=== PATIENT | male | born 1965 | race African-American/Black ===

== ENCOUNTER 2020-09-19 07:22 | Emergency (ER) | payer MEDICAID, OTHER ==
[~2020-09-19] VITALS: Ht 177.8 cm; Wt 90.8 kg
[~2020-09-19 07:22] MED LIST: ALBU8.5H8 IH; NO HOME MEDS
[2020-09-19 07:32] VITALS: BP 127/74
== END 2020-09-19 08:52 | disposition home or self-care (01) ==
LOC: ER 07:23
DX: K40.90 Unilateral inguinal hernia, without obstruction or gangrene, not specified as recurrent (principal); Z87.891 Personal history of nicotine dependence; Z79.899 Other long term (current) drug therapy; Z72.89 Other problems related to lifestyle; Z87.01 Personal history of pneumonia (recurrent)
CPT/HCPCS: 99281

== ENCOUNTER 2021-03-08 18:18 | Emergency (ER) | payer MEDICAID ==
[~2021-03-08] VITALS: Ht 177.8 cm; Wt 85.0 kg
[~2021-03-08 18:18] MED LIST changes: +ALBU8.5H17 IH; -ALBU8.5H8 IH
[2021-03-08] MEDS ORDERED: CASIRIVIMAB/IMDEVIMAB inject. 10 ML in normal saline 100ml IV soln 100 ML IV ONE (20:15)
[2021-03-08] MEDS ORDERED: BAMLANIVIMAB 700MG, ETESEVIMAB 1,400MG in NS 100mL (Total vol 160ml) IV ONE (20:20)
[2021-03-08 22:28] VITALS: BP 124/87
== END 2021-03-08 22:30 | disposition home or self-care (01) ==
LOC: ER 18:19
DX: U07.1 COVID-19 (principal); R07.81 Pleurodynia; R06.02 Shortness of breath; R05.9 Cough, unspecified; F15.90 Other stimulant use, unspecified, uncomplicated; Z87.01 Personal history of pneumonia (recurrent); Z72.89 Other problems related to lifestyle; Z79.899 Other long term (current) drug therapy
CPT/HCPCS: 71045; 87635; 99284; C9803; M0245; Q0245; Q0239

== ENCOUNTER 2021-06-07 07:27 | Day surgery (SDC) | payer MEDICAID ==
[2021-06-02 13:55] LABS: BASOPHILS # (AUTO) 0.1 X10'3 (0-0.2); BASOPHILS % (AUTO) 1.3 % (0-1); EOSINOPHILS # (AUTO) 0.2 X10'3 (0-0.9); EOSINOPHILS % (AUTO) 3.2 % (0-6); LYMPHOCYTES # (AUTO) 2.3 X10'3 (1.1-4.8); LYMPHOCYTES % (AUTO) 39.3 % (21-51); MEAN CORPUSCULAR HGB CONC 33.8 g/dL (33.0-36.5); MEAN CORPUSCULAR VOLUME 88.8 FL (78-98); MEAN PLATELET VOLUME 7.8 FL (7.4-10.4); MONOCYTES # (AUTO) 0.7 X10'3 (0-0.9); MONOCYTES % (AUTO) 12.4 % (2-12); NEUTROPHILS # (AUTO) 2.5 X10'3 (1.8-7.7); NEUTROPHILS % (AUTO) 43.8 % (42-75); PRE OP HEMATOCRIT 40.8 % (42.0-52.0); PRE OP HEMOGLOBIN 13.8 g/dL (14.0-17.9); PRE OP PLATELET COUNT 213 X10'3 (140-440); RED BLOOD COUNT 4.59 X10'6 (4.70-6.10); RED CELL DISTRIBUTION WIDTH 14.3 % (11.5-14.5)
[2021-06-02 14:26] LABS: ALBUMIN 3.9 G/DL (3.4-5.0); ALBUMIN/GLOBULIN RATIO 1.3 (1.1-1.5); ALKALINE PHOSPHATASE 76 IU/L (46-116); BLOOD UREA NITROGEN 17 MG/DL (7-18); BUN/CREATININE RATIO 13.5 (5.4-32.0); CALCIUM 9.4 MG/DL (8.5-10.1); CHLORIDE 104 MMOL/L (99-107); CREATININE 1.26 MG/DL (0.60-1.10); PRE OP ALT 32 U/L (30-65); PRE OP ANION GAP 8 (8-16); PRE OP AST 43 U/L (10-37); PRE OP BILIRUB, TOTAL 0.3 MG/DL (0.0-1.0); PRE OP GLUCOSE 98 MG/DL (70-104); PRE OP POTASSIUM 3.9 MMOL/L (3.4-5.1); PRE OP SODIUM 141 MMOL/L (135-145); TOTAL CARBON DIOXIDE 29.4 MMOL/L (24-32); eGFR 72 ML/MIN
[~2021-06-07] VITALS: Ht 177.8 cm; Wt 90.9 kg
[2021-06-07] VITALS (19 sets, daily range): BP systolic 122–146; BP diastolic 71–105
[~2021-06-07 07:27] MED LIST changes: -ALBU8.5H17 IH; +BUPIVAcaine/PF 2.5mg/ml (0.25%) 10ml vial ONE; +cefazolin/dext.iso 2gm/50ml IV ONE; +famotidine 20mg tablet PO ONE; +ringers solution, lacted 1,000 ML IV SCH
[2021-06-07] MEDS ORDERED: ringers solution, lacted 1,000 ML IV SCH (07:45)
[2021-06-07] MEDS ORDERED: morphine 2 MG/ML inj. syringe IV PRN (07:45)
[2021-06-07] MEDS ORDERED: labetalol 20mg/4ml (5mg/ml) syringe IV PRN (07:45)
[2021-06-07] MEDS ORDERED: morphine 4 MG/ML inj SYRINge IV PRN (07:45)
[2021-06-07] MEDS ORDERED: hydrALAZINE 20mg/ml inj. IV PRN (07:45)
[2021-06-07] MEDS ORDERED: ondansetron/PF 4mg/2ml inj IV PRN (07:45)
[2021-06-07] MEDS ORDERED: fentaNYL/PF 50MCG/1 ML 2ML syringe IV PRN ×2 (07:45)
[2021-06-07] MEDS ORDERED: sevoflurane 250ml liquid IH ONE (08:09)
[2021-06-07] MEDS ORDERED: fentaNYL/PF 50MCG/1 ML 2ML syringe ONE (08:16)
[2021-06-07] MEDS ORDERED: midazolam 1 mg/ML 2ml injection ONE (08:16)
[2021-06-07] MEDS ORDERED: LIDOcaine 2% (20mg/ml) 5ml vial ONE (08:26)
[2021-06-07] MEDS ORDERED: propofol inj 20 ML IV ONE (08:26)
[2021-06-07] MEDS ORDERED: glycopyrrolate 0.2mg/ml inj ONE (08:27)
[2021-06-07] MEDS ORDERED: dexamethasone sod phosphate 4mg/ml inj. ONE (08:27)
[2021-06-07] MEDS ORDERED: neostigmine methylsulfate 1 MG/ML 10ml vial ONE (08:27)
[2021-06-07] MEDS ORDERED: rocuronium 10mg/ml inj IV ONE ×2 (08:27→09:43)
[2021-06-07] MEDS ORDERED: ondansetron/PF 4mg/2ml inj ONE (08:27)
--- NOTE | 2021-06-07 10:04 | NUR ---
Received from OR via KHOA MCKINNEY RUNNING TO LEFT 20G AC. ISLAND DRESSNG TO LAP SITES X3 CDI. PT WITH OPA IN AND MASK ON. , accompanied by Anesthesiologist NATALIE and report given by STOCKKEEPER AND Anesthesiolgist. Addendum: 06/07/21 at 1023 by Belkis Borges RN Amended: Links added.
[2021-06-07] MEDS ORDERED: LIDOcaine 2% 10ml TOPICAL JELLY (Urojet) MM ONE (13:25)
--- NOTE | 2021-06-07 14:04 | NUR ---
TOLENTINO CATHETER PLACED IN PATIENT 2' INABILITY TO VOID. VSS DENIES PAIN. DRESSING AND TAKEN OUT BY FRIEND AND TAKEN HOME. ALL QUESTIONS ANSWERED AND CRITERIA MET FOR DC. IV OUT WITHOUT COMPLICATIONS. Addendum: 06/07/21 at 1424 by Steven Estrada RN, RN Amended: Links added.
== END 2021-06-07 14:04 | disposition home or self-care (01) ==
LOC: PAS 07:27
PROVIDERS: ATTEND Surgery
DX: K40.30 Unilateral inguinal hernia, with obstruction, without gangrene, not specified as recurrent (principal); Z79.899 Other long term (current) drug therapy; Z98.890 Other specified postprocedural states; Z87.01 Personal history of pneumonia (recurrent); Z87.891 Personal history of nicotine dependence; Z72.89 Other problems related to lifestyle; Z20.822 Contact with and (suspected) exposure to COVID-19; Z80.8 Family history of malignant neoplasm of other organs or systems
CPT/HCPCS: 36415; 49650; 80053; 82948; 85025; 93005; C1758; C1781; J0690; J1100; J2250; J2405; J2704; J2710; J3010; J3490; J7030; J7120; S2900; U0003; U0005; Z7506; Z7508; Z7512; A4215; A4618

== ENCOUNTER 2021-06-10 16:43 | Emergency (ER) | payer MEDICAID ==
[~2021-06-10] VITALS: Ht 177.8 cm; Wt 86.0 kg
[~2021-06-10 16:43] MED LIST changes: -BUPIVAcaine/PF 2.5mg/ml (0.25%) 10ml vial ONE; -cefazolin/dext.iso 2gm/50ml IV ONE; -famotidine 20mg tablet PO ONE; -ringers solution, lacted 1,000 ML IV SCH
[2021-06-10 17:36] LABS: BASOPHILS % (AUTO) 0.5 % (0-1); EOSINOPHILS # (AUTO) 0.1 X10'3 (0-0.9); EOSINOPHILS % (AUTO) 1.5 % (0-6); HEMATOCRIT 46.6 % (42.0-52.0); HEMOGLOBIN 15.8 g/dl (14.0-17.9); LYMPHOCYTES % (AUTO) 13.1 % (21-51); MEAN CORPUSCULAR HEMOGLOBIN 29.9 PG (27.0-31.0); MEAN CORPUSCULAR HGB CONC 33.9 g/dL (33.0-36.5); MEAN CORPUSCULAR VOLUME 88.3 FL (78-98); MEAN PLATELET VOLUME 7.7 FL (7.4-10.4); MONOCYTES # (AUTO) 0.8 X10'3 (0-0.9); MONOCYTES % (AUTO) 10.2 % (2-12); NEUTROPHILS # (AUTO) 5.9 X10'3 (1.8-7.7); NEUTROPHILS % (AUTO) 74.7 % (42-75); PLATELET COUNT 256 X10'3 (140-440); RED BLOOD COUNT 5.28 X10'6 (4.70-6.10); RED CELL DISTRIBUTION WIDTH 14.4 % (11.5-14.5); WHITE BLOOD COUNT 7.9 X10'3 (4.5-11.0)
[2021-06-10 18:00] LABS: ALANINE AMINOTRANSFERASE 32 U/L (12-78); ALBUMIN 4.1 G/DL (3.4-5.0); ALBUMIN/GLOBULIN RATIO 1.1 (1.1-1.5); ALKALINE PHOSPHATASE 93 IU/L (46-116); ANION GAP 6 (8-16); ASPARTATE AMINO TRANSFERASE 24 U/L (10-37); BILIRUBIN,TOTAL 0.8 MG/DL (0.1-1.0); BLOOD UREA NITROGEN 18 MG/DL (7-18); BUN/CREATININE RATIO 16.1 (5.4-32.0); CALCIUM 9.3 MG/DL (8.5-10.1); CHLORIDE 102 MMOL/L (99-107); CREATININE 1.12 MG/DL (0.60-1.10); GLUCOSE 89 MG/DL (70-104); MAGNESIUM 2.2 MG/DL (1.5-2.4); POTASSIUM 4.4 MMOL/L (3.5-5.1); SODIUM 139 MMOL/L (135-145); TOTAL CARBON DIOXIDE 30.9 MMOL/L (24-32); eGFR 82 ML/MIN
--- NOTE | 2021-06-10 18:02 | NUR ---
patient's spouse took her back to his car.
[2021-06-10 23:08] VITALS: BP 145/101
[2021-06-10] MEDS ORDERED: proCHLORperazine 10 MG/2 ml inj IV ONE (23:35)
[2021-06-10] MEDS ORDERED: normal saline 1000ML IV soln IVB ONE (23:35)
[2021-06-10] MEDS ORDERED: pantoprazole 40MG/D5 100ML BAG 100 ML IV ONE (23:35)
[2021-06-10] MEDS ORDERED: pantoprazole 40MG/NS 100ML BAG 100 ML IV ONE (23:50)
[2021-06-11] MEDS ORDERED: ONDA8TAB13 PO ×2 (01:48)
[2021-06-11] MEDS ORDERED: PANT-47 PO ×2 (01:48)
[2021-06-11 02:38] LABS: CLARITY,URINE SLIGHTLY CLOUDY (Clear); GLUCOSE, URINE NEGATIVE (Neg); KETONES,URINE TRACE mg/dl (Neg); LEUKOCYTE ESTERASE ,URINE NEGATIVE (Neg); NITRITES, URINE NEGATIVE (Neg); OCCULT BLOOD,URINE SMALL (Neg); PROTEIN,URINE TRACE mg/dl (Neg); UROBILINOGEN,URINE 0.2 E.U/dL (0.2-1.0)
[2021-06-11 02:41] LABS: COLOR,URINE AMBER (Yellow); UA COLLECTION TYPE CLN CATCH MIDSTREAM
[2021-06-11 03:22] LABS: BACTERIA,URINE 2+ /HPF (Neg); WBC,URINE 20-30 /HPF (0-4)
[2021-06-11 03:23] LABS: MUCUS STRANDS FEW /LPF (Neg); SPERM MANY /HPF (NEGATIVE); SQUAMOUS EPITHELIAL CELL,UR FEW /LPF (FEW)
[2021-06-12] MEDS ORDERED: NAPR220T67 PO (15:04)
== END 2021-06-11 02:34 | disposition home or self-care (01) ==
LOC: ER 16:44
DX: R10.13 Epigastric pain (principal); K40.90 Unilateral inguinal hernia, without obstruction or gangrene, not specified as recurrent; R11.0 Nausea; R19.7 Diarrhea, unspecified; F17.200 Nicotine dependence, unspecified, uncomplicated; Z87.01 Personal history of pneumonia (recurrent); Z79.899 Other long term (current) drug therapy
CPT/HCPCS: 36415; 80053; 81001; 83735; 85025; 87077; 87088; 87186; 96361; 96374; 96375; 99284; C9113; J0780; J7030

== ENCOUNTER 2021-06-12 12:06 | Inpatient (IN) | payer MEDICAID ==
[~2021-06-12] VITALS: Ht 177.8 cm; Wt 99.5 kg
[~2021-06-12 12:06] MED LIST changes: +ONDA8TAB13 PO; +PANT-47 PO
--- NOTE | 2021-06-12 12:53 | NUR ---
ATTEMPT EKG, PT CURRENTLY VOMITING AND ROLLING IN BED. WILL ATTEMPT AGAIN AT LATER TIME AFTER MEDS.
[2021-06-12 12:56] LABS: BASOPHILS % (AUTO) 0.2 % (0-1); EOSINOPHILS % (AUTO) 0.5 % (0-6); HEMATOCRIT 54.5 % (42.0-52.0); LYMPHOCYTES # (AUTO) 0.6 X10'3 (1.1-4.8); LYMPHOCYTES % (AUTO) 11.9 % (21-51); MEAN CORPUSCULAR VOLUME 88.4 FL (78-98); MEAN PLATELET VOLUME 8.6 FL (7.4-10.4); MONOCYTES % (AUTO) 18.4 % (2-12); NEUTROPHILS # (AUTO) 3.7 X10'3 (1.8-7.7); PLATELET COUNT 321 X10'3 (140-440); RED BLOOD COUNT 6.16 X10'6 (4.70-6.10); RED CELL DISTRIBUTION WIDTH 14.4 % (11.5-14.5); WHITE BLOOD COUNT 5.3 X10'3 (4.5-11.0)
[2021-06-12 13:03] LABS: HEMOGLOBIN 18.5 g/dl (14.0-17.9)
--- NOTE | 2021-06-12 13:04 | NUR ---
HGB 18.[address] LYNNE
[2021-06-12 13:05] LABS: ALANINE AMINOTRANSFERASE 65 U/L (12-78); ALBUMIN 4.6 G/DL (3.4-5.0); ALBUMIN/GLOBULIN RATIO 0.8 (1.1-1.5); ALKALINE PHOSPHATASE 114 IU/L (46-116); ANION GAP 15 (8-16); ASPARTATE AMINO TRANSFERASE 51 U/L (10-37); BILIRUBIN,TOTAL 1.3 MG/DL (0.1-1.0); BLOOD UREA NITROGEN 54 MG/DL (7-18); BUN/CREATININE RATIO 21.8 (5.4-32.0); CALCIUM 9.5 MG/DL (8.5-10.1); CHLORIDE 94 MMOL/L (99-107); CREATININE 2.48 MG/DL (0.60-1.10); GLUCOSE 161 MG/DL (70-104); POTASSIUM 4.8 MMOL/L (3.5-5.1); SODIUM 134 MMOL/L (135-145); TOTAL CARBON DIOXIDE 25.2 MMOL/L (24-32); TOTAL PROTEIN 10.1 G/DL (6.4-8.2); eGFR 33 ML/MIN
[2021-06-12] MEDS ORDERED: normal saline 1000ML IV soln IVB ONE ×2 (13:10→15:10)
[2021-06-12] MEDS ORDERED: ondansetron/PF 4mg/2ml inj IV ONE ×2 (13:10→20:50)
[2021-06-12] MEDS: morphine 4 MG/ML inj SYRINge IV PRN ×2 (13:22→17:14)
[2021-06-12 13:32] LABS: PLATELET ESTIMATE NORMAL; TOTAL CELLS COUNTED 100
[2021-06-12] MEDS ORDERED: NAPR220T67 PO (15:04)
[2021-06-12] MEDS ORDERED: magnesium Cl slow-release 64mg tablet PO PRN (16:15)
[2021-06-12] MEDS ORDERED: potassium Cl 20 mEq SR tablet PO PRN ×2 (16:15)
[2021-06-12] MEDS ORDERED: magnesium 4gm in 100ml NS 100 ML IV PRN (16:15)
[2021-06-12] MEDS ORDERED: magnesium 2GM in 50ml NS 50 ML IV PRN (16:15)
[2021-06-12] MEDS ORDERED: potassium CL 10mEq/100ml bag 100 ML IV PRN (16:15)
[2021-06-12] MEDS: normal saline 1000ml 1,000 ML IV SCH ×2 (16:15→22:00)
--- NOTE | 2021-06-12 16:55 | NUR ---
ATTEMPT NG TUBE X 6 TIMES 16 14 12 FR ALL USED SECOND NURSE ALLY ATTEMPTED X 2
[2021-06-12 17:16] LABS: MAGNESIUM 2.2 MG/DL (1.5-2.4); POTASSIUM 4.1 MMOL/L (3.5-5.1)
[2021-06-12] MEDS ORDERED: LIDOcaine Viscous 15ml cup MM PRN ×2 (19:25→19:30)
[2021-06-12] MEDS: K and/or MAG REPLACEMENT MC SCH (20:00)
[2021-06-12] MEDS: morphine 2 MG/ML inj. syringe IV PRN (21:03)
--- NOTE | 2021-06-12 21:20 | NUR ---
Received report from Brooklyn OLIVAS Rn. Patient to follow shortly.
--- NOTE | 2021-06-12 21:30 | NUR ---
Patient arrived to floor via gurney from the ER. Patient transferred himself into bed and was immediately placed back on low cont suction. Brown drainage noted to YUMI luna. Pt. denied being in a lot of pain at this time as Er had given him pain medication prior to transfer up here. Addendum: 06/13/21 at 0129 by Aimee Lopez RN Placed on low intermittent suction NOT continuous.
[2021-06-12 21:40] VITALS: BP 151/70
[2021-06-13] VITALS (28 sets, daily range): BP systolic 74–168; BP diastolic 41–88
[2021-06-13] MEDS: morphine 2 MG/ML inj. syringe IV PRN ×3 (00:40→06:49)
[2021-06-13] MEDS ORDERED: morphine 2 MG/ML inj. syringe IV PRN ×2 (01:00→03:50)
[2021-06-13] MEDS: ondansetron/PF 4mg/2ml inj IV PRN ×3 (01:53→15:58)
--- NOTE | 2021-06-13 01:57 | NUR ---
Patient has not voided since being transferred to this floor.Bladder scan revealed >500cc in bladder. New order for F/C for retention and UA.
[2021-06-13] MEDS ORDERED: LIDOcaine 2% 10ml TOPICAL JELLY (Urojet) TP ONE (02:00)
[2021-06-13 02:42] LABS: CLARITY,URINE CLOUDY (Clear); COLOR,URINE YELLOW (Yellow); GLUCOSE, URINE NEGATIVE (Neg); KETONES,URINE NEGATIVE (Neg); LEUKOCYTE ESTERASE ,URINE TRACE (Neg); NITRITES, URINE NEGATIVE (Neg); OCCULT BLOOD,URINE TRACE-INTACT (Neg); PH,URINE 5.5 (4.8-8.0); PROTEIN,URINE TRACE mg/dl (Neg); UROBILINOGEN,URINE 0.2 E.U/dL (0.2-1.0)
[2021-06-13 02:45] LABS: UA COLLECTION TYPE FOLEY CATH
[2021-06-13 02:50] LABS: HYALINE CASTS >30 /LPF (NEGATIVE); MUCUS STRANDS MANY /LPF (Neg); SQUAMOUS EPITHELIAL CELL,UR FEW /LPF (FEW)
[2021-06-13 02:51] LABS: BACTERIA,URINE 3+ /HPF (Neg); RBC,URINE 0-2 /HPF (0-2)
[2021-06-13 02:52] LABS: TRANSITIONAL EPI CELLS,URINE FEW /HPF
[2021-06-13 06:00] LABS: BASOPHILS % (AUTO) 0.1 % (0-1); EOSINOPHILS % (AUTO) 0.1 % (0-6); HEMATOCRIT 47.7 % (42.0-52.0); HEMOGLOBIN 15.9 g/dl (14.0-17.9); LYMPHOCYTES # (AUTO) 0.3 X10'3 (1.1-4.8); LYMPHOCYTES % (AUTO) 8.6 % (21-51); MEAN CORPUSCULAR HEMOGLOBIN 29.9 PG (27.0-31.0); MEAN CORPUSCULAR HGB CONC 33.4 g/dL (33.0-36.5); MEAN CORPUSCULAR VOLUME 89.6 FL (78-98); MEAN PLATELET VOLUME 8.4 FL (7.4-10.4); MONOCYTES # (AUTO) 0.8 X10'3 (0-0.9); MONOCYTES % (AUTO) 19.2 % (2-12); NEUTROPHILS # (AUTO) 2.9 X10'3 (1.8-7.7); PLATELET COUNT 254 X10'3 (140-440); RED BLOOD COUNT 5.32 X10'6 (4.70-6.10); RED CELL DISTRIBUTION WIDTH 14.1 % (11.5-14.5); WHITE BLOOD COUNT 4.1 X10'3 (4.5-11.0)
[2021-06-13 06:41] LABS: ALBUMIN 3.4 G/DL (3.4-5.0); ANION GAP 25 (8-16); BLOOD UREA NITROGEN 79 MG/DL (7-18); BUN/CREATININE RATIO 16.4 (5.4-32.0); CALCIUM 7.6 MG/DL (8.5-10.1); CHLORIDE 101 MMOL/L (99-107); CREATININE 4.82 MG/DL (0.60-1.10); GLUCOSE 138 MG/DL (70-104); POTASSIUM 4.2 MMOL/L (3.5-5.1); SODIUM 141 MMOL/L (135-145); TOTAL CARBON DIOXIDE 15.5 MMOL/L (24-32); eGFR 15 ML/MIN
--- NOTE | 2021-06-13 06:45 | NUR ---
Problems reprioritized. Patient report given, questions answered & plan of care reviewed with Paola HARLEY.
--- NOTE | 2021-06-13 07:28 | NUR ---
PAGER ID: [phone] MESSAGE: Paola Surg [phone] Re: Zachary [id number] patient very painful please call
[2021-06-13 07:29] LABS: NUCLEATED RED BLOOD CELLS 1 /100WBC (0-0); PLATELET ESTIMATE NORMAL; TOTAL CELLS COUNTED 100
[2021-06-13 07:34] LABS: GIANT PLATELET FEW
[2021-06-13] MEDS: K and/or MAG REPLACEMENT MC SCH ×2 (08:00→20:00)
[2021-06-13] MEDS: HYDROmorphone 1 mg/ml syringe IV PRN ×6 (09:00→14:48)
[2021-06-13] MEDS: metoclopramide 5 mg/ml inj IV SCH ×2 (13:33→21:10)
--- NOTE | 2021-06-13 15:54 | NUR ---
PAGER ID: [phone] MESSAGE: Shabnam-Surg [phone] Re: Zachary 348A please call concerned about patient and how much coming out of NG tube Received call back from Dr Gardner aware of patients output of NG of 3000ml's - Received orders for 1200ml NS bolus to run over 1 hour Keep IV fluids running NS @ 100 Labs Mg Phos, BMP, PBNP Dr Gardner is aware we are trying to get a hold of Dr Bland re: output and patient not looking very well.
--- NOTE | 2021-06-13 16:00 | NUR ---
was able to contact Dr Bland received orders for 500 ml's of 5% albumin
--- NOTE | 2021-06-13 16:01 | NUR ---
Called Dr Bland office unable to leave message due to voicemail full, will continue to try.
[2021-06-13] MEDS: normal saline 1000ml 1,000 ML IVB SCH ×2 (16:09→17:08)
[2021-06-13] MEDS ORDERED: albumin (Human) 5% 250ml 250 ML IV ONE ×3 (16:30→20:40)
--- NOTE | 2021-06-13 16:32 | NUR ---
PAGER ID: [phone] MESSAGE: Shabnam Surg [phone] Re: Zachary GilletteA Called Rapid patients BP 68/48 HR 116 hand to cold to get sats low urine output
[2021-06-13] MEDS ORDERED: dextrose 50%-water 50ml dispensing syringe IV ONE ×4 (16:35→20:55)
--- NOTE | 2021-06-13 16:35 | NUR ---
Rapid response called on patient due to low urine output. Patients NG tube 3000ml's+ of gandhi colored drainage. Patients current blood pressure is 68/48 HR 118 RR 24 Temp 98.0Ax and unable to get O2 sats due to patient is very cold. Patients blood glucose was 34. Patient was given 1 amp dextrose, currently has a NS bolus of 1200ml's running, Urine output appears to only been 70ml's today. Patients family at bedside and requested they step out into the ma so we can better treat patient. Cassie ICU charge showed up to the floor along with Respiratory.
[2021-06-13 16:54] LABS: ABG HCO3 7.2 mmol/L (22.0-26.0); ABG OXYGEN SATURATION 97.2 % (94-97); ABG PO2 (T) 117.3 mmHg (75.0-100.0); ALLEN'S TEST POSITIVE; FCOHb 0.4 % (0.0-3.9); FLOW 15 L/min; FMetHb 0.3 % (0.0-1.5); FO2Hb 96.5 % (94-97); TOTAL HEMOGLOBIN 15.3 G/dl (14.0-18.0)
--- NOTE | 2021-06-13 17:15 | NUR ---
Patients daughter and other visitor were waiting in the waiting area on surgical. I went over and spoke to both of them and advised what was going on at this time and that patient was being transported to ICU, I stated patient might end up being intubated and possibly going to surgery tonight but she would be able to get a better report once patient is stabilized in the ICU. Daughter would like to have her sister notified her name is Susie Sharma i will put the phone number in the SBAR.
[2021-06-13 17:30] LABS: ALBUMIN 3.1 G/DL (3.4-5.0); ANION GAP 29 (8-16); BLOOD UREA NITROGEN 96 MG/DL (7-18); BUN/CREATININE RATIO 14.2 (5.4-32.0); CALCIUM 7.2 MG/DL (8.5-10.1); CHLORIDE 101 MMOL/L (99-107); CREATININE 6.74 MG/DL (0.60-1.10); GLUCOSE 79 MG/DL (70-104); MAGNESIUM 2.5 MG/DL (1.5-2.4); POTASSIUM 5.8 MMOL/L (3.5-5.1); SODIUM 140 MMOL/L (135-145); eGFR 10 ML/MIN
--- NOTE | 2021-06-13 17:30 | NUR ---
Patient transported to ICU via hospital bed with MELTER HELPER Cassie, Primary RN Paola and Resource RN Sg with respiratory with them. Patients critical values came in at 1730 CO@ 10.1 and Phos 12.9. Called results to ICU Ursula. I also called Dr Gardner and Dr Bland and they are both aware of the criticals. I also informed both Md's of the results of K+ 5.8 [address] 2[address] Bland stated that he will be taking the patient to surgery.
[2021-06-13 17:32] LABS: TOTAL CARBON DIOXIDE 10.1 MMOL/L (24-32)
[2021-06-13 17:33] LABS: PHOSPHORUS 12.9 MG/DL (2.3-4.5)
[2021-06-13] MEDS ORDERED: fentaNYL/PF 50MCG/1 ML 2ML syringe ONE (17:35)
[2021-06-13] MEDS ORDERED: NORepinephrine 8mg/ 250ml NS 250 ML IV ONE (17:36)
[2021-06-13] MEDS ORDERED: midazolam 1 mg/ML 2ml injection IV ONE (17:55)
--- NOTE | 2021-06-13 18:30 | NUR ---
Patient arrived to ICU via the Rapid response team (ICU supercharge repair supervisor and RT). Med/Surg nurse also accompanied the patient to ICU. Patient arrived via bed and was alert and oriented x3 in seemingly extreme distress and pain. Dr. Cross met us bedside. Patient slid over to ICU bed and connected to ICU monitors. Patient blood pressure was 74/42, at time of arrival. Levophed was started. Shortly after receiving patient Dr. Cross decided to intubate the patient. Patient was given a total of 100 mcg of Fent, 6 mg of Versed, 2 amps of Bicarb, 20 of Etomidate and 20 of Rocuronium. Patient was intubated and then Dr. Cross moved to insert a central line and arterial line in the right groin. After line placement was successful patient was then started on Fentanyl and Versed per MD order and titrated per protocol. Chest xray confirmed placement of ETT. Per Med/surg nurse, "patient is here for SBO and recently had a hernia repair". Patient has critical LA of [address] Cross aware. Patient's Levophed was titrated per protocol to maintain a MAP of 60.
[2021-06-13] MEDS ORDERED: NORepinephrine inj. 8 MG in dextrose 5%-water 242 ML IV SCH (18:40)
--- NOTE | 2021-06-13 18:40 | NUR ---
Patient in room ICU 2044. I have received report from Lorri HARLEY and had the opportunity to ask questions and assume patient care.
[2021-06-13] MEDS: normal saline 1000ml 1,000 ML IV SCH (19:21)
[2021-06-13 19:22] LABS: ABG BASE EXCESS -17.3 mmol/L (-2.0-2.0); ABG HCO3 12.1 mmol/L (22.0-26.0); ABG OXYGEN SATURATION 99.2 % (94-97); ABG PCO2 (T) 39.8 mmHg (35.0-48.0); ABG PO2 (T) 243.4 mmHg (75.0-100.0); FCOHb 0.3 % (0.0-3.9); FMetHb 0.1 % (0.0-1.5); FO2Hb 98.8 % (94-97); PATIENT TEMPERATURE 36.2; PEEP 5 cm H2O; RESPIRATORY RATE 26 b/min; TIDAL VOLUME 450 mL; TOTAL HEMOGLOBIN 14.3 G/dl (14.0-18.0)
[2021-06-13] MEDS ORDERED: rocuronium 10mg/ml inj IV ONE (19:35)
[2021-06-13] MEDS ORDERED: NORepinephrine 8 MG in NS 250 ML BAG (32 mcg/ml) IV ONE (19:35)
[2021-06-13] MEDS ORDERED: sevoflurane 250ml liquid IH ONE (19:35)
--- NOTE | 2021-06-13 19:45 | NUR ---
Pt off the floor to the OR.
--- NOTE | 2021-06-13 20:35 | NUR ---
Pt returned from OR. Placed back on our monitor and vent. All vaso active meds infusing through the central line. CVP and Art line transduced, zeroed, and have good waveform. Dr. Turner at bedside requesting a bicarb push and bicarb drip started along with 250ml albumin and increasing maintenance fluids increased to 250ml/hr. Orders placed, waiting on bicarb drip from pharmacy.
[2021-06-13] MEDS ORDERED: sodium bicarbonate (8.4%) 1 mEq/ml syringe IV ONE ×2 (20:40→20:55)
[2021-06-13 20:48] LABS: ABG BASE EXCESS -12.7 mmol/L (-2.0-2.0); ABG OXYGEN SATURATION 99.4 % (94-97); ABG PCO2 (T) 33.7 mmHg (35.0-48.0); ABG PO2 (T) 320.9 mmHg (75.0-100.0); FCOHb 0.2 % (0.0-3.9); FMetHb 0.3 % (0.0-1.5); FO2Hb 98.9 % (94-97); PATIENT TEMPERATURE 36.3; PEEP 5 cm H2O; RESPIRATORY RATE 28 b/min; TIDAL VOLUME 450 mL; TOTAL HEMOGLOBIN 12.7 G/dl (14.0-18.0)
[2021-06-13] MEDS ORDERED: sodium bicarbonate (8.4%) inj. 150 MEQ in dextrose 5%-water 1,000 ML IV SCH (20:50)
[2021-06-13] MEDS ORDERED: VANCOMYCIN 1GM/200ML IVPB 200 ML IV ONE (20:50)
[2021-06-13] MEDS: piperacillin/tazo 3.375gm/50ml 50 ML IV SCH (21:59)
[2021-06-13 23:51] LABS: BASOPHILS % (AUTO) 0.2 % (0-1); EOSINOPHILS % (AUTO) 0.3 % (0-6); HEMATOCRIT 38.7 % (42.0-52.0); HEMOGLOBIN 12.6 g/dl (14.0-17.9); LYMPHOCYTES # (AUTO) 0.3 X10'3 (1.1-4.8); LYMPHOCYTES % (AUTO) 18.2 % (21-51); MEAN CORPUSCULAR HEMOGLOBIN 29.1 PG (27.0-31.0); MEAN CORPUSCULAR HGB CONC 32.6 g/dL (33.0-36.5); MEAN CORPUSCULAR VOLUME 89.3 FL (78-98); MEAN PLATELET VOLUME 8.7 FL (7.4-10.4); MONOCYTES # (AUTO) 0.1 X10'3 (0-0.9); MONOCYTES % (AUTO) 6.8 % (2-12); NEUTROPHILS # (AUTO) 1.3 X10'3 (1.8-7.7); NEUTROPHILS % (AUTO) 74.5 % (42-75); PLATELET COUNT 151 X10'3 (140-440); RED BLOOD COUNT 4.33 X10'6 (4.70-6.10); RED CELL DISTRIBUTION WIDTH 14.7 % (11.5-14.5); WHITE BLOOD COUNT 1.8 X10'3 (4.5-11.0)
[2021-06-13 23:59] LABS: APTT 41 SECONDS (22-32)
[2021-06-14] VITALS (33 sets, daily range): BP systolic 81–126; BP diastolic 43–69
[2021-06-14 00:19] LABS: ALBUMIN 3.1 G/DL (3.4-5.0); ALBUMIN/GLOBULIN RATIO 1.4 (1.1-1.5); ALKALINE PHOSPHATASE 86 IU/L (46-116); ANION GAP 20 (8-16); BILIRUBIN,TOTAL 1.8 MG/DL (0.1-1.0); BLOOD UREA NITROGEN 102 MG/DL (7-18); BUN/CREATININE RATIO 15.8 (5.4-32.0); CHLORIDE 105 MMOL/L (99-107); CREATININE 6.47 MG/DL (0.60-1.10); GLUCOSE 136 MG/DL (70-104); MAGNESIUM 1.9 MG/DL (1.5-2.4); PHOSPHORUS 8.2 MG/DL (2.3-4.5); POTASSIUM 4.5 MMOL/L (3.5-5.1); SODIUM 144 MMOL/L (135-145); TOTAL CARBON DIOXIDE 18.8 MMOL/L (24-32); TOTAL PROTEIN 5.3 G/DL (6.4-8.2); eGFR 11 ML/MIN
[2021-06-14 00:58] LABS: ASPARTATE AMINO TRANSFERASE 6325 U/L (10-37)
[2021-06-14 00:59] LABS: ALANINE AMINOTRANSFERASE 3220 U/L (12-78)
[2021-06-14 01:02] LABS: CALCIUM 5.3 MG/DL (8.5-10.1)
--- NOTE | 2021-06-14 01:12 | NUR ---
Received critical calcium lab 5.3 from lab at 0100, spoke with Dr Corona Gar at 0112 and informed him about the patients condition and the critical lab result. The Doctor ordered Calcium Gluconate 3 gm IV one time dose. Will continue to monitor the patient.
[2021-06-14 01:58] LABS: GIANT PLATELET FEW; LARGE PLATELETS FEW; PLATELET ESTIMATE NORMAL; SMUDGE CELLS 1+; TOTAL CELLS COUNTED 100; TOXIC GRANULATION 2+; TOXIC VACUOLATION 2+
[2021-06-14] MEDS: CALCIUM GLUC 1gm/50ml NACL,iso 50 ML IV SCH ×5 (02:24→23:12)
--- NOTE | 2021-06-14 02:40 | NUR ---
Continuing to titrate up the levophed to maintain a MAP greater than 60mmHg. Pt still afebrile, tolerating vent well.
[2021-06-14] MEDS: NORepinephrine 8mg/ 250ml NS 250 ML IV PRN ×3 (02:53→08:17)
[2021-06-14] MEDS: sodium bicarbonate (8.4%) inj. 150 MEQ in dextrose 5%-water 1,000 ML IV SCH ×3 (02:53→19:49)
[2021-06-14] MEDS: normal saline 1000ml 1,000 ML IV SCH ×7 (02:53→22:08)
[2021-06-14] MEDS: metoclopramide 5 mg/ml inj IV SCH ×4 (02:55→20:57)
[2021-06-14 03:06] LABS: ABG BASE EXCESS -10.6 mmol/L (-2.0-2.0); ABG HCO3 15.2 mmol/L (22.0-26.0); ABG OXYGEN SATURATION 89.1 % (94-97); ABG PCO2 (T) 33.5 mmHg (35.0-48.0); ABG PO2 (T) 59.7 mmHg (75.0-100.0); FCOHb 0.8 % (0.0-3.9); FMetHb 0.3 % (0.0-1.5); FO2Hb 88.1 % (94-97); PATIENT TEMPERATURE 36.7; PEEP 5 cm H2O; RESPIRATORY RATE 28 b/min; TIDAL VOLUME 450 mL; TOTAL HEMOGLOBIN 13.8 G/dl (14.0-18.0)
[2021-06-14] MEDS ORDERED: vasopressin inj. 40 UNIT in dextrose 5%-water 50ml 38 ML IV SCH (05:10)
[2021-06-14] MEDS ORDERED: ringers solution, lacted 1,000 ML IV SCH (05:10)
[2021-06-14 05:34] LABS: BASOPHILS % (AUTO) 0.1 % (0-1); EOSINOPHILS # (AUTO) 0.1 X10'3 (0-0.9); EOSINOPHILS % (AUTO) 2.6 % (0-6); HEMATOCRIT 37.6 % (42.0-52.0); HEMOGLOBIN 12.6 g/dl (14.0-17.9); LYMPHOCYTES # (AUTO) 0.3 X10'3 (1.1-4.8); MEAN CORPUSCULAR HEMOGLOBIN 29.5 PG (27.0-31.0); MEAN CORPUSCULAR HGB CONC 33.5 g/dL (33.0-36.5); MEAN CORPUSCULAR VOLUME 87.9 FL (78-98); MEAN PLATELET VOLUME 8.9 FL (7.4-10.4); MONOCYTES # (AUTO) 0.2 X10'3 (0-0.9); NEUTROPHILS # (AUTO) 2.7 X10'3 (1.8-7.7); NEUTROPHILS % (AUTO) 81.3 % (42-75); PLATELET COUNT 155 X10'3 (140-440); RED BLOOD COUNT 4.28 X10'6 (4.70-6.10); RED CELL DISTRIBUTION WIDTH 14.4 % (11.5-14.5); WHITE BLOOD COUNT 3.3 X10'3 (4.5-11.0)
--- NOTE | 2021-06-14 05:40 | NUR ---
Rounded on pt with Dr. Quinn, received orders to start vasopressin and give a 1L LR bolus due to high levels of levo required.
[2021-06-14 05:59] LABS: ALBUMIN 2.7 G/DL (3.4-5.0); ANION GAP 22 (8-16); BLOOD UREA NITROGEN 107 MG/DL (7-18); BUN/CREATININE RATIO 16.3 (5.4-32.0); CHLORIDE 108 MMOL/L (99-107); CREATININE 6.56 MG/DL (0.60-1.10); GLUCOSE 104 MG/DL (70-104); MAGNESIUM 1.9 MG/DL (1.5-2.4); POTASSIUM 4.6 MMOL/L (3.5-5.1); SODIUM 146 MMOL/L (135-145); TOTAL CARBON DIOXIDE 16.3 MMOL/L (24-32); eGFR 11 ML/MIN
[2021-06-14 06:04] LABS: CALCIUM 5.2 MG/DL (8.5-10.1)
--- NOTE | 2021-06-14 06:30 | NUR ---
Patient in room ICU 2044. I have received report from Anabel HARLEY and had the opportunity to ask questions and assume patient care.
[2021-06-14] MEDS ORDERED: glucagon, human recombinant 1mg kit SUBCUT PRN (07:10)
[2021-06-14] MEDS ORDERED: dextrose 50%-water 50ml dispensing syringe IV PRN (07:10)
[2021-06-14] MEDS: dextrose 50%-water 50ml dispensing syringe IV PRN ×2 (07:19→19:27)
[2021-06-14 07:39] LABS: ALBUMIN/GLOBULIN RATIO 1.3 (1.1-1.5); ALKALINE PHOSPHATASE 86 IU/L (46-116); BILIRUBIN,TOTAL 1.9 MG/DL (0.1-1.0); TOTAL PROTEIN 4.8 G/DL (6.4-8.2)
--- NOTE | 2021-06-14 07:39 | NUR ---
Problems reprioritized. Patient report given, questions answered & plan of care reviewed with Alexi HARLEY and Sandra HARLEY.
[2021-06-14] MEDS: piperacillin/tazo 3.375gm/50ml 50 ML IV SCH ×2 (07:50→20:57)
[2021-06-14] MEDS: K and/or MAG REPLACEMENT MC SCH ×2 (07:53→20:00)
[2021-06-14 07:59] LABS: ALANINE AMINOTRANSFERASE 3351 U/L (12-78)
[2021-06-14 08:10] LABS: ASPARTATE AMINO TRANSFERASE 6761 U/L (10-37)
[2021-06-14] MEDS: FENTANYL-0.9 % NACL/PF 100 ML IV PRN ×2 (08:27→19:53)
[2021-06-14] MEDS ORDERED: sodium chloride 0.45% 1,000 ML in sodium chloride 0.45% 1,000 ML IV ONE (09:00)
[2021-06-14] MEDS ORDERED: sodium chloride 0.45% 1,000 ML IV ONE (09:18)
[2021-06-14] MEDS ORDERED: NORepinephrine 8mg/ 250ml NS 250 ML IV PRN (09:22)
[2021-06-14] MEDS: dextrose 5%-1/2 normal saline 1,000 ML IV SCH (09:37)
--- NOTE | 2021-06-14 09:46 | NUR ---
Family Son & daughter to see pt. Condition and plan explained. Daughter is in nursing school and one is in MA training. Questions answered.
[2021-06-14 10:35] LABS: ALBUMIN 2.2 G/DL (3.4-5.0); ANION GAP 19 (8-16); BLOOD UREA NITROGEN 100 MG/DL (7-18); BUN/CREATININE RATIO 16.1 (5.4-32.0); CHLORIDE 110 MMOL/L (99-107); CREATININE 6.21 MG/DL (0.60-1.10); GLUCOSE 86 MG/DL (70-104); PHOSPHORUS 6.3 MG/DL (2.3-4.5); POTASSIUM 4.4 MMOL/L (3.5-5.1); SODIUM 147 MMOL/L (135-145); TOTAL CARBON DIOXIDE 17.7 MMOL/L (24-32); eGFR 11 ML/MIN
[2021-06-14] MEDS ORDERED: ringers solution, lacted 1,000 ML IV ONE ×2 (10:45→16:25)
[2021-06-14 10:56] LABS: CALCIUM < 5.0 MG/DL (8.5-10.1)
[2021-06-14 11:30] LABS: ABG BASE EXCESS -12.1 mmol/L (-2.0-2.0); ABG PCO2 (T) 47.4 mmHg (35.0-48.0); ABG PO2 (T) 84.8 mmHg (75.0-100.0); FCOHb 0.3 % (0.0-3.9); FO2Hb 92.7 % (94-97); PATIENT TEMPERATURE 38.1; PEEP 5 cm H2O; TOTAL HEMOGLOBIN 11.7 G/dl (14.0-18.0)
--- NOTE | 2021-06-14 11:30 | NUR ---
Abd Pressure Intra-abdominal pressure measures at 11/12 mmHg. CN aware. aware also. Bladder scan revealed 206 mls.
--- NOTE | 2021-06-14 12:18 | NUR ---
Initial: Pt intubated s/p open laparotomy and lysis of adhesions for concern of SBO DX acute respiratory failure, EMERSON, lactic acidosis, hyperkalemia, and septic shock per EMR. Peristalsis present following lysis of adhesions though may require return to OR per MD note. MAP 63-71 this AM during rounds w/ NG in place to suction -3600ml output yesterday receiving multiple IV fluids for aggressive hydration per MD. Pt currently receiving Na-bicarb/D5W at 100ml/hr providing 408kcals/day and D5/NS at 50ml/hr providing 204 kcals/day. LBM 2/7 diarrhea LINE RUNNER per EMR. IF pt to have prolonged NPO on vent post-op may benefit from PN vs trickle EN pending GI function status. Will continue to monitor for nutrition intervention needs on vent. Rec: 1. IF prolonged NPO without GI function return; consider PN to meet nutrition needs post-op. IF TPN; consider 2:1 Clinimix non-E 09/17 at 115ml/hr w/ separate 250ml 20% intralipids to run 12HR/day /Sat at 20.83ml/hr. Would provide 2760ml volume/day, 138g AA, 414g DEX(3.19mg/kg/min), and 2103 avg kcals/day. 2. IF GI function returns; consider EN to meet nutrition needs while on vent. IF TF Vital AF at 90ml/hr goal 3. bowel care per MD post-op 4. weekly wts 5. upon extubation; advance diet as medically indicated to low-residue Addendum: 06/14/21 at [address] Amended: Links added.
[2021-06-14] MEDS ORDERED: VANCOMYCIN 1GM/200ML IVPB 200 ML IV PRN (12:20)
--- NOTE | 2021-06-14 14:06 | NUR ---
OR OR team transported pt on monitor to OR.
[2021-06-14] MEDS ORDERED: albumin (human) 25% 100ml IV 100 ML IV ONE (14:25)
[2021-06-14] MEDS ORDERED: albumin (Human) 5% 250ml 250 ML IV ONE (14:31)
--- NOTE | 2021-06-14 15:13 | NUR ---
Return from OR Pt returned from OR with OR team. Report received from El HARLEY. Dr Shultz reported approximately 1 L fluid from abdominal cavity as well as 1 L from NG. Island dressing with small amt of bleeding shadow noted and outlined. Levo increased to meet MAP goal of 65.
[2021-06-14 15:58] LABS: ABG BASE EXCESS -8.5 mmol/L (-2.0-2.0); ABG HCO3 16.4 mmol/L (22.0-26.0); ABG OXYGEN SATURATION 96.9 % (94-97); ABG PCO2 (T) 31.8 mmHg (35.0-48.0); ABG PO2 (T) 96.6 mmHg (75.0-100.0); FCOHb 0.4 % (0.0-3.9); FMetHb 0.3 % (0.0-1.5); FO2Hb 96.2 % (94-97); PATIENT TEMPERATURE 37.1; PEEP 5 cm H2O; RESPIRATORY RATE 26 b/min; TIDAL VOLUME 550 mL; TOTAL HEMOGLOBIN 11.2 G/dl (14.0-18.0)
[2021-06-14] MEDS: pantoprazole 40MG/NS 100ML BAG 100 ML IV SCH (16:13)
[2021-06-14] MEDS: midazolam 100mg in NS 100ml 100 ML IV PRN (16:15)
[2021-06-14] MEDS ORDERED: VANCOMYCIN 1GM/200ML IVPB 200 ML IV ONE (17:00)
[2021-06-14] MEDS ORDERED: CALCIUM GLUC 1gm/50ml NACL,iso 50 ML IV SCH (17:25)
[2021-06-14] MEDS ORDERED: NORepinephrine 8mg/ 250ml NS 250 ML IV ONE (18:19)
--- NOTE | 2021-06-14 18:20 | NUR ---
Problems reprioritized. Patient report given, questions answered & plan of care reviewed with Olga HARLEY.
[2021-06-14] MEDS: vasopressin inj. 40 UNIT in normal saline 50ml IV soln 38 ML IV SCH ×2 (18:21→19:32)
--- NOTE | 2021-06-14 18:21 | NUR ---
Patient in room ICU 2044. I have received report from Alexi HARLEY and had the opportunity to ask questions and assume patient care.
--- NOTE | 2021-06-14 18:22 | NUR ---
Quad strength Levophed not at bedside, standard strength Levophed overridden and hung until quad strength available.
--- NOTE | 2021-06-14 19:10 | NUR ---
patient temp 38.8, blankets removed and ice packs placed.
--- NOTE | 2021-06-14 19:30 | NUR ---
D50 given per protocol for blood sugar of 59. blood sugar rechecked after 15 minutes and was 91
[2021-06-14] MEDS: NORepinephrine inj. 32 MG in normal saline 250ml IV soln 218 ML IV PRN (19:51)
[2021-06-14 20:41] LABS: ALBUMIN 2.6 G/DL (3.4-5.0); ANION GAP 22 (8-16); BLOOD UREA NITROGEN 110 MG/DL (7-18); CHLORIDE 104 MMOL/L (99-107); CREATININE 7.34 MG/DL (0.60-1.10); GLUCOSE 62 MG/DL (70-104); PHOSPHORUS 5.9 MG/DL (2.3-4.5); POTASSIUM 5.4 MMOL/L (3.5-5.1); SODIUM 142 MMOL/L (135-145); TOTAL CARBON DIOXIDE 15.9 MMOL/L (24-32); eGFR 9 ML/MIN
[2021-06-14 20:59] LABS: CALCIUM < 5.0 MG/DL (8.5-10.1)
--- NOTE | 2021-06-14 21:47 | NUR ---
Calcium replacement running. Dr. Gar notified of patient's current critical values and continued hypoglycemia. Orders received. Will continue to monitor closely.
[2021-06-14] MEDS: sodium chloride inj. 154 MEQ in Dextrose 10%-water IV solution 961.5 ML IV SCH (22:26)
[2021-06-15] VITALS (33 sets, daily range): BP systolic 89–136; BP diastolic 52–73
[2021-06-15] MEDS: CALCIUM GLUC 1gm/50ml NACL,iso 50 ML IV SCH ×3 (00:26→03:22)
[2021-06-15] MEDS: normal saline 1000ml 1,000 ML IV SCH ×2 (01:18→04:55)
[2021-06-15 01:48] LABS: BASOPHILS % (AUTO) 0.2 % (0-1); EOSINOPHILS # (AUTO) 0.1 X10'3 (0-0.9); LYMPHOCYTES # (AUTO) 0.6 X10'3 (1.1-4.8); MEAN CORPUSCULAR VOLUME 87.2 FL (78-98); MONOCYTES # (AUTO) 0.1 X10'3 (0-0.9); NEUTROPHILS # (AUTO) 4.8 X10'3 (1.8-7.7); NEUTROPHILS % (AUTO) 85.6 % (42-75); WHITE BLOOD COUNT 5.6 X10'3 (4.5-11.0)
[2021-06-15 01:50] LABS: EOSINOPHILS % (AUTO) 2.5 % (0-6); HEMATOCRIT 31.3 % (42.0-52.0); HEMOGLOBIN 10.5 g/dl (14.0-17.9); LYMPHOCYTES % (AUTO) 10.5 % (21-51); MEAN CORPUSCULAR HEMOGLOBIN 29.2 PG (27.0-31.0); MEAN CORPUSCULAR HGB CONC 33.5 g/dL (33.0-36.5); MEAN PLATELET VOLUME 9.5 FL (7.4-10.4); MONOCYTES % (AUTO) 1.2 % (2-12); PLATELET COUNT 72 X10'3 (140-440); RED BLOOD COUNT 3.58 X10'6 (4.70-6.10); RED CELL DISTRIBUTION WIDTH 14.7 % (11.5-14.5)
[2021-06-15] MEDS: metoclopramide 5 mg/ml inj IV SCH ×2 (02:00→07:28)
[2021-06-15 02:08] LABS: ALBUMIN 2.3 G/DL (3.4-5.0); ANION GAP 23 (8-16); BLOOD UREA NITROGEN 112 MG/DL (7-18); BUN/CREATININE RATIO 14.7 (5.4-32.0); CHLORIDE 102 MMOL/L (99-107); CREATININE 7.64 MG/DL (0.60-1.10); GLUCOSE 103 MG/DL (70-104); MAGNESIUM 1.6 MG/DL (1.5-2.4); PHOSPHORUS 6.5 MG/DL (2.3-4.5); POTASSIUM 5.1 MMOL/L (3.5-5.1); SODIUM 141 MMOL/L (135-145); TOTAL CARBON DIOXIDE 16.4 MMOL/L (24-32); VANCOMYCIN,RANDOM 22.3 UG/ML; eGFR 9 ML/MIN
[2021-06-15 02:40] LABS: CALCIUM < 5.0 MG/DL (8.5-10.1)
--- NOTE | 2021-06-15 02:49 | NUR ---
Dr. Gar updated on current labs including critical values. Orders received.
[2021-06-15] MEDS ORDERED: ringers solution, lacted 1,000 ML IV ONE (02:50)
[2021-06-15 03:08] LABS: ABG BASE EXCESS -8.4 mmol/L (-2.0-2.0); ABG HCO3 15.6 mmol/L (22.0-26.0); ABG OXYGEN SATURATION 96.3 % (94-97); ABG PCO2 (T) 27.8 mmHg (35.0-48.0); ABG PO2 (T) 92.2 mmHg (75.0-100.0); FCOHb 0.4 % (0.0-3.9); FMetHb 0.3 % (0.0-1.5); FO2Hb 95.6 % (94-97); PATIENT TEMPERATURE 37.2; PEEP 5 cm H2O; RESPIRATORY RATE 26 b/min; TIDAL VOLUME 550 mL; TOTAL HEMOGLOBIN 10.8 G/dl (14.0-18.0)
[2021-06-15] MEDS ORDERED: CALCIUM GLUC 1gm/50ml NACL,iso 50 ML IV SCH (03:20)
--- NOTE | 2021-06-15 04:24 | NUR ---
Dr. Ellington updated on patient's condition including latest lab values during AM rounds. Orders per MD. Per MD: decrease sedation as tolerated, wean Vasopressin as tolerated.
[2021-06-15 04:30] LABS: TOTAL CELLS COUNTED 100
[2021-06-15 04:32] LABS: BURR CELLS 2+; PLATELET ESTIMATE DECREASED
[2021-06-15 04:33] LABS: TEAR DROP CELLS FEW; TOXIC GRANULATION 1+
[2021-06-15 04:34] LABS: LARGE PLATELETS FEW; TOXIC VACUOLATION FEW
[2021-06-15] MEDS: dextrose 5%-1/2 normal saline 1,000 ML IV SCH (04:55)
[2021-06-15] MEDS ORDERED: calcium chloride inj. 1,000 MG in normal saline 100ml IV soln 100 ML IV ONE (05:05)
[2021-06-15] MEDS ORDERED: calcium chloride 100 MG/1 ML inj IV ONE ×2 (05:10→07:30)
--- NOTE | 2021-06-15 06:12 | NUR ---
Problems reprioritized. Patient report given, questions answered & plan of care reviewed with Vanessa HARLEY.
[2021-06-15] MEDS: NORepinephrine inj. 32 MG in normal saline 250ml IV soln 218 ML IV PRN ×2 (06:59→16:39)
[2021-06-15] MEDS: vasopressin inj. 40 UNIT in normal saline 50ml IV soln 38 ML IV SCH (07:11)
[2021-06-15] MEDS: pantoprazole 40MG/NS 100ML BAG 100 ML IV SCH (07:28)
[2021-06-15] MEDS: piperacillin/tazo 3.375gm/50ml 50 ML IV SCH ×2 (07:28→20:05)
[2021-06-15] MEDS ORDERED: calcium chloride inj. 1,000 MG in NS 100ml IV soln (110ml) IV ONE (07:45)
[2021-06-15] MEDS: K and/or MAG REPLACEMENT MC SCH ×2 (08:00→20:00)
[2021-06-15] MEDS: FENTANYL-0.9 % NACL/PF 100 ML IV PRN ×2 (08:03→20:04)
[2021-06-15] MEDS: sodium bicarbonate (8.4%) inj. 150 MEQ in dextrose 5%-water 1,000 ML IV SCH ×2 (08:39→20:04)
[2021-06-15] MEDS: fluconazole-Diflucan 200mg/NS 100 ML IV SCH (08:57)
[2021-06-15 09:47] LABS: ALBUMIN 2.1 G/DL (3.4-5.0); ALBUMIN/GLOBULIN RATIO 1.3 (1.1-1.5); ALKALINE PHOSPHATASE 101 IU/L (46-116); ANION GAP 24 (8-16); BLOOD UREA NITROGEN 111 MG/DL (7-18); BUN/CREATININE RATIO 14.4 (5.4-32.0); CHLORIDE 103 MMOL/L (99-107); CREATININE 7.71 MG/DL (0.60-1.10); GLUCOSE 103 MG/DL (70-104); POTASSIUM 4.4 MMOL/L (3.5-5.1); SODIUM 143 MMOL/L (135-145); TOTAL CARBON DIOXIDE 16.3 MMOL/L (24-32); TOTAL PROTEIN 3.7 G/DL (6.4-8.2); eGFR 9 ML/MIN
[2021-06-15 09:48] LABS: ALANINE AMINOTRANSFERASE 1965 U/L (12-78)
[2021-06-15] MEDS ORDERED: magnesium 4gm in 100ml NS 100 ML IV PRN (09:50)
[2021-06-15] MEDS ORDERED: sodium phosphate inj. 30 MMOL in normal saline 250ml IV soln 250 ML IV PRN (09:50)
[2021-06-15] MEDS ORDERED: potassium Cl 40MEQ/250ML bag 270 ML IV PRN (09:50)
[2021-06-15] MEDS ORDERED: Duosol 4K/3 Ca (w/calcium) 5,000 ML HE SCH (09:50)
[2021-06-15 10:07] LABS: ASPARTATE AMINO TRANSFERASE 2412 U/L (10-37)
--- NOTE | 2021-06-15 11:38 | NUR ---
Dr. Cross at bedside to place abbie after he received consent from the daughter.
[2021-06-15] MEDS: Duosol 4K/3 Ca (w/calcium) 5,000 ML HE SCH ×6 (12:15→23:05)
[2021-06-15 12:25] LABS: PREALBUMIN 9.1 MG/DL (19-36); TRIGLYCERIDES 236 MG/DL (20-135)
[2021-06-15] MEDS: sodium chloride inj. 154 MEQ in Dextrose 10%-water IV solution 961.5 ML IV SCH (12:31)
[2021-06-15 12:33] LABS: BASOPHILS % (AUTO) 0.2 % (0-1); EOSINOPHILS # (AUTO) 0.2 X10'3 (0-0.9); EOSINOPHILS % (AUTO) 3.9 % (0-6); LYMPHOCYTES # (AUTO) 0.5 X10'3 (1.1-4.8); MONOCYTES # (AUTO) 0.1 X10'3 (0-0.9); NEUTROPHILS # (AUTO) 5.6 X10'3 (1.8-7.7); WHITE BLOOD COUNT 6.4 X10'3 (4.5-11.0)
[2021-06-15 12:34] LABS: HEMATOCRIT 28.5 % (42.0-52.0); HEMOGLOBIN 9.6 g/dl (14.0-17.9); LYMPHOCYTES % (AUTO) 7.4 % (21-51); MEAN CORPUSCULAR HEMOGLOBIN 29.5 PG (27.0-31.0); MEAN CORPUSCULAR HGB CONC 33.5 g/dL (33.0-36.5); MEAN PLATELET VOLUME 8.7 FL (7.4-10.4); MONOCYTES % (AUTO) 1.4 % (2-12); NEUTROPHILS % (AUTO) 87.1 % (42-75); PLATELET COUNT 52 X10'3 (140-440); RED BLOOD COUNT 3.24 X10'6 (4.70-6.10)
--- NOTE | 2021-06-15 12:41 | NUR ---
TPN Consult: Pt s/p OR for repeat laparotomy w/ resection of 20in of jejunum r/t ischemia per EMR. Pt to remain NPO w/ L NG in place to suction and MAP 78 this AM during rounds. Pt to start CVVH for EMERSON as well as TPN for nutrition per descriptive catalog librarian at rounds. Updated PN recs below using initial wt as pt +4.2kg w/ +9.2L fluid balance past 24 hours per EMR. Only able to meet 70% of minimum estimated protein needs without excessive fluids on CVVH given current formulary; shortage on custom PN materials per clinical pharmacist. Will monitor for PN tolerance and further adjustment needs. Rec: 1. Continuous TPN per descriptive catalog librarian via central access using 2:1 Clinimix non-E 09/22 at 105ml/hr w/ separate 250ml 20% intralipids to run 12HR/day /Sat at 20.83ml/hr. Would provide 2520ml volume/day, 126g AA, 504g DEX(3.71mg/kg/min), and 2361 avg kcals/day. 2. TG/PALB Q /; daily wts 3. monitor for PN tolerance and adjustment needs 4. bowel regimen per surgeon post-op 5. IF GI function returns consider trickle EN as medically indicated while on vent Addendum: 06/15/21 at [address] *CORRECTION* TPN Consult: Pt s/p OR for repeat laparotomy w/ resection of 20in of jejunum r/t ischemia per EMR. Pt to remain NPO w/ L NG in place to suction and MAP 78 this AM during rounds. Pt to start CVVH for EMERSON as well as TPN for nutrition per descriptive catalog librarian at rounds. Previous fluids to stop w/ PN initiation per descriptive catalog librarian. Updated PN recs below using initial wt as pt +4.2kg w/ +9.2L fluid balance past 24 hours per EMR. Only able to meet 70% of minimum estimated protein needs without excessive fluids on CVVH given current formulary; shortage on custom PN materials per clinical pharmacist. Will monitor for PN tolerance and further adjustment needs. Rec: 1. Continuous TPN per descriptive catalog librarian via central access using 2:1 Clinimix non-E 09/22 at 105ml/hr w/ separate 250ml 20% intralipids to run 12HR/day /Sat at 20.83ml/hr. Would provide 2520ml volume/day, 126g AA, 504g DEX(3.71mg/kg/min), and 2361 avg kcals/day. 2. TG/PALB Q /; daily wts 3. monitor for PN tolerance and adjustment needs 4. bowel regimen per surgeon post-op 5. IF GI function returns consider trickle EN as medically indicated while on vent Addendum: 06/15/21 at [address] Amended: Links added.
[2021-06-15 13:13] LABS: ALBUMIN 1.8 G/DL (3.4-5.0); ANION GAP 20 (8-16); BLOOD UREA NITROGEN 101 MG/DL (7-18); BUN/CREATININE RATIO 14.1 (5.4-32.0); CHLORIDE 107 MMOL/L (99-107); CREATININE 7.17 MG/DL (0.60-1.10); GLUCOSE 96 MG/DL (70-104); MAGNESIUM 1.4 MG/DL (1.5-2.4); PHOSPHORUS 4.8 MG/DL (2.3-4.5); POTASSIUM 3.8 MMOL/L (3.5-5.1); SODIUM 145 MMOL/L (135-145); TOTAL CARBON DIOXIDE 17.8 MMOL/L (24-32); eGFR 10 ML/MIN
[2021-06-15 13:18] LABS: CALCIUM 5.7 MG/DL (8.5-10.1)
[2021-06-15 13:46] LABS: ANION GAP 20 (8-16); BLOOD UREA NITROGEN 109 MG/DL (7-18); BUN/CREATININE RATIO 14.5 (5.4-32.0); CALCIUM 6.4 MG/DL (8.5-10.1); CHLORIDE 103 MMOL/L (99-107); CREATININE 7.54 MG/DL (0.60-1.10); GLUCOSE 118 MG/DL (70-104); MAGNESIUM 1.6 MG/DL (1.5-2.4); PHOSPHORUS 4.8 MG/DL (2.3-4.5); POTASSIUM 4.1 MMOL/L (3.5-5.1); SODIUM 143 MMOL/L (135-145); TOTAL CARBON DIOXIDE 19.6 MMOL/L (24-32); eGFR 9 ML/MIN
[2021-06-15 14:25] LABS: HEMOGLOBIN 11.3 g/dl (14.0-17.9); MEAN CORPUSCULAR VOLUME 86.6 FL (78-98); WHITE BLOOD COUNT 6.3 X10'3 (4.5-11.0)
[2021-06-15 14:27] LABS: HEMATOCRIT 33.6 % (42.0-52.0); MEAN CORPUSCULAR HEMOGLOBIN 29.1 PG (27.0-31.0); MEAN CORPUSCULAR HGB CONC 33.6 g/dL (33.0-36.5); MEAN PLATELET VOLUME 9.2 FL (7.4-10.4); PLATELET COUNT 59 X10'3 (140-440); RED BLOOD COUNT 3.88 X10'6 (4.70-6.10); RED CELL DISTRIBUTION WIDTH 14.8 % (11.5-14.5)
[2021-06-15] MEDS: calcium chloride inj. 1,000 MG in normal saline 100ml IV soln 100 ML IV PRN (14:31)
[2021-06-15 14:49] LABS: ANION GAP 18 (8-16); BLOOD UREA NITROGEN 104 MG/DL (7-18); BUN/CREATININE RATIO 14.3 (5.4-32.0); CALCIUM 6.3 MG/DL (8.5-10.1); CHLORIDE 105 MMOL/L (99-107); CREATININE 7.29 MG/DL (0.60-1.10); GLUCOSE 109 MG/DL (70-104); MAGNESIUM 1.6 MG/DL (1.5-2.4); PHOSPHORUS 4.6 MG/DL (2.3-4.5); SODIUM 143 MMOL/L (135-145); TOTAL CARBON DIOXIDE 19.9 MMOL/L (24-32); eGFR 9 ML/MIN
[2021-06-15 15:12] LABS: TOTAL CELLS COUNTED 100
[2021-06-15 15:13] LABS: NUCLEATED RED BLOOD CELLS 0 /100WBC (0-0); PLATELET ESTIMATE DECREASED
[2021-06-15 15:14] LABS: BURR CELLS 1+; TOXIC GRANULATION 2+; TOXIC VACUOLATION 1+
[2021-06-15 15:32] LABS: HIV ANTIBODY 1&2 RAPID NON-REACTIVE (Neg)
[2021-06-15 15:47] LABS: MEAN CORPUSCULAR HGB CONC 33.7 g/dL (33.0-36.5)
[2021-06-15 15:49] LABS: HEMATOCRIT 33.6 % (42.0-52.0); HEMOGLOBIN 11.3 g/dl (14.0-17.9); MEAN CORPUSCULAR HEMOGLOBIN 29.1 PG (27.0-31.0); MEAN CORPUSCULAR VOLUME 86.4 FL (78-98); PLATELET COUNT 60 X10'3 (140-440); RED BLOOD COUNT 3.89 X10'6 (4.70-6.10); RED CELL DISTRIBUTION WIDTH 14.7 % (11.5-14.5); WHITE BLOOD COUNT 6.8 X10'3 (4.5-11.0)
[2021-06-15 16:03] LABS: ALBUMIN 1.9 G/DL (3.4-5.0); ANION GAP 15 (8-16); BLOOD UREA NITROGEN 97 MG/DL (7-18); BUN/CREATININE RATIO 13.8 (5.4-32.0); CALCIUM 6.7 MG/DL (8.5-10.1); CHLORIDE 105 MMOL/L (99-107); CREATININE 7.02 MG/DL (0.60-1.10); GLUCOSE 108 MG/DL (70-104); MAGNESIUM 1.7 MG/DL (1.5-2.4); PHOSPHORUS 4.4 MG/DL (2.3-4.5); SODIUM 141 MMOL/L (135-145); TOTAL CARBON DIOXIDE 21.3 MMOL/L (24-32); eGFR 10 ML/MIN
[2021-06-15] MEDS: ZINC/COPPER/MANGANESE/SELENIUM 0.5 ML, chromic chloride inj. 5 MCG in AMINO ACIDS 5 %/D... IV SCH (16:21)
[2021-06-15] MEDS ORDERED: Dextrose 10%-water IV solution 1,000 ML IV PRN (17:00)
[2021-06-15] MEDS ORDERED: midazolam 1 mg/ML 2ml injection IV ONE (18:00)
[2021-06-15 18:55] LABS: BURR CELLS 1+; NUCLEATED RED BLOOD CELLS 2 /100WBC (0-0); PLATELET ESTIMATE DECREASED; TOTAL CELLS COUNTED 100
[2021-06-15 19:04] LABS: TOXIC GRANULATION 2+; TOXIC VACUOLATION 1+
[2021-06-15] MEDS: midazolam 100mg in NS 100ml 100 ML IV PRN (20:03)
[2021-06-15 21:35] LABS: MEAN CORPUSCULAR VOLUME 86.7 FL (78-98)
[2021-06-15 21:37] LABS: HEMATOCRIT 34.1 % (42.0-52.0); HEMOGLOBIN 11.5 g/dl (14.0-17.9); MEAN CORPUSCULAR HEMOGLOBIN 29.2 PG (27.0-31.0); MEAN CORPUSCULAR HGB CONC 33.7 g/dL (33.0-36.5); MEAN PLATELET VOLUME 8.8 FL (7.4-10.4); RED BLOOD COUNT 3.93 X10'6 (4.70-6.10); WHITE BLOOD COUNT 8.1 X10'3 (4.5-11.0)
[2021-06-15 21:56] LABS: ALBUMIN 1.8 G/DL (3.4-5.0); ANION GAP 16 (8-16); BLOOD UREA NITROGEN 78 MG/DL (7-18); BUN/CREATININE RATIO 12.5 (5.4-32.0); CHLORIDE 105 MMOL/L (99-107); CREATININE 6.23 MG/DL (0.60-1.10); GLUCOSE 108 MG/DL (70-104); PHOSPHORUS 3.6 MG/DL (2.3-4.5); POTASSIUM 4.1 MMOL/L (3.5-5.1); SODIUM 142 MMOL/L (135-145); TOTAL CARBON DIOXIDE 21.3 MMOL/L (24-32); eGFR 11 ML/MIN
[2021-06-15 21:57] LABS: PLATELET COUNT 45 X10'3 (140-440)
[2021-06-15 22:12] LABS: NUCLEATED RED BLOOD CELLS 1 /100WBC (0-0); TOTAL CELLS COUNTED 100
[2021-06-15 22:13] LABS: PLATELET ESTIMATE DECREASED
[2021-06-15 22:14] LABS: IONIZED CALCIUM SERUM 1.01 MMOL/L (1.03-1.32)
[2021-06-15 22:15] LABS: BURR CELLS 1+
[2021-06-15 22:17] LABS: TOXIC GRANULATION 1+; TOXIC VACUOLATION 1+
[2021-06-16] VITALS (40 sets, daily range): BP systolic 91–165; BP diastolic 55–82
[2021-06-16] MEDS: sodium chloride inj. 154 MEQ in Dextrose 10%-water IV solution 961.5 ML IV SCH (00:25)
[2021-06-16] MEDS: Duosol 4K/3 Ca (w/calcium) 5,000 ML HE SCH ×8 (00:35→23:32)
[2021-06-16] MEDS: dextrose 5%-1/2 normal saline 1,000 ML IV SCH (01:15)
[2021-06-16] MEDS: NORepinephrine inj. 32 MG in normal saline 250ml IV soln 218 ML IV PRN ×2 (02:29→14:26)
[2021-06-16] MEDS ORDERED: VANCOMYCIN LEVEL IV SCH (03:00)
[2021-06-16 03:34] LABS: EOSINOPHILS # (AUTO) 0.2 X10'3 (0-0.9); HEMOGLOBIN 10.9 g/dl (14.0-17.9); NEUTROPHILS # (AUTO) 6.9 X10'3 (1.8-7.7); WHITE BLOOD COUNT 7.7 X10'3 (4.5-11.0)
[2021-06-16 03:35] LABS: BASOPHILS % (AUTO) 0.1 % (0-1); EOSINOPHILS % (AUTO) 2.6 % (0-6); HEMATOCRIT 31.8 % (42.0-52.0); LYMPHOCYTES # (AUTO) 0.3 X10'3 (1.1-4.8); LYMPHOCYTES % (AUTO) 3.3 % (21-51); MEAN CORPUSCULAR HEMOGLOBIN 29.5 PG (27.0-31.0); MEAN CORPUSCULAR HGB CONC 34.1 g/dL (33.0-36.5); MEAN CORPUSCULAR VOLUME 86.4 FL (78-98); MEAN PLATELET VOLUME 10.2 FL (7.4-10.4); MONOCYTES # (AUTO) 0.3 X10'3 (0-0.9); MONOCYTES % (AUTO) 3.9 % (2-12); NEUTROPHILS % (AUTO) 90.1 % (42-75); RED BLOOD COUNT 3.68 X10'6 (4.70-6.10); RED CELL DISTRIBUTION WIDTH 14.5 % (11.5-14.5)
[2021-06-16 03:42] LABS: PLATELET COUNT 37 X10'3 (140-440)
--- NOTE | 2021-06-16 03:50 | NUR ---
CVVH stopped at 0020, unable to return blood. Restarted at 0300. Access pressure low, line needed to be flushed several times.
[2021-06-16 03:56] LABS: ALBUMIN 1.7 G/DL (3.4-5.0); ALBUMIN/GLOBULIN RATIO 0.9 (1.1-1.5); ALKALINE PHOSPHATASE 129 IU/L (46-116); ANION GAP 16 (8-16); BILIRUBIN,TOTAL 3.7 MG/DL (0.1-1.0); BLOOD UREA NITROGEN 85 MG/DL (7-18); BUN/CREATININE RATIO 13.3 (5.4-32.0); CALCIUM 6.7 MG/DL (8.5-10.1); CHLORIDE 102 MMOL/L (99-107); CREATININE 6.39 MG/DL (0.60-1.10); GLUCOSE 131 MG/DL (70-104); MAGNESIUM 1.6 MG/DL (1.5-2.4); PHOSPHORUS 3.4 MG/DL (2.3-4.5); SODIUM 140 MMOL/L (135-145); TOTAL PROTEIN 3.6 G/DL (6.4-8.2); VANCOMYCIN,RANDOM 14.2 UG/ML; eGFR 11 ML/MIN
[2021-06-16 04:01] LABS: IONIZED CALCIUM SERUM 0.98 MMOL/L (1.03-1.32)
[2021-06-16 04:02] LABS: ALANINE AMINOTRANSFERASE 1381 U/L (12-78); ASPARTATE AMINO TRANSFERASE 1354 U/L (10-37)
[2021-06-16] MEDS: calcium chloride inj. 1,000 MG in normal saline 100ml IV soln 100 ML IV PRN (04:35)
--- NOTE | 2021-06-16 07:25 | NUR ---
intraabdominal pressure 25
[2021-06-16] MEDS: sodium bicarbonate (8.4%) inj. 150 MEQ in dextrose 5%-water 1,000 ML IV SCH ×2 (07:28→18:56)
[2021-06-16] MEDS: pantoprazole 40MG/NS 100ML BAG 100 ML IV SCH (07:37)
[2021-06-16] MEDS: MVI, adult No.4 with vit. K 10 ML in dextrose 5% water 500ml 500 ML IV SCH ×2 (07:37)
[2021-06-16] MEDS: fluconazole-Diflucan 200mg/NS 100 ML IV SCH (07:37)
[2021-06-16] MEDS: piperacillin/tazo 3.375gm/50ml 50 ML IV SCH ×2 (07:37→19:15)
[2021-06-16] MEDS: K and/or MAG REPLACEMENT MC SCH ×2 (08:00→20:00)
[2021-06-16] MEDS: FENTANYL-0.9 % NACL/PF 100 ML IV PRN (08:45)
[2021-06-16 09:10] LABS: HEMOGLOBIN 10.8 g/dl (14.0-17.9)
[2021-06-16 09:12] LABS: HEMATOCRIT 32.2 % (42.0-52.0); MEAN CORPUSCULAR HGB CONC 33.6 g/dL (33.0-36.5); MEAN CORPUSCULAR VOLUME 86.3 FL (78-98); RED BLOOD COUNT 3.73 X10'6 (4.70-6.10); RED CELL DISTRIBUTION WIDTH 14.7 % (11.5-14.5); WHITE BLOOD COUNT 7.6 X10'3 (4.5-11.0)
--- NOTE | 2021-06-16 09:37 | NUR ---
first pack of platelets infusing
[2021-06-16 09:39] LABS: PLATELET COUNT 26 X10'3 (140-440)
[2021-06-16 09:53] LABS: ALBUMIN 1.7 G/DL (3.4-5.0); ANION GAP 12 (8-16); BLOOD UREA NITROGEN 71 MG/DL (7-18); BUN/CREATININE RATIO 13.2 (5.4-32.0); CHLORIDE 103 MMOL/L (99-107); CREATININE 5.37 MG/DL (0.60-1.10); GLUCOSE 218 MG/DL (70-104); MAGNESIUM 1.7 MG/DL (1.5-2.4); POTASSIUM 3.9 MMOL/L (3.5-5.1); SODIUM 139 MMOL/L (135-145); TOTAL CARBON DIOXIDE 24.1 MMOL/L (24-32); eGFR 13 ML/MIN
[2021-06-16 10:03] LABS: PLATELET ESTIMATE DECREASED; TOTAL CELLS COUNTED 100
[2021-06-16 10:04] LABS: POLYCHROMASIA FEW
[2021-06-16 10:06] LABS: BURR CELLS 1+
[2021-06-16 10:07] LABS: SCHISTOCYTES FEW
[2021-06-16] MEDS ORDERED: MESSAGE TO PHARMACY PO ONE (11:00)
[2021-06-16] MEDS: hydrocortisone sod succ/PF 100mg/2ml inj. IV SCH ×2 (11:28→19:15)
[2021-06-16] MEDS: ZINC/COPPER/MANGANESE/SELENIUM 0.5 ML, chromic chloride inj. 5 MCG in AMINO ACIDS 5 %/D... IV SCH ×2 (12:06→21:16)
--- NOTE | 2021-06-16 13:54 | NUR ---
bis applied to pt. level is 84
[2021-06-16 14:57] LABS: BASOPHILS % (AUTO) 0.2 % (0-1); EOSINOPHILS # (AUTO) 0.1 X10'3 (0-0.9); EOSINOPHILS % (AUTO) 1.6 % (0-6); HEMATOCRIT 32.3 % (42.0-52.0); HEMOGLOBIN 10.9 g/dl (14.0-17.9); LYMPHOCYTES # (AUTO) 0.2 X10'3 (1.1-4.8); LYMPHOCYTES % (AUTO) 1.8 % (21-51); MEAN CORPUSCULAR HEMOGLOBIN 29.3 PG (27.0-31.0); MEAN CORPUSCULAR HGB CONC 33.8 g/dL (33.0-36.5); MEAN CORPUSCULAR VOLUME 86.6 FL (78-98); MEAN PLATELET VOLUME 8.2 FL (7.4-10.4); MONOCYTES # (AUTO) 0.4 X10'3 (0-0.9); MONOCYTES % (AUTO) 4.2 % (2-12); NEUTROPHILS # (AUTO) 8.4 X10'3 (1.8-7.7); NEUTROPHILS % (AUTO) 92.2 % (42-75); PLATELET COUNT 68 X10'3 (140-440); RED BLOOD COUNT 3.73 X10'6 (4.70-6.10); RED CELL DISTRIBUTION WIDTH 15.1 % (11.5-14.5); WHITE BLOOD COUNT 9.1 X10'3 (4.5-11.0)
[2021-06-16 15:25] LABS: ALBUMIN 1.9 G/DL (3.4-5.0); ANION GAP 11 (8-16); BLOOD UREA NITROGEN 65 MG/DL (7-18); BUN/CREATININE RATIO 13.3 (5.4-32.0); CHLORIDE 101 MMOL/L (99-107); CREATININE 4.87 MG/DL (0.60-1.10); GLUCOSE 228 MG/DL (70-104); MAGNESIUM 1.8 MG/DL (1.5-2.4); PHOSPHORUS 2.8 MG/DL (2.3-4.5); SODIUM 137 MMOL/L (135-145); TOTAL CARBON DIOXIDE 25.4 MMOL/L (24-32); eGFR 15 ML/MIN
--- NOTE | 2021-06-16 18:15 | NUR ---
Patient in room ICU 2044. I have received report from Vanessa Fonseca RN and had the opportunity to ask questions and assume patient care.
--- NOTE | 2021-06-16 18:30 | NUR ---
Patient in room ICU 2044. I have received report and assuming care from mariely Mendez with abhi Isidro RN and had the opportunity to ask questions and assume patient care.
[2021-06-16] MEDS: insulin regular, human U-100 3ml vial - multi-dose SQ SCH (21:12)
[2021-06-16] MEDS: insulin glargine (Lantus) pen - multi-dose SQ SCH (21:15)
[2021-06-16 21:36] LABS: ALBUMIN 1.7 G/DL (3.4-5.0); ANION GAP 9 (8-16); BLOOD UREA NITROGEN 60 MG/DL (7-18); BUN/CREATININE RATIO 13.2 (5.4-32.0); CHLORIDE 102 MMOL/L (99-107); CREATININE 4.53 MG/DL (0.60-1.10); GLUCOSE 288 MG/DL (70-104); MAGNESIUM 1.7 MG/DL (1.5-2.4); PHOSPHORUS 2.4 MG/DL (2.3-4.5); POTASSIUM 4.3 MMOL/L (3.5-5.1); SODIUM 137 MMOL/L (135-145); eGFR 16 ML/MIN
[2021-06-17] VITALS (34 sets, daily range): BP systolic 88–149; BP diastolic 57–89
[2021-06-17] MEDS: piperacillin/tazo 3.375gm/50ml 50 ML IV SCH ×4 (01:16→23:53)
[2021-06-17] MEDS: FENTANYL-0.9 % NACL/PF 100 ML IV PRN ×2 (01:17→16:19)
--- NOTE | 2021-06-17 01:26 | NUR ---
Patient tolerating CVVH. Weaning Levophed as tolerated. Will continue to monitor.
[2021-06-17] MEDS: Duosol 4K/3 Ca (w/calcium) 5,000 ML HE SCH ×9 (01:35→18:15)
[2021-06-17 02:54] LABS: ABG BASE EXCESS 5.5 mmol/L (-2.0-2.0); ABG HCO3 28.5 mmol/L (22.0-26.0); ABG OXYGEN SATURATION 97.1 % (94-97); ABG PCO2 (T) 35.1 mmHg (35.0-48.0); ABG PO2 (T) 87.8 mmHg (75.0-100.0); FCOHb 0.7 % (0.0-3.9); FMetHb 0.3 % (0.0-1.5); FO2Hb 96.1 % (94-97); PATIENT TEMPERATURE 36.7; PEEP 5 cm H2O; RESPIRATORY RATE 26 b/min; TIDAL VOLUME 550 mL
[2021-06-17 03:05] LABS: BASOPHILS % (AUTO) 0.1 % (0-1); EOSINOPHILS % (AUTO) 0.1 % (0-6); LYMPHOCYTES # (AUTO) 0.1 X10'3 (1.1-4.8); LYMPHOCYTES % (AUTO) 1.1 % (21-51); MEAN CORPUSCULAR HGB CONC 33.6 g/dL (33.0-36.5)
[2021-06-17] MEDS: hydrocortisone sod succ/PF 100mg/2ml inj. IV SCH ×3 (03:05→19:24)
[2021-06-17 03:06] LABS: HEMATOCRIT 31.6 % (42.0-52.0); HEMOGLOBIN 10.6 g/dl (14.0-17.9); MEAN CORPUSCULAR HEMOGLOBIN 29.1 PG (27.0-31.0); MEAN CORPUSCULAR VOLUME 86.6 FL (78-98); MEAN PLATELET VOLUME 8.9 FL (7.4-10.4); MONOCYTES # (AUTO) 0.5 X10'3 (0-0.9); NEUTROPHILS # (AUTO) 10.8 X10'3 (1.8-7.7); NEUTROPHILS % (AUTO) 94.7 % (42-75); RED BLOOD COUNT 3.65 X10'6 (4.70-6.10); WHITE BLOOD COUNT 11.4 X10'3 (4.5-11.0)
[2021-06-17] MEDS: insulin regular, human U-100 3ml vial - multi-dose SQ SCH ×4 (03:13→20:33)
[2021-06-17 03:15] LABS: PLATELET COUNT 40 X10'3 (140-440)
--- NOTE | 2021-06-17 03:19 | NUR ---
Critical platelet count of [address] Gar. No new orders at this time. shells inspector at bedside restarting CVVH.
[2021-06-17 03:38] LABS: ALBUMIN 1.7 G/DL (3.4-5.0); ANION GAP 9 (8-16); ANISOCYTOSIS 1+; BLOOD UREA NITROGEN 55 MG/DL (7-18); BUN/CREATININE RATIO 13.1 (5.4-32.0); CHLORIDE 101 MMOL/L (99-107); CREATININE 4.21 MG/DL (0.60-1.10); GLUCOSE 249 MG/DL (70-104); MAGNESIUM 1.6 MG/DL (1.5-2.4); NUCLEATED RED BLOOD CELLS 2 /100WBC (0-0); PHOSPHORUS 2.6 MG/DL (2.3-4.5); PLATELET ESTIMATE DECREASED; POTASSIUM 4.3 MMOL/L (3.5-5.1); SODIUM 136 MMOL/L (135-145); TOTAL CARBON DIOXIDE 26.2 MMOL/L (24-32); TOTAL CELLS COUNTED 100; eGFR 18 ML/MIN
[2021-06-17 03:39] LABS: BURR CELLS FEW; POLYCHROMASIA FEW; TEAR DROP CELLS FEW
--- NOTE | 2021-06-17 03:50 | NUR ---
CVVH restarted. Titrating Levophed down as tolerated.
--- NOTE | 2021-06-17 04:43 | NUR ---
Dr. Medina updated on patient's status and current labs including ABG. Bicarb already stopped. Orders received. Patient furrows brow, chews on ETT tube, not following commands. Versed stopped per MD. CVVH running without issue at this time.
[2021-06-17] MEDS: dexmedetomidine/D5W 100mL 100 ML IV SCH ×3 (05:50→22:38)
--- NOTE | 2021-06-17 06:12 | NUR ---
Problems reprioritized. Patient report given, questions answered & plan of care reviewed with Vanessa HARLEY. [place] documentation: I have reviewed and agree with all interventions, assessments performed and documented by Sanna HARLEY. [place] Medication Administration: For this medication-pass time frame, all medication were reviewed, dispensed, administered and documented per hospital policy by Sanna HARLEY.
[2021-06-17] MEDS: ZINC/COPPER/MANGANESE/SELENIUM 0.5 ML, chromic chloride inj. 5 MCG in AMINO ACIDS 5 %/D... IV SCH ×2 (06:48→15:48)
[2021-06-17] MEDS: fluconazole-Diflucan 200mg/NS 100 ML IV SCH (07:25)
[2021-06-17] MEDS: pantoprazole 40MG/NS 100ML BAG 100 ML IV SCH (07:25)
--- NOTE | 2021-06-17 07:50 | NUR ---
intraabdominal pressure is 24
[2021-06-17] MEDS: K and/or MAG REPLACEMENT MC SCH ×2 (08:00→20:00)
[2021-06-17 09:22] LABS: EOSINOPHILS % (AUTO) 0.1 % (0-6); HEMOGLOBIN 10.5 g/dl (14.0-17.9); LYMPHOCYTES # (AUTO) 0.2 X10'3 (1.1-4.8)
[2021-06-17 09:23] LABS: BASOPHILS % (AUTO) 0.2 % (0-1); HEMATOCRIT 31.1 % (42.0-52.0); LYMPHOCYTES % (AUTO) 1.3 % (21-51); MEAN CORPUSCULAR HEMOGLOBIN 29.6 PG (27.0-31.0); MEAN CORPUSCULAR HGB CONC 33.9 g/dL (33.0-36.5); MEAN CORPUSCULAR VOLUME 87.3 FL (78-98); MONOCYTES # (AUTO) 0.5 X10'3 (0-0.9); MONOCYTES % (AUTO) 3.6 % (2-12); NEUTROPHILS # (AUTO) 12.7 X10'3 (1.8-7.7); NEUTROPHILS % (AUTO) 94.8 % (42-75); RED BLOOD COUNT 3.56 X10'6 (4.70-6.10); RED CELL DISTRIBUTION WIDTH 14.9 % (11.5-14.5); WHITE BLOOD COUNT 13.4 X10'3 (4.5-11.0)
[2021-06-17 09:30] LABS: PLATELET COUNT 37 X10'3 (140-440)
[2021-06-17 09:33] LABS: ALBUMIN 1.7 G/DL (3.4-5.0); ANION GAP 4 (8-16); BLOOD UREA NITROGEN 52 MG/DL (7-18); BUN/CREATININE RATIO 13.3 (5.4-32.0); CALCIUM 7.5 MG/DL (8.5-10.1); CHLORIDE 104 MMOL/L (99-107); GLUCOSE 212 MG/DL (70-104); PHOSPHORUS 2.6 MG/DL (2.3-4.5); POTASSIUM 4.4 MMOL/L (3.5-5.1); SODIUM 136 MMOL/L (135-145); eGFR 19 ML/MIN
[2021-06-17 09:50] LABS: NUCLEATED RED BLOOD CELLS 2 /100WBC (0-0); TOTAL CELLS COUNTED 100
[2021-06-17 09:51] LABS: PLATELET ESTIMATE DECREASED; SCHISTOCYTES FEW
--- NOTE | 2021-06-17 09:55 | NUR ---
Reassessment: Pt remains intubated and on CVVH per EMR. NGT in place for LIS, documented with 1085 mL output 06/16 per I&O. Pt continues receiving TPN for nutrition and appears to be tolerating with no s/s refeeding. TPN unable to fully meet estimated protein needs without excessive fluids on CVVH given current formulary and shortage on custom PN materials. LBM 06/12. Will continue to follow closely. Recommendations: 1. Continuous TPN per talent development coordinator via central access using 2:1 Clinimix non-E 09/22 at 105 ml/hr w/ separate 250ml 20% intralipids to run for 12 hrs on /Sat at 20.83 ml/hr. To provide 2520 ml volume/day, 126 g AA, 504 g dext (3.67 mg/kg/min dext load), and 2361 avg kcal/day. 2. TG/PALB q / 3. Daily scaled wts 4. Monitor for PN tolerance and adjustment needs 5. Bowel regimen per surgeon post-op 6. IF GI function returns consider trickle EN as medically indicated while on vent Addendum: 06/17/21 at [address] Amended: Links added.
[2021-06-17 10:07] LABS: ABG BASE EXCESS 2.7 mmol/L (-2.0-2.0); ABG HCO3 26.6 mmol/L (22.0-26.0); ABG OXYGEN SATURATION 95.9 % (94-97); ABG PO2 (T) 80.3 mmHg (75.0-100.0); FCOHb 0.7 % (0.0-3.9); FMetHb 0.3 % (0.0-1.5); FO2Hb 94.9 % (94-97); PATIENT TEMPERATURE 36.2; PEEP 5 cm H2O; TOTAL HEMOGLOBIN 11.1 G/dl (14.0-18.0)
--- NOTE | 2021-06-17 10:35 | NUR ---
levophed restarted at 0.05 mcg pt's bp 88/54
[2021-06-17 15:01] LABS: ALANINE AMINOTRANSFERASE 897 U/L (12-78); ALBUMIN/GLOBULIN RATIO 0.7 (1.1-1.5); ALKALINE PHOSPHATASE 145 IU/L (46-116); ASPARTATE AMINO TRANSFERASE 552 U/L (10-37); BILIRUBIN,TOTAL 3.4 MG/DL (0.1-1.0); TOTAL PROTEIN 4.2 G/DL (6.4-8.2)
[2021-06-17 15:10] LABS: EOSINOPHILS % (AUTO) 0.1 % (0-6); HEMOGLOBIN 9.9 g/dl (14.0-17.9); MONOCYTES # (AUTO) 0.8 X10'3 (0-0.9)
[2021-06-17 15:12] LABS: BASOPHILS % (AUTO) 0 % (0-1); HEMATOCRIT 29.9 % (42.0-52.0); LYMPHOCYTES # (AUTO) 0.3 X10'3 (1.1-4.8); LYMPHOCYTES % (AUTO) 2.1 % (21-51); MEAN CORPUSCULAR HGB CONC 33.1 g/dL (33.0-36.5); MEAN CORPUSCULAR VOLUME 87.5 FL (78-98); MEAN PLATELET VOLUME 9.3 FL (7.4-10.4); NEUTROPHILS # (AUTO) 14.4 X10'3 (1.8-7.7); NEUTROPHILS % (AUTO) 92.8 % (42-75); RED BLOOD COUNT 3.42 X10'6 (4.70-6.10); RED CELL DISTRIBUTION WIDTH 15.2 % (11.5-14.5); WHITE BLOOD COUNT 15.5 X10'3 (4.5-11.0)
[2021-06-17 15:14] LABS: PLATELET COUNT 30 X10'3 (140-440)
[2021-06-17 15:36] LABS: IONIZED CALCIUM 1.2 MMOL/L (1.10-1.30); IONIZED CALCIUM CVVH 1.19 MMOL/L
[2021-06-17 15:44] LABS: ALBUMIN 1.7 G/DL (3.4-5.0); ANION GAP 6 (8-16); BLOOD UREA NITROGEN 53 MG/DL (7-18); BUN/CREATININE RATIO 14.3 (5.4-32.0); CHLORIDE 103 MMOL/L (99-107); CREATININE 3.71 MG/DL (0.60-1.10); GLUCOSE 209 MG/DL (70-104); MAGNESIUM 2.5 MG/DL (1.5-2.4); PHOSPHORUS 2.1 MG/DL (2.3-4.5); POTASSIUM 4.3 MMOL/L (3.5-5.1); SODIUM 136 MMOL/L (135-145); TOTAL CARBON DIOXIDE 27.1 MMOL/L (24-32); eGFR 21 ML/MIN
--- NOTE | 2021-06-17 16:10 | NUR ---
informed Dr. Arias of platelet value
--- NOTE | 2021-06-17 18:21 | NUR ---
Patient in room ICU 2044. I have received report from CRICKET Mendez and had the opportunity to ask questions and assume patient care. Patient is intubated on CPAP on the ventilator. CVVH in progress.
[2021-06-17 20:20] LABS: HBSAG SCREEN Negative (Negative); HEP A AB, IGM Negative (Negative); HEPATITIS C ANTIBODY <0.1 s/co ratio (0.0-0.9)
[2021-06-17] MEDS: insulin glargine (Lantus) pen - multi-dose SQ SCH (20:35)
[2021-06-17 21:59] LABS: EOSINOPHILS % (AUTO) 0.1 % (0-6); RED CELL DISTRIBUTION WIDTH 15.1 % (11.5-14.5); WHITE BLOOD COUNT 15.8 X10'3 (4.5-11.0)
[2021-06-17 22:01] LABS: BASOPHILS % (AUTO) 0.2 % (0-1); HEMATOCRIT 30.6 % (42.0-52.0); HEMOGLOBIN 10.2 g/dl (14.0-17.9); LYMPHOCYTES # (AUTO) 0.4 X10'3 (1.1-4.8); LYMPHOCYTES % (AUTO) 2.7 % (21-51); MEAN CORPUSCULAR HEMOGLOBIN 29.1 PG (27.0-31.0); MEAN CORPUSCULAR HGB CONC 33.2 g/dL (33.0-36.5); MEAN CORPUSCULAR VOLUME 87.5 FL (78-98); MEAN PLATELET VOLUME 9.7 FL (7.4-10.4); MONOCYTES # (AUTO) 0.8 X10'3 (0-0.9); MONOCYTES % (AUTO) 4.8 % (2-12); NEUTROPHILS # (AUTO) 14.6 X10'3 (1.8-7.7); NEUTROPHILS % (AUTO) 92.2 % (42-75); RED BLOOD COUNT 3.49 X10'6 (4.70-6.10)
[2021-06-17 22:06] LABS: PLATELET COUNT 29 X10'3 (140-440)
--- NOTE | 2021-06-17 22:26 | NUR ---
Dr. Gibson called Re: Platelet count 29. Reviewed patients current condition. No new orders at this time.
--- NOTE | 2021-06-17 22:40 | NUR ---
Patient became agitated with bed bath, cleaning of his face with a washcloth. Patient opened eyes spontaneously, started moving his head side to side, patient attempting to move legs, unable to orient patient, patient not following direction. Facial grimace noted, Fentanyl bolus administered per order. Patient started on Precedex as per order.
[2021-06-17 22:45] LABS: ALBUMIN 1.8 G/DL (3.4-5.0); ANION GAP 6 (8-16); BLOOD UREA NITROGEN 53 MG/DL (7-18); BUN/CREATININE RATIO 14.8 (5.4-32.0); CALCIUM 7.8 MG/DL (8.5-10.1); CHLORIDE 101 MMOL/L (99-107); CREATININE 3.57 MG/DL (0.60-1.10); GLUCOSE 201 MG/DL (70-104); MAGNESIUM 2.2 MG/DL (1.5-2.4); POTASSIUM 4.4 MMOL/L (3.5-5.1); SODIUM 134 MMOL/L (135-145); TOTAL CARBON DIOXIDE 26.9 MMOL/L (24-32); eGFR 22 ML/MIN
[2021-06-17] MEDS ORDERED: sodium phosphate inj. 30 MMOL in dextrose 5%-water 250 ML IV PRN (23:08)
[2021-06-18] VITALS (34 sets, daily range): BP systolic 87–128; BP diastolic 51–73
[2021-06-18] MEDS: Duosol 4K/3 Ca (w/calcium) 5,000 ML HE SCH ×11 (00:42→22:29)
[2021-06-18] MEDS: ZINC/COPPER/MANGANESE/SELENIUM 0.5 ML, chromic chloride inj. 5 MCG in AMINO ACIDS 5 %/D... IV SCH ×3 (01:36→19:36)
[2021-06-18] MEDS: insulin regular, human U-100 3ml vial - multi-dose SQ SCH ×4 (03:17→20:41)
[2021-06-18 03:22] LABS: EOSINOPHILS % (AUTO) 0.1 % (0-6); HEMOGLOBIN 9.6 g/dl (14.0-17.9); LYMPHOCYTES # (AUTO) 0.4 X10'3 (1.1-4.8); LYMPHOCYTES % (AUTO) 2.5 % (21-51); MONOCYTES # (AUTO) 0.9 X10'3 (0-0.9); WHITE BLOOD COUNT 14.7 X10'3 (4.5-11.0)
[2021-06-18 03:24] LABS: BASOPHILS % (AUTO) 0 % (0-1); HEMATOCRIT 28.7 % (42.0-52.0); MEAN CORPUSCULAR HEMOGLOBIN 29.3 PG (27.0-31.0); MEAN CORPUSCULAR HGB CONC 33.4 g/dL (33.0-36.5); MEAN CORPUSCULAR VOLUME 87.6 FL (78-98); MEAN PLATELET VOLUME 10.3 FL (7.4-10.4); MONOCYTES % (AUTO) 6.1 % (2-12); NEUTROPHILS # (AUTO) 13.4 X10'3 (1.8-7.7); NEUTROPHILS % (AUTO) 91.3 % (42-75); RED BLOOD COUNT 3.28 X10'6 (4.70-6.10); RED CELL DISTRIBUTION WIDTH 14.9 % (11.5-14.5)
[2021-06-18] MEDS: hydrocortisone sod succ/PF 100mg/2ml inj. IV SCH ×3 (03:24→18:51)
[2021-06-18 03:28] LABS: PLATELET COUNT 31 X10'3 (140-440)
[2021-06-18 03:43] LABS: ABG BASE EXCESS 3.9 mmol/L (-2.0-2.0); ABG HCO3 25.7 mmol/L (22.0-26.0); ABG OXYGEN SATURATION 97.8 % (94-97); ABG PO2 (T) 87.9 mmHg (75.0-100.0); FCOHb 0.5 % (0.0-3.9); FMetHb 0.3 % (0.0-1.5); PEEP 5 cm H2O; RESPIRATORY RATE 26 b/min; TIDAL VOLUME 550 mL; TOTAL HEMOGLOBIN 10.3 G/dl (14.0-18.0)
[2021-06-18 04:10] LABS: ALANINE AMINOTRANSFERASE 669 U/L (12-78); ALBUMIN 1.7 G/DL (3.4-5.0); ALBUMIN/GLOBULIN RATIO 0.7 (1.1-1.5); ALKALINE PHOSPHATASE 138 IU/L (46-116); ANION GAP 10 (8-16); ASPARTATE AMINO TRANSFERASE 331 U/L (10-37); BILIRUBIN,DIRECT 2.9 MG/DL (0-0.3); BILIRUBIN,TOTAL 3.6 MG/DL (0.1-1.0); BLOOD UREA NITROGEN 52 MG/DL (7-18); BUN/CREATININE RATIO 15.2 (5.4-32.0); CHLORIDE 101 MMOL/L (99-107); CREATININE 3.43 MG/DL (0.60-1.10); GLUCOSE 245 MG/DL (70-104); MAGNESIUM 2.1 MG/DL (1.5-2.4); PHOSPHORUS 1.9 MG/DL (2.3-4.5); POTASSIUM 4.2 MMOL/L (3.5-5.1); SODIUM 135 MMOL/L (135-145); TOTAL CARBON DIOXIDE 24.1 MMOL/L (24-32); TOTAL PROTEIN 4.1 G/DL (6.4-8.2); eGFR 23 ML/MIN
--- NOTE | 2021-06-18 04:31 | NUR ---
Patient with increased agitation with care activities. Patient Vigorously shaking his head from side to side, attempting to lift head off pillow, bend legs, will not follow commands. Patient will not respond to orientation questions. Increase in sedation required to maintain patient safety.
--- NOTE | 2021-06-18 05:05 | NUR ---
Rounds with Dr. Matthews. Current ABG, Labs reviewed. Adjustments to rate on ventilator adjusted to 16. MD to place order for HIT panel. Addressed patients neuro status and agitation when awake. Per MD continue to increase Precedex. No other orders at this time.
[2021-06-18] MEDS: dexmedetomidine/D5W 100mL 100 ML IV SCH ×5 (05:29→23:03)
[2021-06-18] MEDS: FENTANYL-0.9 % NACL/PF 100 ML IV PRN ×4 (06:04→21:47)
--- NOTE | 2021-06-18 06:32 | NUR ---
Problems reprioritized. Patient report given, questions answered & plan of care reviewed with CRICKET Vergara.
[2021-06-18] MEDS: pantoprazole 40MG/NS 100ML BAG 100 ML IV SCH (07:22)
[2021-06-18] MEDS: K and/or MAG REPLACEMENT MC SCH ×2 (07:24→20:00)
[2021-06-18] MEDS: fluconazole-Diflucan 200mg/NS 100 ML IV SCH (07:24)
[2021-06-18] MEDS: piperacillin/tazo 3.375gm/50ml 50 ML IV SCH ×2 (07:42→15:43)
--- NOTE | 2021-06-18 07:49 | NUR ---
Maximo consult: Noted maximo score 11. Pt w/ abd surgical wounds from multiple exploratory laparotomies, though no other open wounds per WOC Addendum: 06/18/21 at [address] Amended: Links added.
[2021-06-18 09:15] LABS: BASOPHILS % (AUTO) 0.1 % (0-1); HEMOGLOBIN 9.5 g/dl (14.0-17.9); LYMPHOCYTES # (AUTO) 0.4 X10'3 (1.1-4.8); LYMPHOCYTES % (AUTO) 2.8 % (21-51); MEAN CORPUSCULAR HGB CONC 33.1 g/dL (33.0-36.5); RED CELL DISTRIBUTION WIDTH 15.4 % (11.5-14.5); WHITE BLOOD COUNT 15.1 X10'3 (4.5-11.0)
[2021-06-18 09:16] LABS: ALBUMIN 1.7 G/DL (3.4-5.0); ANION GAP 8 (8-16); BLOOD UREA NITROGEN 53 MG/DL (7-18); BUN/CREATININE RATIO 15.9 (5.4-32.0); CHLORIDE 103 MMOL/L (99-107); CREATININE 3.33 MG/DL (0.60-1.10); GLUCOSE 229 MG/DL (70-104); POTASSIUM 4.3 MMOL/L (3.5-5.1); SODIUM 136 MMOL/L (135-145); TOTAL CARBON DIOXIDE 24.8 MMOL/L (24-32); eGFR 23 ML/MIN
[2021-06-18 09:18] LABS: EOSINOPHILS % (AUTO) 0.2 % (0-6); HEMATOCRIT 28.8 % (42.0-52.0); MEAN CORPUSCULAR VOLUME 87.8 FL (78-98); MEAN PLATELET VOLUME 11.2 FL (7.4-10.4); MONOCYTES # (AUTO) 0.8 X10'3 (0-0.9); MONOCYTES % (AUTO) 5.1 % (2-12); NEUTROPHILS # (AUTO) 13.8 X10'3 (1.8-7.7); NEUTROPHILS % (AUTO) 91.8 % (42-75); RED BLOOD COUNT 3.29 X10'6 (4.70-6.10)
[2021-06-18 09:20] LABS: PLATELET COUNT 39 X10'3 (140-440)
[2021-06-18] MEDS: mineral oil/petrolatum ophthal oint EACHEYE PRN ×2 (09:52→20:42)
[2021-06-18 11:24] LABS: NUCLEATED RED BLOOD CELLS 4 /100WBC (0-0); TOTAL CELLS COUNTED 100
[2021-06-18 11:27] LABS: PLATELET ESTIMATE DECREASED
[2021-06-18 11:28] LABS: BURR CELLS FEW; ELLIPTOCYTES FEW; POLYCHROMASIA 1+; SCHISTOCYTES FEW; TARGET CELLS FEW; TEAR DROP CELLS FEW
--- NOTE | 2021-06-18 11:45 | NUR ---
Dr. Arias saw pt. earlier this shift. Notified that pt. wakes up but thrashes about and does not follow commands. Aware of decreased need for Levophed. Dr. Fonseca just in to see pt. Updated on pt. status.
--- NOTE | 2021-06-18 14:30 | NUR ---
CVVH down at 1400. operations and maintenance technican HD RN called and present now to restart. Large clots noted in filter. Dr. Arias aware.
--- NOTE | 2021-06-18 14:36 | NUR ---
at bedside. Updated on plan of care/pt. status.
--- NOTE | 2021-06-18 14:57 | NUR ---
Pt. on spont. from [id number]. RR 7 when pt. was put back on A/C PRVC.
[2021-06-18 15:15] LABS: BASOPHILS % (AUTO) 0.1 % (0-1); LYMPHOCYTES % (AUTO) 4.1 % (21-51)
[2021-06-18 15:16] LABS: EOSINOPHILS % (AUTO) 0.1 % (0-6); HEMOGLOBIN 9.2 g/dl (14.0-17.9); LYMPHOCYTES # (AUTO) 0.6 X10'3 (1.1-4.8); MEAN CORPUSCULAR HEMOGLOBIN 29.1 PG (27.0-31.0); MEAN CORPUSCULAR VOLUME 88.2 FL (78-98); MEAN PLATELET VOLUME 11.6 FL (7.4-10.4); MONOCYTES # (AUTO) 0.9 X10'3 (0-0.9); NEUTROPHILS # (AUTO) 13.6 X10'3 (1.8-7.7); NEUTROPHILS % (AUTO) 89.7 % (42-75); RED BLOOD COUNT 3.17 X10'6 (4.70-6.10); RED CELL DISTRIBUTION WIDTH 15.3 % (11.5-14.5); WHITE BLOOD COUNT 15.2 X10'3 (4.5-11.0)
[2021-06-18] MEDS: NORepinephrine inj. 32 MG in normal saline 250ml IV soln 218 ML IV PRN (15:18)
[2021-06-18 15:19] LABS: PLATELET COUNT 41 X10'3 (140-440)
[2021-06-18 15:20] LABS: ALBUMIN 1.7 G/DL (3.4-5.0); ANION GAP 12 (8-16); BLOOD UREA NITROGEN 52 MG/DL (7-18); BUN/CREATININE RATIO 15.2 (5.4-32.0); CHLORIDE 104 MMOL/L (99-107); CREATININE 3.41 MG/DL (0.60-1.10); GLUCOSE 174 MG/DL (70-104); PHOSPHORUS 3.1 MG/DL (2.3-4.5); POTASSIUM 4.4 MMOL/L (3.5-5.1); SODIUM 136 MMOL/L (135-145); TOTAL CARBON DIOXIDE 19.9 MMOL/L (24-32); eGFR 23 ML/MIN
--- NOTE | 2021-06-18 18:12 | NUR ---
Problems reprioritized. Patient report given, questions answered & plan of care reviewed with Belkis HARLEY.
--- NOTE | 2021-06-18 18:15 | NUR ---
Patient in room ICU 2044. I have received report from CRICKET Vergara and had the opportunity to ask questions and assume patient care. Patient is intubated and sedated on ventilator A/C PRVC, FiO2 30%, rate of 16, Tidal volume 596, PEEP 5. CVVH in progress. Normal sinus on the monitor, Arterial line with good waveform present MAP 71 with Levophed infusing.
[2021-06-18] MEDS: insulin glargine (Lantus) pen - multi-dose SQ SCH (20:42)
[2021-06-18 21:06] LABS: BASOPHILS % (AUTO) 0.1 % (0-1); HEMOGLOBIN 9.2 g/dl (14.0-17.9)
[2021-06-18 21:07] LABS: EOSINOPHILS % (AUTO) 0 % (0-6); LYMPHOCYTES # (AUTO) 0.8 X10'3 (1.1-4.8); LYMPHOCYTES % (AUTO) 4.7 % (21-51); MEAN CORPUSCULAR HGB CONC 32.9 g/dL (33.0-36.5); MEAN CORPUSCULAR VOLUME 88.1 FL (78-98); MEAN PLATELET VOLUME 10.8 FL (7.4-10.4); MONOCYTES % (AUTO) 5.7 % (2-12); NEUTROPHILS % (AUTO) 89.5 % (42-75); RED BLOOD COUNT 3.18 X10'6 (4.70-6.10); RED CELL DISTRIBUTION WIDTH 15.7 % (11.5-14.5); WHITE BLOOD COUNT 16.7 X10'3 (4.5-11.0)
[2021-06-18 21:10] LABS: PLATELET COUNT 46 X10'3 (140-440)
[2021-06-18 21:14] LABS: ALBUMIN 1.8 G/DL (3.4-5.0); ANION GAP 7 (8-16); BLOOD UREA NITROGEN 53 MG/DL (7-18); BUN/CREATININE RATIO 16.1 (5.4-32.0); CHLORIDE 103 MMOL/L (99-107); GLUCOSE 177 MG/DL (70-104); MAGNESIUM 1.9 MG/DL (1.5-2.4); PHOSPHORUS 2.5 MG/DL (2.3-4.5); POTASSIUM 4.5 MMOL/L (3.5-5.1); SODIUM 134 MMOL/L (135-145); TOTAL CARBON DIOXIDE 24.4 MMOL/L (24-32); eGFR 24 ML/MIN
--- NOTE | 2021-06-18 21:51 | NUR ---
Patient wakes spontaneously and with patient care activities. When awake will vigorously shake his head side to side, thrash around in bed, attempt to sit up. Patient did nod his head once to "Do you know you are in the hospital?" question. Patient does not follow commands to squeeze hands or blink or move on command. Patient moves all extremities spontaneously. Continued reorientation to patients surroundings and events. Patient requires increase in sedation to maintain safety while CVVH is in progress and while intubated. Patient is in view of RN with restraints in use.
[2021-06-19] VITALS (29 sets, daily range): BP systolic 90–187; BP diastolic 50–93
[2021-06-19] MEDS: Duosol 4K/3 Ca (w/calcium) 5,000 ML HE SCH ×5 (00:47→06:23)
[2021-06-19] MEDS: FENTANYL-0.9 % NACL/PF 100 ML IV PRN ×3 (01:19→08:24)
--- NOTE | 2021-06-19 02:07 | NUR ---
Dr. Rush called for additional sedation orders. aware of Fentanyl boluses to sedate patient. Order for Propofol IV titrate per policy and order. To be given in addition to Precedex and Fentanyl.
[2021-06-19] MEDS: propofol 1000mg/100ml bottle 100 ML IV SCH ×2 (02:28→09:19)
[2021-06-19] MEDS: dexmedetomidine/D5W 100mL 100 ML IV SCH ×2 (02:29→05:49)
--- NOTE | 2021-06-19 02:54 | NUR ---
0144: Patient awoke suddenly, attempting to sitting up in bed, pulling on restraints, not following commands. 4 nurses needed to restrain patient while medications were titrated and boluses administered. Patient required large amount of Fentanyl to sedated him. Levophed was titrated down during event secondary to patient being hypertensive. Once patient seated and safe, all line were assessed and remained patent. Endotracheal tube remained patent, no issues. Abdominal surgical incision remained clean, dry and intact. Abdomen is distended and soft to palpation. Dr. Rush called to update on patients condition. MD made aware of amount of Fentanyl that was administered as a bolus. ( see IV flow sheet for total). MD has no issues with amount administered. Oder for Propofol per titration protocol received from MD. MD wants propofol administered in addition to Fentanyl and Precedex.
[2021-06-19 03:17] LABS: ABG HCO3 24.5 mmol/L (22.0-26.0); ABG OXYGEN SATURATION 97.5 % (94-97); ABG PCO2 (T) 42.5 mmHg (35.0-48.0); ABG PO2 (T) 97.1 mmHg (75.0-100.0); FCOHb 0.6 % (0.0-3.9); FMetHb 0.3 % (0.0-1.5); FO2Hb 96.6 % (94-97); PATIENT TEMPERATURE 36.1; PEEP 5 cm H2O; RESPIRATORY RATE 16 b/min; TIDAL VOLUME 550 mL; TOTAL HEMOGLOBIN 10.2 G/dl (14.0-18.0)
[2021-06-19] MEDS: hydrocortisone sod succ/PF 100mg/2ml inj. IV SCH ×3 (03:18→18:35)
[2021-06-19] MEDS: insulin regular, human U-100 3ml vial - multi-dose SQ SCH ×3 (03:22→13:37)
[2021-06-19 03:41] LABS: ALANINE AMINOTRANSFERASE 555 U/L (12-78); ALBUMIN 1.8 G/DL (3.4-5.0); ALBUMIN/GLOBULIN RATIO 0.6 (1.1-1.5); ALKALINE PHOSPHATASE 185 IU/L (46-116); ANION GAP 7 (8-16); ASPARTATE AMINO TRANSFERASE 217 U/L (10-37); BILIRUBIN,TOTAL 3.3 MG/DL (0.1-1.0); BLOOD UREA NITROGEN 54 MG/DL (7-18); BUN/CREATININE RATIO 16.7 (5.4-32.0); CALCIUM 7.6 MG/DL (8.5-10.1); CHLORIDE 101 MMOL/L (99-107); CREATININE 3.24 MG/DL (0.60-1.10); GLUCOSE 196 MG/DL (70-104); MAGNESIUM 1.9 MG/DL (1.5-2.4); PHOSPHORUS 2.3 MG/DL (2.3-4.5); POTASSIUM 4.3 MMOL/L (3.5-5.1); PREALBUMIN 15.1 MG/DL (19-36); SODIUM 133 MMOL/L (135-145); TOTAL CARBON DIOXIDE 24.7 MMOL/L (24-32); TOTAL PROTEIN 4.6 G/DL (6.4-8.2); TRIGLYCERIDES 186 MG/DL (20-135); eGFR 24 ML/MIN
[2021-06-19 04:08] LABS: BASOPHILS % (AUTO) 0.1 % (0-1); EOSINOPHILS % (AUTO) 0.3 % (0-6); HEMATOCRIT 28.9 % (42.0-52.0); HEMOGLOBIN 9.4 g/dl (14.0-17.9); LYMPHOCYTES # (AUTO) 0.7 X10'3 (1.1-4.8); LYMPHOCYTES % (AUTO) 3.8 % (21-51); MEAN CORPUSCULAR HEMOGLOBIN 29.1 PG (27.0-31.0); MEAN CORPUSCULAR HGB CONC 32.5 g/dL (33.0-36.5); MEAN CORPUSCULAR VOLUME 89.3 FL (78-98); MONOCYTES % (AUTO) 5.7 % (2-12); NEUTROPHILS # (AUTO) 15.6 X10'3 (1.8-7.7); NEUTROPHILS % (AUTO) 90.1 % (42-75); RED BLOOD COUNT 3.24 X10'6 (4.70-6.10); RED CELL DISTRIBUTION WIDTH 15.4 % (11.5-14.5); WHITE BLOOD COUNT 17.3 X10'3 (4.5-11.0)
[2021-06-19 04:11] LABS: PLATELET COUNT 49 X10'3 (140-440)
[2021-06-19] MEDS: ZINC/COPPER/MANGANESE/SELENIUM 0.5 ML, chromic chloride inj. 5 MCG in AMINO ACIDS 5 %/D... IV SCH ×2 (04:36→13:24)
--- NOTE | 2021-06-19 05:00 | NUR ---
Rounds with Dr. Quinn, reviewed patients plan of care, current labs, IV infusions, ventilator settings, ABG results. No new orders at this time.
[2021-06-19 05:12] LABS: NUCLEATED RED BLOOD CELLS 2 /100WBC (0-0); TOTAL CELLS COUNTED 100
[2021-06-19 05:13] LABS: ANISOCYTOSIS 1+; PLATELET ESTIMATE DECREASED
[2021-06-19 05:14] LABS: BURR CELLS FEW; POLYCHROMASIA FEW; SCHISTOCYTES FEW
--- NOTE | 2021-06-19 05:41 | NUR ---
Patient continues to require titration of sedation. Patient not following commands when awake and will thrash around in bed. Blankets applied and blood warmer of CVVH machine has been turned up during shift for patient temperature of 36.0.
--- NOTE | 2021-06-19 06:10 | NUR ---
Problems reprioritized. Patient report given, questions answered & plan of care reviewed with CRICKET Vergara.
[2021-06-19] MEDS: pantoprazole 40MG/NS 100ML BAG 100 ML IV SCH (07:00)
[2021-06-19] MEDS: fluconazole-Diflucan 200mg/NS 100 ML IV SCH (07:01)
[2021-06-19] MEDS: K and/or MAG REPLACEMENT MC SCH (07:03)
[2021-06-19] MEDS: piperacillin/tazo 3.375gm/50ml 50 ML IV SCH ×3 (07:34→15:53)
--- NOTE | 2021-06-19 08:34 | NUR ---
Pt. continues to spontaneously sit up and thrash his head from side to side while moving legs violently. Increased Propofol and Fentanyl. Precedex turned off for HR 45.
[2021-06-19 08:57] LABS: BASOPHILS % (AUTO) 0.1 % (0-1); EOSINOPHILS % (AUTO) 0.1 % (0-6); HEMOGLOBIN 9.2 g/dl (14.0-17.9); LYMPHOCYTES # (AUTO) 0.6 X10'3 (1.1-4.8); LYMPHOCYTES % (AUTO) 3.3 % (21-51); MEAN CORPUSCULAR HEMOGLOBIN 29.2 PG (27.0-31.0); MEAN CORPUSCULAR HGB CONC 32.9 g/dL (33.0-36.5); MEAN CORPUSCULAR VOLUME 88.8 FL (78-98); MEAN PLATELET VOLUME 11.1 FL (7.4-10.4); MONOCYTES % (AUTO) 5.4 % (2-12); NEUTROPHILS % (AUTO) 91.1 % (42-75); PLATELET COUNT 56 X10'3 (140-440); RED BLOOD COUNT 3.15 X10'6 (4.70-6.10); RED CELL DISTRIBUTION WIDTH 15.5 % (11.5-14.5); WHITE BLOOD COUNT 18.7 X10'3 (4.5-11.0)
[2021-06-19 08:59] LABS: ALBUMIN 1.7 G/DL (3.4-5.0); ANION GAP 10 (8-16); BLOOD UREA NITROGEN 51 MG/DL (7-18); CHLORIDE 102 MMOL/L (99-107); CREATININE 3.19 MG/DL (0.60-1.10); GLUCOSE 191 MG/DL (70-104); MAGNESIUM 1.7 MG/DL (1.5-2.4); PHOSPHORUS 2.2 MG/DL (2.3-4.5); POTASSIUM 4.2 MMOL/L (3.5-5.1); SODIUM 135 MMOL/L (135-145); TOTAL CARBON DIOXIDE 22.9 MMOL/L (24-32); eGFR 25 ML/MIN
--- NOTE | 2021-06-19 09:20 | NUR ---
Dr. Cross in st see pt.
--- NOTE | 2021-06-19 10:13 | NUR ---
CVVH down. Dr. Cross and HD RN aware.
[2021-06-19] MEDS ORDERED: heparin 1,000 units/ml 10ml inj HE ONE ×2 (10:40)
--- NOTE | 2021-06-19 11:08 | NUR ---
CVVH dc'd per Dr. Cross. Pt. turned and linen changed. Open skin noted on sacrum. MD and store operations manager aware. Photo obtained. WOC consult ordered. HD to start tomorrow. Awaiting Heparin flushes for Zeke ports.
--- NOTE | 2021-06-19 11:28 | NUR ---
f/u 06/19: Note pt started on Propofol, currently at 11.65ml/hr (307kcals), though does has been decreasing. D/w Pharmacist to hold lipids for now while pt on propofol, updated recs below. Pt also w/ DTI on sacrum per RN. CVVH is down and pt to start on HD 06/20 per School Cafeteria Head Cook. Recommendations: 1. Continuous TPN per mercury cracking tester via central access using 2:1 Clinimix non-E 09/22 at 105 ml/hr w/ no lipids while pt on propofol. To provide 2520 ml volume/day, 126 g AA, 504g dext (3.67 mg/kg/min dext load), and 2218 avg kcal/day. 2. TG/PALB q / 3. Daily scaled wts 4. Monitor for PN tolerance and adjustment needs 5. Bowel regimen per surgeon post-op 6. IF GI function returns consider trickle EN as medically indicated while on vent Addendum: 06/19/21 at [address] Amended: Links added.
--- NOTE | 2021-06-19 11:35 | NUR ---
Weaning/decreasing sedation now that CVVH is off and pt. can be more awake.
--- NOTE | 2021-06-19 13:59 | NUR ---
Pt's weaning parameters shown to Dr. Cross. Turned sedation off so pt. can wake up and be assessed by Dr. Cross.
--- NOTE | 2021-06-19 14:09 | NUR ---
Dr. Cross evaluated pt. Order received to extubate. RT paged.
--- NOTE | 2021-06-19 14:53 | NUR ---
Pt. extubated at 1420 without complications.
--- NOTE | 2021-06-19 14:57 | NUR ---
Dtr. Mendiola called for pt. They spoke on the phone. Pt. reoriented to place and events.
--- NOTE | 2021-06-19 15:36 | NUR ---
Wound noted @ right corner of mouth where ETT was positioned. Photo obtained.
--- NOTE | 2021-06-19 17:14 | NUR ---
Dr. Dumont called re. pt. Notified of pt's creatine, CVVH is dc'd, HD will start tomorrow and pressors are off.
--- NOTE | 2021-06-19 17:23 | NUR ---
Dr. Cross in to check on pt. Pt's S.O at bedside. VSS. Pt. has call light in reach.
--- NOTE | 2021-06-19 18:08 | NUR ---
Problems reprioritized. Patient report given, questions answered & plan of care reviewed with Kev HARLEY.
[2021-06-19] MEDS: dextrose 50%-water 50ml dispensing syringe IV PRN (19:52)
[2021-06-19] MEDS: HYDROmorphone 1 mg/ml syringe IV PRN ×2 (20:15→22:22)
[2021-06-19] MEDS: insulin glargine (Lantus) pen - multi-dose SQ SCH (21:00)
[2021-06-20] VITALS (24 sets, daily range): BP systolic 104–144; BP diastolic 46–70
[2021-06-20] MEDS: ZINC/COPPER/MANGANESE/SELENIUM 0.5 ML, chromic chloride inj. 5 MCG in AMINO ACIDS 5 %/D... IV SCH ×3 (00:19→19:29)
[2021-06-20] MEDS: HYDROmorphone 1 mg/ml syringe IV PRN ×6 (00:20→19:10)
[2021-06-20] MEDS: insulin regular, human U-100 3ml vial - multi-dose SQ SCH (02:41)
[2021-06-20] MEDS: hydrocortisone sod succ/PF 100mg/2ml inj. IV SCH ×3 (02:44→19:19)
[2021-06-20 02:57] LABS: BASOPHILS % (AUTO) 0.1 % (0-1); EOSINOPHILS # (AUTO) 0.2 X10'3 (0-0.9); EOSINOPHILS % (AUTO) 0.9 % (0-6); HEMATOCRIT 28.2 % (42.0-52.0); HEMOGLOBIN 9.3 g/dl (14.0-17.9); LYMPHOCYTES # (AUTO) 0.7 X10'3 (1.1-4.8); MEAN CORPUSCULAR HEMOGLOBIN 29.1 PG (27.0-31.0); MEAN CORPUSCULAR HGB CONC 32.9 g/dL (33.0-36.5); MEAN CORPUSCULAR VOLUME 88.4 FL (78-98); MEAN PLATELET VOLUME 9.6 FL (7.4-10.4); MONOCYTES # (AUTO) 0.8 X10'3 (0-0.9); MONOCYTES % (AUTO) 3.5 % (2-12); NEUTROPHILS # (AUTO) 20.5 X10'3 (1.8-7.7); NEUTROPHILS % (AUTO) 92.5 % (42-75); PLATELET COUNT 100 X10'3 (140-440); RED BLOOD COUNT 3.19 X10'6 (4.70-6.10); RED CELL DISTRIBUTION WIDTH 15.3 % (11.5-14.5); WHITE BLOOD COUNT 22.1 X10'3 (4.5-11.0)
[2021-06-20 03:13] LABS: ALANINE AMINOTRANSFERASE 519 U/L (12-78); ALBUMIN 1.7 G/DL (3.4-5.0); ANION GAP 9 (8-16); ASPARTATE AMINO TRANSFERASE 346 U/L (10-37); BILIRUBIN,TOTAL 4.6 MG/DL (0.1-1.0); BLOOD UREA NITROGEN 73 MG/DL (7-18); BUN/CREATININE RATIO 15.3 (5.4-32.0); CALCIUM 7.3 MG/DL (8.5-10.1); CHLORIDE 100 MMOL/L (99-107); CREATININE 4.78 MG/DL (0.60-1.10); GLUCOSE 161 MG/DL (70-104); POTASSIUM 3.9 MMOL/L (3.5-5.1); SODIUM 132 MMOL/L (135-145); TOTAL CARBON DIOXIDE 22.9 MMOL/L (24-32); eGFR 15 ML/MIN
[2021-06-20 03:17] LABS: ALBUMIN/GLOBULIN RATIO 0.6 (1.1-1.5); TOTAL PROTEIN 4.7 G/DL (6.4-8.2); TRIGLYCERIDES 201 MG/DL (20-135)
[2021-06-20] MEDS: ondansetron/PF 4mg/2ml inj IV PRN (04:02)
[2021-06-20 04:12] LABS: NUCLEATED RED BLOOD CELLS 1 /100WBC (0-0); PLATELET ESTIMATE DECREASED; TOTAL CELLS COUNTED 100
[2021-06-20 04:13] LABS: ANISOCYTOSIS FEW; BURR CELLS FEW; LARGE PLATELETS FEW; SCHISTOCYTES FEW
--- NOTE | 2021-06-20 05:57 | NUR ---
Notified Dr. Matthews concerning patients expression of abd pain 10/13. Order for CT of abdomen pending. VSS 125/57 92 24 36.5 97%.
[2021-06-20] MEDS: dexmedetomidine/D5W 100mL 100 ML IV SCH ×3 (07:13→22:28)
[2021-06-20] MEDS ORDERED: heparin 1,000unit/ml 10ml vial 10 ML IV ONE (07:55)
[2021-06-20] MEDS ORDERED: EPOETIN ALFA-EPBX 20,000 UNIT/ML 1 ML MDV IV ONE (07:55)
[2021-06-20] MEDS ORDERED: heparin 1,000 units/ml 10ml inj IV ONE (07:55)
[2021-06-20] MEDS ORDERED: albumin (human) 25% 100ml IV 100 ML IV PRN (07:55)
[2021-06-20] MEDS: K and/or MAG REPLACEMENT MC SCH ×2 (08:00→20:00)
[2021-06-20] MEDS ORDERED: heparin 1,000 units/ml 10ml inj HE ONE ×2 (08:00)
[2021-06-20] MEDS: piperacillin/tazo 3.375gm/50ml 50 ML IV SCH ×2 (08:28→19:19)
[2021-06-20] MEDS: pantoprazole 40MG/NS 100ML BAG 100 ML IV SCH (08:28)
[2021-06-20] MEDS: MVI, adult No.4 with vit. K 10 ML in dextrose 5% water 500ml 500 ML IV SCH ×2 (08:28)
[2021-06-20] MEDS: fluconazole-Diflucan 200mg/NS 100 ML IV SCH (08:28)
--- NOTE | 2021-06-20 11:40 | NUR ---
F/u 06/20: Pt extubated remains NPO on HD w/ NG to suction -450ml out past 24 hours per EMR. Tolerating TPN at goal w/ Propofol now stopped; updated PN recs below given extubation. Able to meet 93% estimated protein needs without increasing PN volume further given current formulary; pt on HD w/ positive 6.9L fluid balance this admit and general +3 edema per EMR. PALB up to 15.1 this AM from 9.1 06/15 per EMR. Will monitor for PN tolerance and further nutrition intervention needs. Recommendations: 1. Continuous TPN per chief of anesthesiology via central access using 2:1 Clinimix non-E 09/22 at 105ml/hr w/ separate 250ml 20% intralipids to run 12H /Fri at 20.83ml/hr. To provide 2520ml volume/day, 126g AA, 504g dext (3.67 mg/kg/min dext load), and 2361 avg kcal/day. 2. TG/PALB q /; daily wts 3. Monitor for PN tolerance and adjustment needs 4. Advance diet as medically indicated to low-residue post-op Addendum: 06/20/21 at [address] Amended: Links added.
[2021-06-20] MEDS ORDERED: insulin regular, human 10 units/0.1 ml syringe SQ ONE (20:00)
[2021-06-20] MEDS: insulin glargine (Lantus) pen - multi-dose SQ SCH (20:16)
[2021-06-20] MEDS ORDERED: dexmedetomidine/D5W 100mL 100 ML IV SCH (21:55)
[2021-06-20 22:11] LABS: ABG BASE EXCESS -0.3 mmol/L (-2.0-2.0); ABG HCO3 22.8 mmol/L (22.0-26.0); ABG OXYGEN SATURATION 92.6 % (94-97); ABG PCO2 (T) 31.8 mmHg (35.0-48.0); ABG PO2 (T) 62.3 mmHg (75.0-100.0); ALLEN'S TEST POSITIVE; FCOHb 1.5 % (0.0-3.9); FMetHb 0.3 % (0.0-1.5); FO2Hb 90.9 % (94-97); PATIENT TEMPERATURE 37.4; TOTAL HEMOGLOBIN 9.4 G/dl (14.0-18.0)
[2021-06-21] VITALS (22 sets, daily range): BP systolic 96–152; BP diastolic 52–79
[2021-06-21] MEDS: HYDROmorphone 1 mg/ml syringe IV PRN ×2 (01:58→21:08)
[2021-06-21] MEDS: insulin regular, human U-100 3ml vial - multi-dose SQ SCH ×3 (02:58→20:25)
[2021-06-21] MEDS: dexmedetomidine/D5W 100mL 100 ML IV SCH ×4 (03:09→20:26)
[2021-06-21] MEDS: hydrocortisone sod succ/PF 100mg/2ml inj. IV SCH ×3 (03:25→19:09)
[2021-06-21 03:53] LABS: UREA NITROGEN 24HR,URINE 1.3 GM/24HR (7-20)
[2021-06-21 04:12] LABS: BASOPHILS % (AUTO) 0.1 % (0-1); EOSINOPHILS % (AUTO) 0.3 % (0-6); HEMATOCRIT 24.1 % (42.0-52.0); LYMPHOCYTES # (AUTO) 0.5 X10'3 (1.1-4.8); LYMPHOCYTES % (AUTO) 3.6 % (21-51); MEAN CORPUSCULAR HEMOGLOBIN 29.4 PG (27.0-31.0); MEAN CORPUSCULAR HGB CONC 33.3 g/dL (33.0-36.5); MEAN CORPUSCULAR VOLUME 88.3 FL (78-98); MONOCYTES # (AUTO) 0.5 X10'3 (0-0.9); MONOCYTES % (AUTO) 3.2 % (2-12); NEUTROPHILS # (AUTO) 14.1 X10'3 (1.8-7.7); NEUTROPHILS % (AUTO) 92.8 % (42-75); PLATELET COUNT 148 X10'3 (140-440); RED BLOOD COUNT 2.72 X10'6 (4.70-6.10); RED CELL DISTRIBUTION WIDTH 15.2 % (11.5-14.5); WHITE BLOOD COUNT 15.2 X10'3 (4.5-11.0)
[2021-06-21 04:41] LABS: ALANINE AMINOTRANSFERASE 363 U/L (12-78); ALBUMIN 1.6 G/DL (3.4-5.0); ALBUMIN/GLOBULIN RATIO 0.6 (1.1-1.5); ANION GAP 8 (8-16); ASPARTATE AMINO TRANSFERASE 152 U/L (10-37); BILIRUBIN,TOTAL 2.1 MG/DL (0.1-1.0); BLOOD UREA NITROGEN 71 MG/DL (7-18); BUN/CREATININE RATIO 14.3 (5.4-32.0); CALCIUM 6.9 MG/DL (8.5-10.1); CHLORIDE 102 MMOL/L (99-107); CREATININE 4.96 MG/DL (0.60-1.10); GLUCOSE 206 MG/DL (70-104); MAGNESIUM 1.8 MG/DL (1.5-2.4); PHOSPHORUS 2.3 MG/DL (2.3-4.5); POTASSIUM 3.4 MMOL/L (3.5-5.1); SODIUM 134 MMOL/L (135-145); TOTAL CARBON DIOXIDE 23.7 MMOL/L (24-32); TOTAL PROTEIN 4.3 G/DL (6.4-8.2); eGFR 15 ML/MIN
[2021-06-21 04:56] LABS: PLATELET ESTIMATE NORMAL; TOTAL CELLS COUNTED 100
[2021-06-21 04:57] LABS: BURR CELLS FEW; LARGE PLATELETS FEW; TEAR DROP CELLS FEW
[2021-06-21] MEDS: piperacillin/tazo 3.375gm/50ml 50 ML IV SCH ×2 (07:34→19:09)
[2021-06-21] MEDS: pantoprazole 40MG/NS 100ML BAG 100 ML IV SCH (07:36)
[2021-06-21] MEDS: fluconazole-Diflucan 200mg/NS 100 ML IV SCH (07:37)
[2021-06-21] MEDS: K and/or MAG REPLACEMENT MC SCH ×2 (08:00→19:10)
[2021-06-21] MEDS: potassium Cl 20mEq/100mL bag 100 ML IV PRN (09:27)
[2021-06-21] MEDS ORDERED: fentaNYL/PF 50MCG/1 ML 2ML syringe ONE (14:20)
[2021-06-21] MEDS ORDERED: heparin 1,000unit/ml 10ml vial 10 ML ONE (14:20)
[2021-06-21] MEDS: ZINC/COPPER/MANGANESE/SELENIUM 0.5 ML, chromic chloride inj. 5 MCG in AMINO ACIDS 5 %/D... IV SCH ×3 (14:24→23:49)
[2021-06-21] MEDS: insulin glargine (Lantus) pen - multi-dose SQ SCH (20:24)
[2021-06-22] VITALS (23 sets, daily range): BP systolic 101–164; BP diastolic 50–84
[2021-06-22] MEDS ORDERED: sodium phosphate inj. 15 MMOL in dextrose 5%-water 250 ML IV PRN (00:55)
[2021-06-22] MEDS ORDERED: Neutra Phos packet PO PRN (00:55)
[2021-06-22] MEDS ORDERED: sodium phosphate inj. 30 MMOL in dextrose 5%-water 250 ML IV PRN (00:55)
[2021-06-22] MEDS: dexmedetomidine/D5W 100mL 100 ML IV SCH ×3 (02:24→21:29)
[2021-06-22] MEDS: insulin regular, human U-100 3ml vial - multi-dose SQ SCH ×3 (02:24→22:29)
[2021-06-22] MEDS: hydrocortisone sod succ/PF 100mg/2ml inj. IV SCH ×3 (02:29→20:13)
[2021-06-22 03:12] LABS: BASOPHILS % (AUTO) 0.1 % (0-1); EOSINOPHILS # (AUTO) 0.1 X10'3 (0-0.9); EOSINOPHILS % (AUTO) 0.6 % (0-6); HEMATOCRIT 24.4 % (42.0-52.0); HEMOGLOBIN 8.4 g/dl (14.0-17.9); LYMPHOCYTES # (AUTO) 0.6 X10'3 (1.1-4.8); LYMPHOCYTES % (AUTO) 4.5 % (21-51); MEAN CORPUSCULAR HEMOGLOBIN 29.9 PG (27.0-31.0); MEAN CORPUSCULAR HGB CONC 34.5 g/dL (33.0-36.5); MEAN CORPUSCULAR VOLUME 86.7 FL (78-98); MEAN PLATELET VOLUME 9.3 FL (7.4-10.4); MONOCYTES # (AUTO) 0.8 X10'3 (0-0.9); MONOCYTES % (AUTO) 5.9 % (2-12); NEUTROPHILS # (AUTO) 12.1 X10'3 (1.8-7.7); NEUTROPHILS % (AUTO) 88.9 % (42-75); PLATELET COUNT 207 X10'3 (140-440); RED BLOOD COUNT 2.81 X10'6 (4.70-6.10); RED CELL DISTRIBUTION WIDTH 15.2 % (11.5-14.5); WHITE BLOOD COUNT 13.6 X10'3 (4.5-11.0)
[2021-06-22 03:26] LABS: ALANINE AMINOTRANSFERASE 336 U/L (12-78); ALBUMIN 1.8 G/DL (3.4-5.0); ALBUMIN/GLOBULIN RATIO 0.6 (1.1-1.5); ALKALINE PHOSPHATASE 477 IU/L (46-116); ANION GAP 13 (8-16); ASPARTATE AMINO TRANSFERASE 164 U/L (10-37); BILIRUBIN,TOTAL 1.9 MG/DL (0.1-1.0); BLOOD UREA NITROGEN 101 MG/DL (7-18); BUN/CREATININE RATIO 14.2 (5.4-32.0); CALCIUM 7.1 MG/DL (8.5-10.1); CHLORIDE 98 MMOL/L (99-107); CREATININE 7.09 MG/DL (0.60-1.10); GLUCOSE 101 MG/DL (70-104); MAGNESIUM 1.9 MG/DL (1.5-2.4); POTASSIUM 3.6 MMOL/L (3.5-5.1); PREALBUMIN 23.1 MG/DL (19-36); SODIUM 132 MMOL/L (135-145); TOTAL CARBON DIOXIDE 21.4 MMOL/L (24-32); TOTAL PROTEIN 4.8 G/DL (6.4-8.2); TRIGLYCERIDES 151 MG/DL (20-135); eGFR 10 ML/MIN
[2021-06-22] MEDS: pantoprazole 40MG/NS 100ML BAG 100 ML IV SCH (07:47)
[2021-06-22] MEDS: fluconazole-Diflucan 200mg/NS 100 ML IV SCH (07:47)
[2021-06-22] MEDS: piperacillin/tazo 3.375gm/50ml 50 ML IV SCH ×2 (07:47→20:11)
[2021-06-22] MEDS: K and/or MAG REPLACEMENT MC SCH ×2 (08:00→20:00)
[2021-06-22] MEDS ORDERED: EPOETIN ALFA-EPBX 20,000 UNIT/ML 1 ML MDV IV ONE (08:10)
[2021-06-22] MEDS ORDERED: normal saline 1000ml 250 ML IV PRN (08:10)
[2021-06-22] MEDS ORDERED: heparin 1,000 units/ml 10ml inj HE ONE ×2 (08:15)
[2021-06-22] MEDS ORDERED: heparin 1,000unit/ml 10ml vial 10 ML IV ONE (08:25)
--- NOTE | 2021-06-22 09:07 | NUR ---
Pt. having loose stool and contaminating wound on coccyx. A rectal tube was placed.
[2021-06-22] MEDS: ZINC/COPPER/MANGANESE/SELENIUM 0.5 ML, chromic chloride inj. 5 MCG in AMINO ACIDS 5 %/D... IV SCH ×2 (10:38→19:03)
[2021-06-22 12:28] LABS: PHOSPHORUS 3.5 MG/DL (2.3-4.5)
--- NOTE | 2021-06-22 14:26 | NUR ---
Pt. was able to have lunch. Changed TPN rate to 52.5 Mls/hr @1400.
--- NOTE | 2021-06-22 15:09 | NUR ---
PRESSURE ULCER EDUCATION: DEFINITION: A pressure ulcer is an area of skin that breaks down when you stay in one position too long. The constant pressure against the skin reduces the blood flow to that area and the affected tissue dies. CAUSES: "Being bedridden or in a wheelchair "Fragile skin "Having a chronic condition, such as diabetes or vascular disease "Inability to move certain parts of your body without assistance "Older age "Incontinence of urine or stool SYMPTOMS: "A reddened area that DOES NOT turn white when pressed on - this can be the beginning of a pressure ulcer "A blister, deep sore or a crater - these can be advanced pressure ulcers FIRST AID: "Relieve the pressure on this area "Keep the area clean and dry "Call your primary doctor if you see any of the above symptoms "DO NOT massage the area "DO NOT use a donut shaped or ring shaped pillow- these actually interfere with the blood flow and cause complications PREVENTION: "Check for pressure ulcers everyday "Change position at least every two hours to relieve pressure "Use items that help relieve pressure- pillows, sheepskin, foam padding, and powders. "Keep skin clean and dry "Eat healthy well balanced meals "Exercise daily IF YOU SEE ANY OF THESE SYMPTOMS WHILE IN THE HOSPITAL - TELL YOUR NURSE IMMEDIATELY. IF YOU SEE ANY OF THESE SYMPTOMS WHILE AT HOME OR HAVE ANY QUESTIONS OR CONCERNS ABOUT PRESSURE ULCERS - CALL YOUR PRIMARY DOCTOR IMMEDIATELY. Addendum: 06/22/21 at 1509 by Josseline Ortiz RN Amended: Links added.
--- NOTE | 2021-06-22 18:30 | NUR ---
Patient in room ICU 2044. I have received report from Diony HARLEY and had the opportunity to ask questions and assume patient care.
[2021-06-22] MEDS: heparin, porcine 5000 units/ml vial SQ SCH (20:13)
--- NOTE | 2021-06-22 21:25 | NUR ---
Patient agitated, restless and emotional. Repositioned patient. Precedex restarted. Medicated for pain level of 9/10 per patient statement. Will continue to monitor.
[2021-06-22] MEDS: HYDROmorphone 1 mg/ml syringe IV PRN (21:29)
--- NOTE | 2021-06-22 22:30 | NUR ---
NG tube removed.minimal output and patient has diet ordered and is eating.
[2021-06-22] MEDS: insulin glargine (Lantus) pen - multi-dose SQ SCH (22:31)
[2021-06-23] VITALS (23 sets, daily range): BP systolic 103–154; BP diastolic 51–77
[2021-06-23] MEDS: ZINC/COPPER/MANGANESE/SELENIUM 0.5 ML, chromic chloride inj. 5 MCG in AMINO ACIDS 5 %/D... IV SCH (02:09)
--- NOTE | 2021-06-23 02:30 | NUR ---
blood sugar was 65 and treated with D50 per protocol, rechecked and blood sugar came up to 104
[2021-06-23] MEDS: dextrose 50%-water 50ml dispensing syringe IV PRN (02:37)
[2021-06-23] MEDS: hydrocortisone sod succ/PF 100mg/2ml inj. IV SCH ×3 (03:12→19:44)
[2021-06-23 06:03] LABS: BASOPHILS % (AUTO) 0.1 % (0-1); EOSINOPHILS % (AUTO) 0.4 % (0-6); HEMATOCRIT 25.4 % (42.0-52.0); HEMOGLOBIN 8.5 g/dl (14.0-17.9); LYMPHOCYTES # (AUTO) 0.7 X10'3 (1.1-4.8); LYMPHOCYTES % (AUTO) 6.3 % (21-51); MEAN CORPUSCULAR HEMOGLOBIN 29.5 PG (27.0-31.0); MEAN CORPUSCULAR HGB CONC 33.6 g/dL (33.0-36.5); MEAN CORPUSCULAR VOLUME 87.8 FL (78-98); MEAN PLATELET VOLUME 8.9 FL (7.4-10.4); MONOCYTES # (AUTO) 0.7 X10'3 (0-0.9); MONOCYTES % (AUTO) 6.7 % (2-12); NEUTROPHILS # (AUTO) 9.4 X10'3 (1.8-7.7); NEUTROPHILS % (AUTO) 86.5 % (42-75); PLATELET COUNT 294 X10'3 (140-440); RED BLOOD COUNT 2.89 X10'6 (4.70-6.10); RED CELL DISTRIBUTION WIDTH 15.1 % (11.5-14.5); WHITE BLOOD COUNT 10.9 X10'3 (4.5-11.0)
[2021-06-23 06:16] LABS: ALANINE AMINOTRANSFERASE 347 U/L (12-78); ALBUMIN 1.8 G/DL (3.4-5.0); ALBUMIN/GLOBULIN RATIO 0.6 (1.1-1.5); ALKALINE PHOSPHATASE 455 IU/L (46-116); ANION GAP 14 (8-16); ASPARTATE AMINO TRANSFERASE 199 U/L (10-37); BILIRUBIN,TOTAL 1.6 MG/DL (0.1-1.0); BLOOD UREA NITROGEN 73 MG/DL (7-18); BUN/CREATININE RATIO 12.3 (5.4-32.0); CALCIUM 7.1 MG/DL (8.5-10.1); CHLORIDE 101 MMOL/L (99-107); CREATININE 5.92 MG/DL (0.60-1.10); GLUCOSE 107 MG/DL (70-104); MAGNESIUM 1.8 MG/DL (1.5-2.4); PHOSPHORUS 3.9 MG/DL (2.3-4.5); POTASSIUM 3.5 MMOL/L (3.5-5.1); SODIUM 137 MMOL/L (135-145); TOTAL CARBON DIOXIDE 22.3 MMOL/L (24-32); TOTAL PROTEIN 4.8 G/DL (6.4-8.2); eGFR 12 ML/MIN
--- NOTE | 2021-06-23 06:40 | NUR ---
Patient in room ICU 2044. I have received report from CRICKET Espinoza and had the opportunity to ask questions and assume patient care.
[2021-06-23] MEDS: K and/or MAG REPLACEMENT MC SCH ×2 (08:00→19:47)
[2021-06-23] MEDS: fat emulsion IV bag 250 ML IV SCH ×3 (08:00→10:38)
[2021-06-23] MEDS ORDERED: QUEtiapine 25mg tablet PO ONE (08:35)
[2021-06-23] MEDS: pantoprazole 40MG/NS 100ML BAG 100 ML IV SCH (09:32)
[2021-06-23] MEDS: piperacillin/tazo 3.375gm/50ml 50 ML IV SCH ×2 (09:32→19:47)
[2021-06-23] MEDS: heparin, porcine 5000 units/ml vial SQ SCH ×2 (09:32→19:47)
[2021-06-23] MEDS: fluconazole-Diflucan 200mg/NS 100 ML IV SCH (09:34)
[2021-06-23] MEDS: MVI, adult No.4 with vit. K 10 ML in dextrose 5% water 500ml 500 ML IV SCH ×2 (09:34)
[2021-06-23] MEDS: dexmedetomidine/D5W 100mL 100 ML IV SCH (09:49)
[2021-06-23] MEDS: insulin regular, human U-100 3ml vial - multi-dose SQ SCH (10:57)
--- NOTE | 2021-06-23 12:20 | NUR ---
Pt had a large bowel movement, rectal tube was not working and was discontinued.
--- NOTE | 2021-06-23 12:42 | NUR ---
F/u 06/23: Pt tolerating TPN at goal advanced to renal/EC7/low-residue diet yesterday per MD. Noted MM5/honey thick diet added also yesterday afternoon though pt reports no issues chewing/swallowing this admit simply requesting soft to chew foods; no PO issues verified per RN this AM. RD d/w RN regarding stopping MM5/honey thick diet if MD agreeable given pt report and no ENGROSSER BSS. TPN halved yesterday afternoon though remained at half rate overnight w/ temporary return to goal for 3 hours this AM per EMR. PN currently at half rate though to be stopped at noon given PO tolerance. Pt PO ~100% breakfast per RN this AM requesting hamburger though w/ current MM5/honey thick/renal diet unable to provide. Pt would benefit from Jaylan ONS for wound healing needs; given current diet order will need thickened vanilla shake; MD notified. Rectal tube -600ml past 24 hours first significant BM post-op per EMR. Will continue to monitor for PO trends and further nutrition intervention needs this admit. Recommendations: 1. Continue renal/low-residue/EC7 diet per MD; consider removal of MM5/honey thick diet given pt reports no issues chewing/swallowing w/ no ENGROSSER BSS; likely error 2. thickened Vanilla Jaylan shake BIDLD given current diet order for wound healing needs; pending MD verification in EMR. Consider thin liquid Jaylan vanilla Jaylan shake following diet clarification 3. bowel regimen per MD; rectal tube -600ml output 06/22-06/23 first BM post-op per EMR 4. wts w/ HD Addendum: 06/23/21 at [address] Amended: Links added.
--- NOTE | 2021-06-23 13:43 | NUR ---
Wound care in with [facility] steep tender for recheck of MASD to this patient's bilateral buttock. The pt is lying in bed in no apparent acute distress. greeted and explained intent, agreeable to skin assessment. His buttocks appears with sloughing skin that has dried and crusted edges, moist but not actively draining, no odor. wound care is performed per MD orders. The patient is educated concerning the plan of care. Bed left in the lowest position, call light/personal items in reach. Addendum: 06/23/21 at 1349 by Josseline Ortiz RN Amended: Links added.
--- NOTE | 2021-06-23 13:52 | NUR ---
WOUND INFECTION EDUCATION PROVIDED BY WOUND CARE 1. Patient instructed to call their primary doctor, or go the ED immediately if any of the following symptoms occur: * Increased pain in wound * Increase in drainage from the wound * Redness in the skin surrounding the wound * Warmth in the skin surrounding the wound * Bleeding from the wound * Temperature of 101 or greater 2. If any of these occur while in the hospital tell a nurse immediately. PRESSURE ULCER EDUCATION: DEFINITION: A pressure ulcer is an area of skin that breaks down when you stay in one position too long. The constant pressure against the skin reduces the blood flow to that area and the affected tissue dies. CAUSES: "Being bedridden or in a wheelchair "Fragile skin "Having a chronic condition, such as diabetes or vascular disease "Inability to move certain parts of your body without assistance "Older age "Incontinence of urine or stool SYMPTOMS: "A reddened area that DOES NOT turn white when pressed on - this can be the beginning of a pressure ulcer "A blister, deep sore or a crater - these can be advanced pressure ulcers FIRST AID: "Relieve the pressure on this area "Keep the area clean and dry "Call your primary doctor if you see any of the above symptoms "DO NOT massage the area "DO NOT use a donut shaped or ring shaped pillow- these actually interfere with the blood flow and cause complications PREVENTION: "Check for pressure ulcers everyday "Change position at least every two hours to relieve pressure "Use items that help relieve pressure- pillows, sheepskin, foam padding, and powders. "Keep skin clean and dry "Eat healthy well balanced meals "Exercise daily IF YOU SEE ANY OF THESE SYMPTOMS WHILE IN THE HOSPITAL - TELL YOUR NURSE IMMEDIATELY. IF YOU SEE ANY OF THESE SYMPTOMS WHILE AT HOME OR HAVE ANY QUESTIONS OR CONCERNS ABOUT PRESSURE ULCERS - CALL YOUR PRIMARY DOCTOR IMMEDIATELY. Addendum: 06/23/21 at 1353 by Josseline Ortiz RN Amended: Links added.
--- NOTE | 2021-06-23 14:05 | NUR ---
Pt had a large bowel movement, rectal tube not working as intended. Rectal tube dc'ed. Pt tolerated well.
--- NOTE | 2021-06-23 15:04 | NUR ---
Lipids not given this AM as per MD, TPN and lipids are to be discontinued. TPN discontinued at 1415. Pt's blood sugar at the time was 72. Pt given a snack. Will recheck blood sugar and continue to monitor.
--- NOTE | 2021-06-23 15:34 | NUR ---
Right femoral central line dc'ed per protocol. Manual pressure for 10 minutes. Light pressure dressing applied. Hemostatis achieved.
[2021-06-23] MEDS ORDERED: JUVEN Shake w/Arg/Glut/Ca2+Bmb (Juven 19.3gm) pkt 240ml PO SCH (17:30)
--- NOTE | 2021-06-23 17:40 | NUR ---
NG tube dc'ed. No complications. Pt tolerated well. Total output was 150ml. Addendum: 06/23/21 at 1843 by Kayy Cuevas RN Wrong patient
--- NOTE | 2021-06-23 18:30 | NUR ---
Patient in room ICU 2044. I have received report from Kayy HARLEY and had the opportunity to ask questions and assume patient care.
--- NOTE | 2021-06-23 18:54 | NUR ---
Problems reprioritized. Patient report given, questions answered & plan of care reviewed with CRICKET Espinoza.
[2021-06-23] MEDS ORDERED: insulin Lispro (HumaLOG) vial - multi-dose SQ SCH (20:05)
[2021-06-23] MEDS: insulin glargine (Lantus) pen - multi-dose SQ SCH (21:15)
[2021-06-24] VITALS (13 sets, daily range): BP systolic 110–179; BP diastolic 58–107
[2021-06-24] MEDS: hydrocortisone sod succ/PF 100mg/2ml inj. IV SCH ×3 (02:37→19:24)
[2021-06-24] MEDS: HYDROmorphone 1 mg/ml syringe IV PRN (02:37)
[2021-06-24 04:09] LABS: BASOPHILS % (AUTO) 0.1 % (0-1); EOSINOPHILS % (AUTO) 0.2 % (0-6); HEMATOCRIT 23.5 % (42.0-52.0); LYMPHOCYTES # (AUTO) 0.7 X10'3 (1.1-4.8); LYMPHOCYTES % (AUTO) 7.1 % (21-51); MEAN CORPUSCULAR HGB CONC 33.9 g/dL (33.0-36.5); MEAN CORPUSCULAR VOLUME 88.4 FL (78-98); MEAN PLATELET VOLUME 8.6 FL (7.4-10.4); MONOCYTES # (AUTO) 0.9 X10'3 (0-0.9); MONOCYTES % (AUTO) 8.4 % (2-12); NEUTROPHILS % (AUTO) 84.2 % (42-75); PLATELET COUNT 378 X10'3 (140-440); RED BLOOD COUNT 2.66 X10'6 (4.70-6.10); RED CELL DISTRIBUTION WIDTH 15.3 % (11.5-14.5); WHITE BLOOD COUNT 10.6 X10'3 (4.5-11.0)
[2021-06-24 04:55] LABS: ALANINE AMINOTRANSFERASE 287 U/L (12-78); ALBUMIN 1.9 G/DL (3.4-5.0); ALBUMIN/GLOBULIN RATIO 0.6 (1.1-1.5); ALKALINE PHOSPHATASE 360 IU/L (46-116); ANION GAP 18 (8-16); ASPARTATE AMINO TRANSFERASE 116 U/L (10-37); BILIRUBIN,TOTAL 1.4 MG/DL (0.1-1.0); BLOOD UREA NITROGEN 92 MG/DL (7-18); BUN/CREATININE RATIO 11.6 (5.4-32.0); CHLORIDE 101 MMOL/L (99-107); CREATININE 7.95 MG/DL (0.60-1.10); GLUCOSE 79 MG/DL (70-104); MAGNESIUM 1.9 MG/DL (1.5-2.4); PHOSPHORUS 5.4 MG/DL (2.3-4.5); POTASSIUM 3.5 MMOL/L (3.5-5.1); SODIUM 139 MMOL/L (135-145); TOTAL CARBON DIOXIDE 20.2 MMOL/L (24-32); eGFR 9 ML/MIN
[2021-06-24] MEDS: dexmedetomidine/D5W 100mL 100 ML IV SCH (05:34)
--- NOTE | 2021-06-24 06:10 | NUR ---
Problems reprioritized. Patient report given, questions answered & plan of care reviewed with oncoming shift. [place]ee documentation: I have reviewed and agree with all interventions, assessments performed and documented by Sanna HARLEY. [place] Medication Administration: For this medication-pass time frame, all medication were reviewed, dispensed, administered and documented per hospital policy by Sanna HARLEY .
[2021-06-24] MEDS ORDERED: hydrALAZINE 20mg/ml inj. IV PRN (08:00)
[2021-06-24] MEDS: K and/or MAG REPLACEMENT MC SCH ×2 (08:00→20:00)
[2021-06-24] MEDS ORDERED: heparin 1,000 units/ml 10ml inj IV ONE ×2 (09:50)
[2021-06-24] MEDS ORDERED: heparin 1,000 units/ml 10ml inj HE ONE ×2 (09:55)
[2021-06-24] MEDS: fluconazole-Diflucan 200mg/NS 100 ML IV SCH (10:31)
[2021-06-24] MEDS: piperacillin/tazo 3.375gm/50ml 50 ML IV SCH ×2 (10:32→20:55)
[2021-06-24] MEDS: pantoprazole 40MG/NS 100ML BAG 100 ML IV SCH (10:33)
[2021-06-24] MEDS: heparin, porcine 5000 units/ml vial SQ SCH ×2 (10:35→19:25)
--- NOTE | 2021-06-24 11:47 | NUR ---
per orders pt was transferred to [facility]. Charge nurse, Maryam, called reported. Pt was transferred via wheel chair with all belongings
--- NOTE | 2021-06-24 11:50 | NUR ---
Arrive to rm 307, Alert, Oriented, Anxious, Telemetry applied, IV access intact-flush well with good blood return, dialyses nurse arrived to unit upon pt arrival to begin dialysis.Spouse at bedside.Denies any discomforts. Will note any status.
--- NOTE | 2021-06-24 18:15 | NUR ---
Patient in room MED 307. I have received report from CRICKET Garrido and had the opportunity to ask questions and assume patient care.
[2021-06-24] MEDS: acetaminophen 325mg tablet PO PRN (19:26)
[2021-06-24] MEDS: insulin glargine (Lantus) pen - multi-dose SQ SCH (21:00)
--- NOTE | 2021-06-24 22:11 | NUR ---
Patient very anxious and agitated, asking to leave AMA. Daughter, Son and girlfriend very concerns. Call Dr Resendiz and left msg.
[2021-06-24] MEDS ORDERED: LORazepam 2 mg/ml vial IV ONE (22:40)
[2021-06-25] MEDS: acetaminophen 325mg tablet PO PRN ×3 (01:22→19:26)
[2021-06-25] MEDS: hydrocortisone sod succ/PF 100mg/2ml inj. IV SCH ×3 (03:33→19:25)
--- NOTE | 2021-06-25 06:05 | NUR ---
RECEIVED REPORT FROM CRICKET WATTS
--- NOTE | 2021-06-25 06:20 | NUR ---
Problems reprioritized. Patient report given, questions answered & plan of care reviewed with CRICKET Bah.
[2021-06-25 07:00] VITALS: BP 156/68
[2021-06-25 07:46] LABS: ALANINE AMINOTRANSFERASE 197 U/L (12-78); ALBUMIN 1.9 G/DL (3.4-5.0); ALBUMIN/GLOBULIN RATIO 0.6 (1.1-1.5); ALKALINE PHOSPHATASE 246 IU/L (46-116); ANION GAP 16 (8-16); ASPARTATE AMINO TRANSFERASE 61 U/L (10-37); BILIRUBIN,TOTAL 1.4 MG/DL (0.1-1.0); BLOOD UREA NITROGEN 58 MG/DL (7-18); CHLORIDE 103 MMOL/L (99-107); CREATININE 6.45 MG/DL (0.60-1.10); GLUCOSE 89 MG/DL (70-104); MAGNESIUM 1.9 MG/DL (1.5-2.4); PHOSPHORUS 5.2 MG/DL (2.3-4.5); POTASSIUM 3.6 MMOL/L (3.5-5.1); SODIUM 142 MMOL/L (135-145); TOTAL CARBON DIOXIDE 23.4 MMOL/L (24-32); TOTAL PROTEIN 4.9 G/DL (6.4-8.2); eGFR 11 ML/MIN
[2021-06-25 07:47] LABS: BASOPHILS % (AUTO) 0.3 % (0-1); EOSINOPHILS # (AUTO) 0.1 X10'3 (0-0.9); EOSINOPHILS % (AUTO) 0.9 % (0-6); HEMATOCRIT 23.3 % (42.0-52.0); HEMOGLOBIN 7.8 g/dl (14.0-17.9); LYMPHOCYTES # (AUTO) 0.5 X10'3 (1.1-4.8); LYMPHOCYTES % (AUTO) 6.5 % (21-51); MEAN CORPUSCULAR HEMOGLOBIN 29.8 PG (27.0-31.0); MEAN CORPUSCULAR HGB CONC 33.6 g/dL (33.0-36.5); MEAN CORPUSCULAR VOLUME 88.9 FL (78-98); MEAN PLATELET VOLUME 8.1 FL (7.4-10.4); MONOCYTES # (AUTO) 0.7 X10'3 (0-0.9); MONOCYTES % (AUTO) 8.6 % (2-12); NEUTROPHILS # (AUTO) 6.8 X10'3 (1.8-7.7); NEUTROPHILS % (AUTO) 83.7 % (42-75); PLATELET COUNT 420 X10'3 (140-440); RED BLOOD COUNT 2.63 X10'6 (4.70-6.10); RED CELL DISTRIBUTION WIDTH 15.9 % (11.5-14.5); WHITE BLOOD COUNT 8.1 X10'3 (4.5-11.0)
[2021-06-25] MEDS: K and/or MAG REPLACEMENT MC SCH ×2 (08:00→19:01)
[2021-06-25] MEDS: pantoprazole 40MG/NS 100ML BAG 100 ML IV SCH (08:00)
[2021-06-25] MEDS: heparin, porcine 5000 units/ml vial SQ SCH ×2 (08:00→19:25)
[2021-06-25] MEDS: fluconazole-Diflucan 200mg/NS 100 ML IV SCH (08:05)
--- NOTE | 2021-06-25 13:42 | NUR ---
ATTEMPTED TO PAGE TO ASK FOR IMMODIUM AND A PROBIOTIC BUT PAGING SYSTEM IS NOT WORKING AT THIS TIME
[2021-06-25 18:00] VITALS: BP 151/69
--- NOTE | 2021-06-25 18:10 | NUR ---
GAVE REPORT TO Marleen WOOTEN RN
[2021-06-25] MEDS: insulin glargine (Lantus) pen - multi-dose SQ SCH (19:01)
[2021-06-25] MEDS ORDERED: loperamide 2mg capsule PO ONE (21:15)
[2021-06-25] MEDS ORDERED: loperamide 2mg capsule PO PRN (21:15)
[2021-06-25 22:00] VITALS: BP 128/60
[2021-06-26 02:00] VITALS: BP 113/47
[2021-06-26] MEDS: hydrocortisone sod succ/PF 100mg/2ml inj. IV SCH ×2 (02:57→11:00)
[2021-06-26] MEDS: acetaminophen 325mg tablet PO PRN ×2 (03:41→13:22)
[2021-06-26 05:56] LABS: BASOPHILS % (AUTO) 0.5 % (0-1); EOSINOPHILS # (AUTO) 0.1 X10'3 (0-0.9); HEMATOCRIT 22.5 % (42.0-52.0); HEMOGLOBIN 7.7 g/dl (14.0-17.9); LYMPHOCYTES # (AUTO) 0.6 X10'3 (1.1-4.8); LYMPHOCYTES % (AUTO) 9.7 % (21-51); MEAN CORPUSCULAR HEMOGLOBIN 30.5 PG (27.0-31.0); MEAN CORPUSCULAR HGB CONC 34.4 g/dL (33.0-36.5); MEAN CORPUSCULAR VOLUME 88.6 FL (78-98); MEAN PLATELET VOLUME 7.7 FL (7.4-10.4); MONOCYTES # (AUTO) 0.8 X10'3 (0-0.9); MONOCYTES % (AUTO) 13.6 % (2-12); NEUTROPHILS # (AUTO) 4.6 X10'3 (1.8-7.7); NEUTROPHILS % (AUTO) 75.2 % (42-75); PLATELET COUNT 433 X10'3 (140-440); RED BLOOD COUNT 2.54 X10'6 (4.70-6.10); RED CELL DISTRIBUTION WIDTH 15.7 % (11.5-14.5); WHITE BLOOD COUNT 6.2 X10'3 (4.5-11.0)
[2021-06-26 06:00] VITALS: BP 148/55
[2021-06-26 06:36] LABS: ALANINE AMINOTRANSFERASE 175 U/L (12-78); ALBUMIN 2.1 G/DL (3.4-5.0); ALBUMIN/GLOBULIN RATIO 0.6 (1.1-1.5); ALKALINE PHOSPHATASE 214 IU/L (46-116); ANION GAP 18 (8-16); ASPARTATE AMINO TRANSFERASE 44 U/L (10-37); BILIRUBIN,TOTAL 1.1 MG/DL (0.1-1.0); BLOOD UREA NITROGEN 65 MG/DL (7-18); CALCIUM 6.9 MG/DL (8.5-10.1); CHLORIDE 102 MMOL/L (99-107); CREATININE 8.15 MG/DL (0.60-1.10); GLUCOSE 113 MG/DL (70-104); MAGNESIUM 1.9 MG/DL (1.5-2.4); PHOSPHORUS 6.3 MG/DL (2.3-4.5); POTASSIUM 3.2 MMOL/L (3.5-5.1); SODIUM 141 MMOL/L (135-145); TOTAL CARBON DIOXIDE 21.1 MMOL/L (24-32); TOTAL PROTEIN 5.4 G/DL (6.4-8.2); TRIGLYCERIDES 178 MG/DL (20-135); eGFR 8 ML/MIN
[2021-06-26] MEDS: fluconazole-Diflucan 200mg/NS 100 ML IV SCH (07:36)
[2021-06-26] MEDS: pantoprazole 40MG/NS 100ML BAG 100 ML IV SCH (07:36)
[2021-06-26] MEDS: heparin, porcine 5000 units/ml vial SQ SCH (07:37)
[2021-06-26] MEDS: K and/or MAG REPLACEMENT MC SCH (08:00)
[2021-06-26 10:00] VITALS: BP 135/72
[2021-06-26] MEDS: potassium Cl 20mEq/100mL bag 100 ML IV PRN ×2 (10:29→13:19)
[2021-06-26 14:00] VITALS: BP 150/75
--- NOTE | 2021-06-26 17:30 | NUR ---
Report given to Ursula HARLEY at [facility]. Per RN request, patient will leave with rodriguez catheter and R arm picc. Patient has no personal belongings to be transferred with him. Mother is at bedside and is aware of transfer. Patient kept free from injuries, transfer packet given to transportation services.
[2021-06-27] MEDS ORDERED: heparin 1,000unit/ml 10ml vial 10 ML IV ONE (08:00)
[2021-06-27] MEDS ORDERED: normal saline 1000ml 250 ML IV PRN (08:00)
[2021-06-27] MEDS ORDERED: EPOETIN ALFA-EPBX 20,000 UNIT/ML 1 ML MDV IV ONE (08:00)
[2021-06-27] MEDS ORDERED: heparin 1,000 units/ml 10ml inj HE ONE ×2 (08:00)
== END 2021-06-26 16:00 | DRG 710 ==
LOC: ER 12:06 → ED HOLD 16:11 → UNDOADMIN 16:11 → ED HOLD 16:14 → SUR 3N 21:44 → ICU 2S 06-13 18:02 → MED 3N 06-24 11:21
PROVIDERS: ADMIT Internal Medicine; ATTEND Internal Medicine
PROC: 0D9670Z Drainage of Stomach with Drainage Device, Via Natural or Artificial Opening (ICD-10-PCS; 2021-06-12)
PROC: 5A1945Z Respiratory Ventilation, 24-96 Consecutive Hours (ICD-10-PCS; 2021-06-13)
PROC: 5A09357 Assistance with Respiratory Ventilation, Less than 24 Consecutive Hours, Continuous Positive Airway Pressure (ICD-10-PCS; 2021-06-13)
PROC: 0BH17EZ Insertion of Endotracheal Airway into Trachea, Via Natural or Artificial Opening (ICD-10-PCS; 2021-06-13)
PROC: 04HY32Z Insertion of Monitoring Device into Lower Artery, Percutaneous Approach (ICD-10-PCS; 2021-06-13)
PROC: 4A133B1 Monitoring of Arterial Pressure, Peripheral, Percutaneous Approach (ICD-10-PCS; 2021-06-13)
PROC: 4A133J1 Monitoring of Arterial Pulse, Peripheral, Percutaneous Approach (ICD-10-PCS; 2021-06-13)
PROC: 06HY33Z Insertion of Infusion Device into Lower Vein, Percutaneous Approach (ICD-10-PCS; 2021-06-13)
PROC: 0DN80ZZ Release Small Intestine, Open Approach (ICD-10-PCS; principal; 2021-06-13 19:35)
PROC: 0DB80ZZ Excision of Small Intestine, Open Approach (ICD-10-PCS; 2021-06-14)
PROC: 5A1D90Z Performance of Urinary Filtration, Continuous, Greater than 18 hours Per Day (ICD-10-PCS; 2021-06-16)
PROC: 30233N1 Transfusion of Nonautologous Red Blood Cells into Peripheral Vein, Percutaneous Approach (ICD-10-PCS; 2021-06-16)
PROC: 5A1D90Z Performance of Urinary Filtration, Continuous, Greater than 18 hours Per Day (ICD-10-PCS; 2021-06-17)
PROC: 5A1D90Z Performance of Urinary Filtration, Continuous, Greater than 18 hours Per Day (ICD-10-PCS; 2021-06-18)
PROC: 5A1D90Z Performance of Urinary Filtration, Continuous, Greater than 18 hours Per Day (ICD-10-PCS; 2021-06-19)
PROC: 5A1D70Z Performance of Urinary Filtration, Intermittent, Less than 6 Hours Per Day (ICD-10-PCS; 2021-06-20)
PROC: 0JH63XZ Insertion of Tunneled Vascular Access Device into Chest Subcutaneous Tissue and Fascia, Percutaneous Approach (ICD-10-PCS; 2021-06-21)
PROC: 02H633Z Insertion of Infusion Device into Right Atrium, Percutaneous Approach (ICD-10-PCS; 2021-06-21)
PROC: B548ZZA Ultrasonography of Superior Vena Cava, Guidance (ICD-10-PCS; 2021-06-21)
PROC: B5181ZA Fluoroscopy of Superior Vena Cava using Low Osmolar Contrast, Guidance (ICD-10-PCS; 2021-06-21)
PROC: 5A1D70Z Performance of Urinary Filtration, Intermittent, Less than 6 Hours Per Day (ICD-10-PCS; 2021-06-22)
PROC: 02HV33Z Insertion of Infusion Device into Superior Vena Cava, Percutaneous Approach (ICD-10-PCS; 2021-06-23)
PROC: B548ZZA Ultrasonography of Superior Vena Cava, Guidance (ICD-10-PCS; 2021-06-23)
PROC: 5A1D70Z Performance of Urinary Filtration, Intermittent, Less than 6 Hours Per Day (ICD-10-PCS; 2021-06-24)
DX: A41.9 Sepsis, unspecified organism (principal); J96.00 Acute respiratory failure, unspecified whether with hypoxia or hypercapnia; K72.00 Acute and subacute hepatic failure without coma; N17.0 Acute kidney failure with tubular necrosis; R65.21 Severe sepsis with septic shock; K55.9 Vascular disorder of intestine, unspecified; K65.9 Peritonitis, unspecified; I10 Essential (primary) hypertension; D69.6 Thrombocytopenia, unspecified; R00.0 Tachycardia, unspecified; Z20.822 Contact with and (suspected) exposure to COVID-19; D64.9 Anemia, unspecified; E87.4 Mixed disorder of acid-base balance; E87.1 Hypo-osmolality and hyponatremia; G82.20 Paraplegia, unspecified; R18.8 Other ascites; J90 Pleural effusion, not elsewhere classified; E88.09 Other disorders of plasma-protein metabolism, not elsewhere classified; E80.6 Other disorders of bilirubin metabolism; E11.649 Type 2 diabetes mellitus with hypoglycemia without coma; R80.9 Proteinuria, unspecified; K66.0 Peritoneal adhesions (postprocedural) (postinfection); K40.31 Unilateral inguinal hernia, with obstruction, without gangrene, recurrent; R74.01 Elevation of levels of liver transaminase levels; E86.9 Volume depletion, unspecified; N39.0 Urinary tract infection, site not specified; Z82.41 Family history of sudden cardiac death; Z82.49 Family history of ischemic heart disease and other diseases of the circulatory system; Z83.3 Family history of diabetes mellitus; Z86.61 Personal history of infections of the central nervous system; Z99.2 Dependence on renal dialysis; Z79.899 Other long term (current) drug therapy; E87.5 Hyperkalemia; E87.6 Hypokalemia
CPT/HCPCS: 36415; 36430; 36561; 36569; 36600; 71045; 74176; 76937; 76942; 80048; 80053; 80069; 80074; 80076; 80202; 81001; 82330; 82803; 82948; 83036; 83605; 83735; 83880; 84100; 84132; 84134; 84145; 84478; 84560; 85007; 85018; 85025; 85384; 85610; 85730; 86703; 86885; 86900; 86901; 87040; 87070; 87077; 87081; 87088; 87186; 87635; 90935; 93005; 94002; 94003; 94760; 94799; 97116; 97530; 99285; A4618; A7000; A9270; C1750; C1769; C1894; C9113; E1594; G0257; G0378; J0610; J1170; J1450; J1644; J1720; J1815; J2060; J2150; J2250; J2270; J2405; J2543; J2704; J2765; J3010; J3370; J3475; J3480; J3490; J7030; J7042; J7050; J7060; J7070; J7120; P9035; P9045; P9047; Q4081

== ENCOUNTER 2021-07-14 11:08 | Day surgery (SDC) | payer MEDICAID ==
[~2021-07-14] VITALS: Ht 177.8 cm; Wt 72.8 kg
[~2021-07-14 11:08] MED LIST changes: +NAPR220T67 PO; -NO HOME MEDS; -ONDA8TAB13 PO; -PANT-47 PO
[2021-07-14 11:30] VITALS: BP 91/69
[2021-07-14] MEDS ORDERED: LIDOcaine 1%/PF 5ML 10 MG/ML VIAL SQ ONE (11:30)
[2021-07-14] MEDS ORDERED: PARO10TA85 PO (11:41)
[2021-07-14] MEDS ORDERED: LACT1CAP65 PO (11:41)
[2021-07-14] MEDS ORDERED: INSU100I8 SQ (11:41)
[2021-07-14] MEDS ORDERED: CHOL210P2 PO (11:41)
--- NOTE | 2021-07-14 13:30 | NUR ---
Patient stable for discharge per MD orders s/p TDC removal. Patient a/o x 4 with stable vital signs. 7 mL of 1% lidocaine administered during bedside procedure. All discharge instructions reviewed with patient and all questions answered. Patient verbalizes understanding of all discharge instructions. Procedure site stable with no signs of bleeding or hematoma. Patient dressed and ambulated to [facility] for transport home by spouse. All discharge needs met at this time.
== END 2021-07-14 13:30 | disposition home or self-care (01) ==
LOC: SSTAY O 11:08
PROVIDERS: ATTEND Radiology Vascular & Interventional Radiology
DX: Z45.2 Encounter for adjustment and management of vascular access device (principal); N17.9 Acute kidney failure, unspecified; Z79.4 Long term (current) use of insulin; Z79.899 Other long term (current) drug therapy; Z98.890 Other specified postprocedural states; Z82.49 Family history of ischemic heart disease and other diseases of the circulatory system; Z83.3 Family history of diabetes mellitus
CPT/HCPCS: 36589

== ENCOUNTER 2021-07-21 03:18 | Inpatient (IN) | payer MEDICAID ==
[~2021-07-21] VITALS: Ht 177.8 cm; Wt 72.0 kg
[2021-07-21] VITALS (14 sets, daily range): BP systolic 96–127; BP diastolic 48–85
[~2021-07-21 03:18] MED LIST changes: +CHOL210P2 PO; +INSU100I8 SQ; +LACT1CAP65 PO; -NAPR220T67 PO; +PARO10TA85 PO
--- NOTE | 2021-07-21 04:13 | NUR ---
blood sent to the lab
--- NOTE | 2021-07-21 04:13 | NUR ---
patient given a urinal
--- NOTE | 2021-07-21 04:13 | NUR ---
Zach reid in [facility], [place] - 07/21/21 at 0414 by HEIDI patient states that he was disch
--- NOTE | 2021-07-21 04:14 | NUR ---
patient states that he had hernia surgery on the 2nd, was placed at [facility] for two weeks , patient states that he has been having severe stomach cramps thats taking his breath away.patient states the prostetic thats in place feels like it moving around in his intestines, last bowel movement was today, "runny" and its been like that since june .
[2021-07-21 04:23] LABS: HEMOGLOBIN 12.1 g/dl (14.0-17.9); LYMPHOCYTES # (AUTO) 0.7 X10'3 (1.1-4.8); MONOCYTES # (AUTO) 0.4 X10'3 (0-0.9); MONOCYTES % (AUTO) 12.4 % (2-12)
[2021-07-21 04:26] LABS: EOSINOPHILS % (AUTO) 0.9 % (0-6); HEMATOCRIT 36.7 % (42.0-52.0); LYMPHOCYTES % (AUTO) 21.3 % (21-51); MEAN CORPUSCULAR HEMOGLOBIN 27.5 PG (27.0-31.0); MEAN CORPUSCULAR VOLUME 83.4 FL (78-98); NEUTROPHILS # (AUTO) 2.2 X10'3 (1.8-7.7); NEUTROPHILS % (AUTO) 64.4 % (42-75); PLATELET COUNT 482 X10'3 (140-440); RED CELL DISTRIBUTION WIDTH 15.7 % (11.5-14.5); WHITE BLOOD COUNT 3.5 X10'3 (4.5-11.0)
[2021-07-21 04:35] LABS: ALANINE AMINOTRANSFERASE 112 U/L (12-78); ALBUMIN 2.1 G/DL (3.4-5.0); ALBUMIN/GLOBULIN RATIO 0.4 (1.1-1.5); ALKALINE PHOSPHATASE 213 IU/L (46-116); ANION GAP 14 (8-16); ASPARTATE AMINO TRANSFERASE 56 U/L (10-37); BILIRUBIN,TOTAL 0.5 MG/DL (0.1-1.0); BLOOD UREA NITROGEN 14 MG/DL (7-18); BUN/CREATININE RATIO 8.8 (5.4-32.0); CALCIUM 8.8 MG/DL (8.5-10.1); CHLORIDE 105 MMOL/L (99-107); GLUCOSE 103 MG/DL (70-104); LIPASE 177 U/L (73-393); POTASSIUM 3.4 MMOL/L (3.5-5.1); SODIUM 140 MMOL/L (135-145); TOTAL CARBON DIOXIDE 21.5 MMOL/L (24-32); eGFR 54 ML/MIN
[2021-07-21] MEDS ORDERED: normal saline 1000ML IV soln IVB ONE ×2 (05:15→07:45)
[2021-07-21] MEDS ORDERED: magnesium oxide 400mg tablet PO ONE (05:15)
[2021-07-21] MEDS ORDERED: magnesium 2GM in 50ml NS 50 ML IV ONE (05:15)
[2021-07-21] MEDS ORDERED: potassium CL 10mEq/100ml bag 100 ML IV ONE (05:15)
[2021-07-21] MEDS ORDERED: potassium Cl 20 mEq SR tablet PO ONE (05:15)
[2021-07-21 05:33] LABS: MAGNESIUM 1.4 MG/DL (1.5-2.4)
[2021-07-21 06:53] LABS: CLARITY,URINE CLOUDY (Clear); COLOR,URINE YELLOW (Yellow); GLUCOSE, URINE NEGATIVE (Neg); KETONES,URINE NEGATIVE (Neg); LEUKOCYTE ESTERASE ,URINE TRACE (Neg); NITRITES, URINE NEGATIVE (Neg); OCCULT BLOOD,URINE TRACE-INTACT (Neg); PH,URINE 5.5 (4.8-8.0); PROTEIN,URINE TRACE mg/dl (Neg); UROBILINOGEN,URINE 0.2 E.U/dL (0.2-1.0)
[2021-07-21 07:05] LABS: UA COLLECTION TYPE NON-SPECIFIED
[2021-07-21 07:09] LABS: COARSE GRANULAR CAST 0-3 /LPF (NEGATIVE); HYALINE CASTS 0-3 /LPF (NEGATIVE)
[2021-07-21 07:10] LABS: BACTERIA,URINE 3+ /HPF (Neg); RBC,URINE 0-2 /HPF (0-2); SQUAMOUS EPITHELIAL CELL,UR FEW /LPF (FEW); WBC,URINE 20-30 /HPF (0-4)
[2021-07-21] MEDS ORDERED: cefTRIAXone 1g/NS 100ml IVPB 100 ML IV ONE (07:30)
[2021-07-21] MEDS ORDERED: potassium CL 10mEq/100ml bag 100 ML IV PRN (09:00)
[2021-07-21] MEDS ORDERED: ondansetron/PF 4mg/2ml inj IV PRN ×3 (09:00→19:10)
[2021-07-21] MEDS ORDERED: magnesium 4gm in 100ml NS 100 ML IV PRN (09:00)
[2021-07-21] MEDS ORDERED: HYDROcodone/acetaminophen 5mg/325mg tablet PO PRN (09:00)
[2021-07-21] MEDS ORDERED: magnesium Cl slow-release 64mg tablet PO PRN (09:00)
[2021-07-21] MEDS ORDERED: potassium Cl 20 mEq SR tablet PO PRN ×2 (09:00)
[2021-07-21] MEDS ORDERED: morphine 2 MG/ML inj. syringe IV PRN ×2 (09:00→16:20)
[2021-07-21] MEDS ORDERED: magnesium 2GM in 50ml NS 50 ML IV PRN (09:00)
[2021-07-21] MEDS ORDERED: acetaminophen 325mg tablet PO PRN (09:00)
--- NOTE | 2021-07-21 09:24 | NUR ---
Dr. Mera requested that I recheck patients blood pressure due to hypotensive reading to verify accuracy. Blood pressure at 86/[address] Mera would like to have NS 1 L IV once now due to fluid shifts into the bowel and dehydration. Will place verbal order and Cary Velázquez aware of new order.
[2021-07-21] MEDS ORDERED: normal saline 1000ml 1,000 ML IVB ONE (09:25)
[2021-07-21] MEDS: normal saline 1000ml 1,000 ML IV SCH ×2 (09:27→11:07)
--- NOTE | 2021-07-21 12:12 | NUR ---
Pt states "I don't want to be in the hospital, I just want to go home" Dr Santana aware.
[2021-07-21] MEDS ORDERED: ceFOXitin 2GM-NS 100mL ADDvant 100 ML IV SCH (14:00)
--- NOTE | 2021-07-21 14:02 | NUR ---
attempted to call report, RN to call back when done with procedure
[2021-07-21] MEDS ORDERED: dextrose 50%-water 50ml dispensing syringe IV PRN ×2 (15:45)
[2021-07-21] MEDS ORDERED: DEXTROSE 15 GM of carb/4 tabs (each vial/BOTTLE has 4 tablets) PO PRN ×2 (15:45)
[2021-07-21] MEDS ORDERED: insulin Lispro (HumaLOG) vial - multi-dose SQ SCH (15:45)
[2021-07-21] MEDS ORDERED: MESSAGE TO PHARMACY PO ONE (15:45)
[2021-07-21] MEDS ORDERED: glucagon, human recombinant 1mg kit SUBCUT PRN (15:45)
[2021-07-21] MEDS ORDERED: ringers solution, lacted 1,000 ML IV SCH (16:20)
[2021-07-21] MEDS ORDERED: hydrALAZINE 20mg/ml inj. IV PRN (16:20)
[2021-07-21] MEDS ORDERED: proCHLORperazine 10 MG/2 ml inj IV PRN (16:20)
[2021-07-21] MEDS ORDERED: meperidine/PF 25mg/ml syringe IV PRN (16:20)
[2021-07-21] MEDS ORDERED: labetalol 20mg/4ml (5mg/ml) syringe IV PRN (16:20)
[2021-07-21] MEDS ORDERED: acetaminophen 1,000mg/100ml IV 100 ML IV PRN (16:20)
[2021-07-21] MEDS ORDERED: morphine 4 MG/ML inj SYRINge IV PRN (16:20)
[2021-07-21] MEDS ORDERED: HYDROmorphone/PF 0.2 MG/ML SYRINGE IV PRN (16:20)
[2021-07-21] MEDS ORDERED: fentaNYL /PF 50mcg/ml 5ml ampule ONE (16:35)
[2021-07-21] MEDS ORDERED: midazolam 1 mg/ML 2ml injection ONE (16:35)
[2021-07-21] MEDS ORDERED: propofol inj 20 ML IV ONE (16:49)
[2021-07-21] MEDS ORDERED: rocuronium 10mg/ml inj IV ONE ×2 (16:49→18:43)
[2021-07-21] MEDS ORDERED: LIDOcaine 2% (20mg/ml) 5ml vial ONE (16:49)
[2021-07-21] MEDS ORDERED: ondansetron/PF 4mg/2ml inj ONE (18:18)
[2021-07-21] MEDS ORDERED: dexamethasone sod phosphate 4mg/ml inj. ONE (18:18)
[2021-07-21] MEDS ORDERED: 0.9 % SODIUM CHLORIDE 10 ML VIAL ONE (18:18)
[2021-07-21] MEDS ORDERED: phenylephrine 10mg/ml inj. ONE (18:18)
[2021-07-21] MEDS ORDERED: neostigmine methylsulfate 1 MG/ML 10ml vial ONE (18:57)
[2021-07-21] MEDS ORDERED: glycopyrrolate 0.2mg/ml inj ONE (18:57)
[2021-07-21] MEDS: HYDROmorph./NS 0.2 mg/ml CADD 50 ML IV SCH ×2 (19:00→20:05)
[2021-07-21] MEDS ORDERED: sugammadex 200mg/2ml injection IV ONE (19:00)
[2021-07-21] MEDS ORDERED: morphine 10mg/ml inj. ONE (19:06)
--- NOTE | 2021-07-21 19:10 | NUR ---
Received from OR via BED IN STABLE CONDITION BUT PAINFUL , accompanied by Anesthesiologist and VENTILATOR SPECIALIST report given by VENTILATOR SPECIALIST AND Anesthesiolgist. Addendum: 07/21/21 at 1927 by Melissa Earl RN Amended: Links added.
[2021-07-21] MEDS: HYDROmorphone/PF 0.2 MG/ML SYRINGE IV PRN ×2 (19:19→19:52)
[2021-07-21] MEDS ORDERED: naloxone 0.4 mg/ml inj IV PRN (19:35)
[2021-07-21] MEDS: K and/or MAG REPLACEMENT MC SCH (20:00)
--- NOTE | 2021-07-21 20:00 | NUR ---
Pt refused skin ass due to lot of pain after surgery. AM nurse will follow up.
--- NOTE | 2021-07-21 20:00 | NUR ---
t refused skin ass due to lot of pain after surgery. AM nurse will follow up.
--- NOTE | 2021-07-21 20:10 | NUR ---
PATIENT DISCHARGED FROM PACU IN STABLE CONDITION AFTER REPORT GIVEN TO RN TAKING OVER PATIENTS CARE. PATIENT TRANSPORTED TO ROOM [facility] WITH RN. Addendum: 07/21/21 at 2020 by Melissa Earl RN Amended: Links added.
[2021-07-21] MEDS: insulin glargine (Lantus) pen - multi-dose SQ SCH (21:00)
[2021-07-21] MEDS: heparin, porcine 5000 units/ml vial SQ SCH (21:09)
[2021-07-21] MEDS: lactobacillus rhamnosus 10,000 MMU CELLS/CAPSULE PO SCH (21:10)
[2021-07-21] MEDS: chloestyramine/aspartame 4gm packet PO SCH (21:14)
[2021-07-22] VITALS (10 sets, daily range): BP systolic 105–138; BP diastolic 46–81
[2021-07-22] MEDS: normal saline 1000ml 1,000 ML IV SCH ×2 (05:00→16:30)
[2021-07-22] MEDS: HYDROmorph./NS 0.2 mg/ml CADD 50 ML IV SCH ×10 (05:00→23:00)
[2021-07-22 07:30] LABS: EOSINOPHILS % (AUTO) 0 % (0-6); HEMOGLOBIN 9.4 g/dl (14.0-17.9); LYMPHOCYTES # (AUTO) 0.6 X10'3 (1.1-4.8); MEAN PLATELET VOLUME 7.3 FL (7.4-10.4); MONOCYTES # (AUTO) 0.4 X10'3 (0-0.9); RED BLOOD COUNT 3.47 X10'6 (4.70-6.10)
[2021-07-22 07:32] LABS: BASOPHILS % (AUTO) 0.4 % (0-1); HEMATOCRIT 29.1 % (42.0-52.0); LYMPHOCYTES % (AUTO) 20.5 % (21-51); MEAN CORPUSCULAR HEMOGLOBIN 27.1 PG (27.0-31.0); MEAN CORPUSCULAR HGB CONC 32.3 g/dL (33.0-36.5); MEAN CORPUSCULAR VOLUME 83.8 FL (78-98); MONOCYTES % (AUTO) 14.7 % (2-12); NEUTROPHILS # (AUTO) 1.8 X10'3 (1.8-7.7); NEUTROPHILS % (AUTO) 64.4 % (42-75); PLATELET COUNT 412 X10'3 (140-440); RED CELL DISTRIBUTION WIDTH 15.4 % (11.5-14.5); WHITE BLOOD COUNT 2.8 X10'3 (4.5-11.0)
[2021-07-22 07:37] LABS: ALANINE AMINOTRANSFERASE 60 U/L (12-78); ALBUMIN 1.6 G/DL (3.4-5.0); ALBUMIN/GLOBULIN RATIO 0.4 (1.1-1.5); ALKALINE PHOSPHATASE 135 IU/L (46-116); ANION GAP 12 (8-16); ASPARTATE AMINO TRANSFERASE 25 U/L (10-37); BILIRUBIN,TOTAL 0.3 MG/DL (0.1-1.0); BLOOD UREA NITROGEN 14 MG/DL (7-18); BUN/CREATININE RATIO 8.5 (5.4-32.0); CALCIUM 7.9 MG/DL (8.5-10.1); CHLORIDE 109 MMOL/L (99-107); CREATININE 1.65 MG/DL (0.60-1.10); GLUCOSE 111 MG/DL (70-104); POTASSIUM 4.4 MMOL/L (3.5-5.1); SODIUM 139 MMOL/L (135-145); TOTAL CARBON DIOXIDE 18.3 MMOL/L (24-32); TOTAL PROTEIN 5.5 G/DL (6.4-8.2); eGFR 52 ML/MIN
[2021-07-22 08:55] LABS: PLATELET ESTIMATE NORMAL; TOTAL CELLS COUNTED 100
[2021-07-22 08:57] LABS: SMUDGE CELLS 1+
[2021-07-22] MEDS: chloestyramine/aspartame 4gm packet PO SCH ×3 (09:09→20:25)
[2021-07-22] MEDS: heparin, porcine 5000 units/ml vial SQ SCH ×2 (09:09→20:25)
[2021-07-22] MEDS: lactobacillus rhamnosus 10,000 MMU CELLS/CAPSULE PO SCH ×2 (09:09→20:24)
[2021-07-22] MEDS: NORMAL SALINE IV SCH ×3 (09:10)
[2021-07-22] MEDS: CEFOXITIN IV SCH ×3 (09:10)
[2021-07-22] MEDS: acetaminophen 325mg tablet PO PRN (16:14)
[2021-07-22] MEDS: K and/or MAG REPLACEMENT MC SCH (20:00)
[2021-07-22] MEDS: insulin glargine (Lantus) pen - multi-dose SQ SCH (21:00)
[2021-07-23] MEDS: HYDROmorph./NS 0.2 mg/ml CADD 50 ML IV SCH ×12 (01:00→23:00)
[2021-07-23 02:00] VITALS: BP 122/76
[2021-07-23 06:00] VITALS: BP 102/67
[2021-07-23] MEDS: normal saline 1000ml 1,000 ML IV SCH ×2 (06:48→21:06)
[2021-07-23 07:00] LABS: BASOPHILS % (AUTO) 0.6 % (0-1); EOSINOPHILS # (AUTO) 0.1 X10'3 (0-0.9); EOSINOPHILS % (AUTO) 1.7 % (0-6); HEMATOCRIT 25.9 % (42.0-52.0); HEMOGLOBIN 8.5 g/dl (14.0-17.9); LYMPHOCYTES # (AUTO) 1.2 X10'3 (1.1-4.8); LYMPHOCYTES % (AUTO) 26.8 % (21-51); MEAN CORPUSCULAR HEMOGLOBIN 27.6 PG (27.0-31.0); MEAN CORPUSCULAR HGB CONC 32.7 g/dL (33.0-36.5); MEAN CORPUSCULAR VOLUME 84.3 FL (78-98); MONOCYTES # (AUTO) 0.7 X10'3 (0-0.9); MONOCYTES % (AUTO) 15.3 % (2-12); NEUTROPHILS # (AUTO) 2.4 X10'3 (1.8-7.7); NEUTROPHILS % (AUTO) 55.6 % (42-75); PLATELET COUNT 341 X10'3 (140-440); RED BLOOD COUNT 3.08 X10'6 (4.70-6.10); RED CELL DISTRIBUTION WIDTH 15.4 % (11.5-14.5); WHITE BLOOD COUNT 4.4 X10'3 (4.5-11.0)
[2021-07-23 07:34] LABS: ALANINE AMINOTRANSFERASE 48 U/L (12-78); ALBUMIN 1.4 G/DL (3.4-5.0); ALBUMIN/GLOBULIN RATIO 0.4 (1.1-1.5); ALKALINE PHOSPHATASE 118 IU/L (46-116); ANION GAP 12 (8-16); ASPARTATE AMINO TRANSFERASE 20 U/L (10-37); BILIRUBIN,TOTAL 0.4 MG/DL (0.1-1.0); BLOOD UREA NITROGEN 12 MG/DL (7-18); BUN/CREATININE RATIO 8.8 (5.4-32.0); CALCIUM 7.9 MG/DL (8.5-10.1); CHLORIDE 110 MMOL/L (99-107); CREATININE 1.36 MG/DL (0.60-1.10); GLUCOSE 81 MG/DL (70-104); POTASSIUM 3.7 MMOL/L (3.5-5.1); SODIUM 140 MMOL/L (135-145); TOTAL CARBON DIOXIDE 18.1 MMOL/L (24-32); TOTAL PROTEIN 5.2 G/DL (6.4-8.2); eGFR 66 ML/MIN
[2021-07-23] MEDS: K and/or MAG REPLACEMENT MC SCH ×2 (08:00→20:00)
[2021-07-23] MEDS: heparin, porcine 5000 units/ml vial SQ SCH ×2 (10:36→19:55)
[2021-07-23] MEDS: chloestyramine/aspartame 4gm packet PO SCH ×3 (10:36→21:10)
[2021-07-23] MEDS: lactobacillus rhamnosus 10,000 MMU CELLS/CAPSULE PO SCH ×2 (10:36→19:54)
[2021-07-23 11:00] VITALS: BP 106/58
[2021-07-23] MEDS: CADD PCA waste documentation MC PRN (12:16)
[2021-07-23] MEDS: acetaminophen 325mg tablet PO PRN (13:45)
[2021-07-23] MEDS: levoFLOXACIN-Levaquin 500mg/D5 100 ML IV SCH (13:55)
[2021-07-23 15:00] VITALS: BP 109/58
[2021-07-23 18:00] VITALS: BP 123/59
--- NOTE | 2021-07-23 18:56 | NUR ---
pt.'s wound vac tubing tore off from drsg. MD aware; will apply a wet to dry dressing and get a wound care consult for tomorrow. Abdominal binder placed on patient prior to his ambulation in the hallway. Was able to complete a whole lap around the unit. Sat in the chair for about 2 hours afterward. Did have an episode of diarrhea, unable to obtain sample due to not making it to the bathroom on time.
[2021-07-23] MEDS: insulin glargine (Lantus) pen - multi-dose SQ SCH (21:00)
[2021-07-23 22:00] VITALS: BP 116/67
[2021-07-24] MEDS: HYDROmorph./NS 0.2 mg/ml CADD 50 ML IV SCH ×7 (01:00→19:00)
[2021-07-24 02:00] VITALS: BP 119/83
[2021-07-24 06:00] VITALS: BP 123/78
[2021-07-24 06:25] LABS: BASOPHILS % (AUTO) 0.8 % (0-1); EOSINOPHILS # (AUTO) 0.1 X10'3 (0-0.9); EOSINOPHILS % (AUTO) 2.3 % (0-6); HEMOGLOBIN 8.5 g/dl (14.0-17.9); LYMPHOCYTES # (AUTO) 1.2 X10'3 (1.1-4.8); MEAN PLATELET VOLUME 7.2 FL (7.4-10.4); MONOCYTES # (AUTO) 0.7 X10'3 (0-0.9); NEUTROPHILS # (AUTO) 2.1 X10'3 (1.8-7.7); RED CELL DISTRIBUTION WIDTH 15.4 % (11.5-14.5)
[2021-07-24 06:28] LABS: HEMATOCRIT 26.3 % (42.0-52.0); LYMPHOCYTES % (AUTO) 29.3 % (21-51); MEAN CORPUSCULAR HEMOGLOBIN 27.2 PG (27.0-31.0); MEAN CORPUSCULAR HGB CONC 32.4 g/dL (33.0-36.5); MEAN CORPUSCULAR VOLUME 83.9 FL (78-98); MONOCYTES % (AUTO) 17.5 % (2-12); NEUTROPHILS % (AUTO) 50.1 % (42-75); PLATELET COUNT 368 X10'3 (140-440); RED BLOOD COUNT 3.13 X10'6 (4.70-6.10); WHITE BLOOD COUNT 4.1 X10'3 (4.5-11.0)
[2021-07-24 06:43] LABS: ALANINE AMINOTRANSFERASE 43 U/L (12-78); ALBUMIN 1.5 G/DL (3.4-5.0); ALBUMIN/GLOBULIN RATIO 0.4 (1.1-1.5); ALKALINE PHOSPHATASE 139 IU/L (46-116); ANION GAP 14 (8-16); ASPARTATE AMINO TRANSFERASE 24 U/L (10-37); BILIRUBIN,TOTAL 0.4 MG/DL (0.1-1.0); BLOOD UREA NITROGEN 9 MG/DL (7-18); BUN/CREATININE RATIO 7.1 (5.4-32.0); CALCIUM 7.9 MG/DL (8.5-10.1); CHLORIDE 109 MMOL/L (99-107); CREATININE 1.27 MG/DL (0.60-1.10); GLUCOSE 88 MG/DL (70-104); POTASSIUM 3.6 MMOL/L (3.5-5.1); SODIUM 141 MMOL/L (135-145); TOTAL CARBON DIOXIDE 18.1 MMOL/L (24-32); TOTAL PROTEIN 5.5 G/DL (6.4-8.2); eGFR 71 ML/MIN
[2021-07-24 07:15] LABS: PLATELET ESTIMATE NORMAL; TOTAL CELLS COUNTED 100
[2021-07-24] MEDS: K and/or MAG REPLACEMENT MC SCH ×2 (08:00→20:00)
[2021-07-24] MEDS: chloestyramine/aspartame 4gm packet PO SCH ×3 (08:34→21:00)
[2021-07-24] MEDS: heparin, porcine 5000 units/ml vial SQ SCH ×2 (08:34→20:00)
[2021-07-24] MEDS: levoFLOXACIN-Levaquin 500mg/D5 100 ML IV SCH (08:34)
[2021-07-24] MEDS: lactobacillus rhamnosus 10,000 MMU CELLS/CAPSULE PO SCH ×2 (08:35→20:00)
[2021-07-24 10:01] LABS: C DIFF SPECIMEN=DIARRHEA? ACCEPTABLE; C DIFFICILE TOXINS A&B NEGATIVE (Neg)
[2021-07-24] MEDS: acetaminophen 325mg tablet PO PRN (10:06)
[2021-07-24 11:00] VITALS: BP 118/72
[2021-07-24] MEDS: normal saline 1000ml 1,000 ML IV SCH (11:48)
[2021-07-24] MEDS ORDERED: fluconazole 100mg tablet PO ONE (13:00)
[2021-07-24] MEDS: CADD PCA waste documentation MC PRN (14:08)
--- NOTE | 2021-07-24 14:23 | NUR ---
WOUND VAC EDUCATION PROVIDED BY WOUND CARE 1. Patient instructed to call the Wound Center or their Home Health Agency immediately if: * They notice a change in the color or amount of the fluid in the canister. * Their wound looks more red than usual or has a foul smell. * The skin around their wound looks reddened or irritated. * The dressing feels loose or appears to be loose. * They experience any increase or changes in their pain. * The alarm will not turn off. 2. Patient instructed that they should not be disconnected from suction for more than 2 hours at a time. * If they are not able to get the suction back on, they need to remove the dressing and take all of the foam out of the wound. * Then moisten sterile gauze with normal saline and place on/in the wound. * Change the dressing once a day until arrangements have been made to replace the wound vac dressing. 3. Patient instructed to turn the wound vac machine OFF and call 911 or go to the ED immediately if their canister fills rapidly with blood. 4. If any of these occur while in the hospital tell a nurse immediately. Addendum: 07/24/21 at 1428 by Lani Arambula RN Amended: Links added.
[2021-07-24 15:00] VITALS: BP 126/74
[2021-07-24 18:00] VITALS: BP 124/72
[2021-07-24] MEDS: insulin glargine (Lantus) pen - multi-dose SQ SCH (21:00)
[2021-07-24 22:00] VITALS: BP 110/69
[2021-07-25] MEDS: normal saline 1000ml 1,000 ML IV SCH ×2 (01:42→16:09)
[2021-07-25 02:00] VITALS: BP 119/75
[2021-07-25 05:43] LABS: EOSINOPHILS # (AUTO) 0.2 X10'3 (0-0.9); EOSINOPHILS % (AUTO) 5.5 % (0-6); HEMATOCRIT 25.4 % (42.0-52.0); HEMOGLOBIN 8.4 g/dl (14.0-17.9); LYMPHOCYTES # (AUTO) 1.9 X10'3 (1.1-4.8); MEAN CORPUSCULAR HEMOGLOBIN 27.9 PG (27.0-31.0); MEAN CORPUSCULAR HGB CONC 33.1 g/dL (33.0-36.5); MEAN CORPUSCULAR VOLUME 84.1 FL (78-98); MEAN PLATELET VOLUME 6.8 FL (7.4-10.4); MONOCYTES # (AUTO) 0.7 X10'3 (0-0.9); MONOCYTES % (AUTO) 15.9 % (2-12); NEUTROPHILS # (AUTO) 1.7 X10'3 (1.8-7.7); NEUTROPHILS % (AUTO) 36.6 % (42-75); PLATELET COUNT 389 X10'3 (140-440); RED BLOOD COUNT 3.02 X10'6 (4.70-6.10); RED CELL DISTRIBUTION WIDTH 15.3 % (11.5-14.5); WHITE BLOOD COUNT 4.6 X10'3 (4.5-11.0)
[2021-07-25 05:49] LABS: ALANINE AMINOTRANSFERASE 43 U/L (12-78); ALBUMIN 1.4 G/DL (3.4-5.0); ALBUMIN/GLOBULIN RATIO 0.4 (1.1-1.5); ALKALINE PHOSPHATASE 127 IU/L (46-116); ANION GAP 12 (8-16); ASPARTATE AMINO TRANSFERASE 28 U/L (10-37); BILIRUBIN,TOTAL 0.3 MG/DL (0.1-1.0); BLOOD UREA NITROGEN 5 MG/DL (7-18); BUN/CREATININE RATIO 4.2 (5.4-32.0); CALCIUM 7.8 MG/DL (8.5-10.1); CHLORIDE 111 MMOL/L (99-107); CREATININE 1.19 MG/DL (0.60-1.10); GLUCOSE 75 MG/DL (70-104); POTASSIUM 3.4 MMOL/L (3.5-5.1); SODIUM 143 MMOL/L (135-145); TOTAL CARBON DIOXIDE 20.1 MMOL/L (24-32); TOTAL PROTEIN 5.4 G/DL (6.4-8.2); eGFR 77 ML/MIN
[2021-07-25 06:00] VITALS: BP 119/68
[2021-07-25] MEDS: chloestyramine/aspartame 4gm packet PO SCH ×3 (07:38→21:48)
[2021-07-25] MEDS: lactobacillus rhamnosus 10,000 MMU CELLS/CAPSULE PO SCH ×2 (07:38→20:14)
[2021-07-25] MEDS: heparin, porcine 5000 units/ml vial SQ SCH ×2 (07:39→20:15)
[2021-07-25] MEDS: fluconazole 100mg tablet PO SCH (07:39)
[2021-07-25] MEDS: levoFLOXACIN-Levaquin 500mg/D5 100 ML IV SCH (07:40)
[2021-07-25 11:00] VITALS: BP 122/82
[2021-07-25] MEDS ORDERED: potassium Cl 20mEq/100mL bag 100 ML IV PRN (12:05)
[2021-07-25] MEDS ORDERED: potassium Cl 20 mEq SR tablet PO PRN (12:05)
[2021-07-25] MEDS ORDERED: potassium Cl 40MEQ/250ML bag 250 ML IV PRN (12:05)
[2021-07-25] MEDS ORDERED: potassium CL 10mEq/100ml bag 100 ML IV PRN (12:05)
[2021-07-25] MEDS ORDERED: potassium Cl 40MEQ/1/2NS 520ml 520 ML IV PRN (12:05)
--- NOTE | 2021-07-25 14:26 | NUR ---
Initial: Pt admitted w/ incarcerated right inguinal hernia s/p laparotomy and repair of hernia per EMR. Pt also presented w/ UTI, EMERSON with underlying CKD, and hx T2DM per EMR. Per WOC note pt w/ surgical wound on the abdomen and unstageable PI to coccyx. Pt is currently on full liquid diet w/ no PO intake history per documentation. Per pt's last admit pt requested soft to chew foods. Recommend advancing to Regular/EC7 diet when medically indicated. Recommend Jaylan smoothies BIDBD to assist with wound healing. LBM not noted per physical assessment, though pt is receiving Culturelle per EMR. Will continue to follow closely. Recommendations: 1. Recommend advancing to Regular/EC7/ diet when medically indicated 2. Jaylan smoothies BIDBD; pending MD approval 3. Monitor need for ONS pending PO trends 4. Bowel care per rx 5. Weekly weights Addendum: 07/25/21 at [address] Amended: Links added. Addendum: 07/25/21 at [address] I have reviewed assessment by inclusion internship
[2021-07-25 15:00] VITALS: BP 110/76
[2021-07-25] MEDS ORDERED: JUVEN Smoothie Arginine/Glut./Ca2+Bmb (Juven 19.3pkt) 240ml cup PO SCH (17:30)
[2021-07-25 18:00] VITALS: BP 124/76
[2021-07-25] MEDS: K and/or MAG REPLACEMENT MC SCH ×2 (20:00→20:16)
[2021-07-25] MEDS: insulin glargine (Lantus) pen - multi-dose SQ SCH (21:00)
[2021-07-25 22:00] VITALS: BP 119/79
[2021-07-26 02:00] VITALS: BP 120/79
[2021-07-26] MEDS ORDERED: mag hydrox/Alum hydrox/simeth 30ml oral suspension PO ONE (02:25)
[2021-07-26] MEDS: HYDROmorph./NS 0.2 mg/ml CADD 50 ML IV SCH ×2 (05:00→08:02)
[2021-07-26 05:53] LABS: BASOPHILS # (AUTO) 0.1 X10'3 (0-0.2); BASOPHILS % (AUTO) 0.9 % (0-1); EOSINOPHILS # (AUTO) 0.3 X10'3 (0-0.9); EOSINOPHILS % (AUTO) 4.7 % (0-6); HEMATOCRIT 26.1 % (42.0-52.0); HEMOGLOBIN 8.4 g/dl (14.0-17.9); LYMPHOCYTES % (AUTO) 34.7 % (21-51); MEAN CORPUSCULAR HGB CONC 32.4 g/dL (33.0-36.5); MEAN CORPUSCULAR VOLUME 83.4 FL (78-98); MEAN PLATELET VOLUME 6.5 FL (7.4-10.4); MONOCYTES # (AUTO) 0.8 X10'3 (0-0.9); MONOCYTES % (AUTO) 13.4 % (2-12); NEUTROPHILS # (AUTO) 2.6 X10'3 (1.8-7.7); NEUTROPHILS % (AUTO) 46.3 % (42-75); PLATELET COUNT 446 X10'3 (140-440); RED BLOOD COUNT 3.13 X10'6 (4.70-6.10); RED CELL DISTRIBUTION WIDTH 15.4 % (11.5-14.5); WHITE BLOOD COUNT 5.6 X10'3 (4.5-11.0)
[2021-07-26 06:00] VITALS: BP 113/72
[2021-07-26 06:01] LABS: ALANINE AMINOTRANSFERASE 52 U/L (12-78); ALBUMIN 1.4 G/DL (3.4-5.0); ALBUMIN/GLOBULIN RATIO 0.4 (1.1-1.5); ALKALINE PHOSPHATASE 121 IU/L (46-116); ANION GAP 12 (8-16); ASPARTATE AMINO TRANSFERASE 39 U/L (10-37); BILIRUBIN,TOTAL 0.3 MG/DL (0.1-1.0); BLOOD UREA NITROGEN 5 MG/DL (7-18); BUN/CREATININE RATIO 4.1 (5.4-32.0); CALCIUM 7.9 MG/DL (8.5-10.1); CHLORIDE 110 MMOL/L (99-107); CREATININE 1.21 MG/DL (0.60-1.10); GLUCOSE 80 MG/DL (70-104); POTASSIUM 3.6 MMOL/L (3.5-5.1); SODIUM 142 MMOL/L (135-145); TOTAL CARBON DIOXIDE 19.8 MMOL/L (24-32); TOTAL PROTEIN 5.3 G/DL (6.4-8.2); eGFR 75 ML/MIN
[2021-07-26] MEDS: lactobacillus rhamnosus 10,000 MMU CELLS/CAPSULE PO SCH (07:57)
[2021-07-26] MEDS: chloestyramine/aspartame 4gm packet PO SCH (07:57)
[2021-07-26] MEDS: heparin, porcine 5000 units/ml vial SQ SCH (07:59)
[2021-07-26] MEDS: acetaminophen 325mg tablet PO PRN ×2 (07:59→11:52)
[2021-07-26] MEDS: K and/or MAG REPLACEMENT MC SCH (08:00)
[2021-07-26] MEDS: normal saline 1000ml 1,000 ML IV SCH (08:05)
[2021-07-26] MEDS: fluconazole 100mg tablet PO SCH (08:05)
[2021-07-26 10:00] VITALS: BP 117/68
[2021-07-26] MEDS ORDERED: HYDR-3965 PO (10:30)
[2021-07-26] MEDS ORDERED: AMOX-117 PO (10:30)
[2021-07-26] MEDS ORDERED: FLUC100T64 PO (10:30)
[2021-07-26] MEDS ORDERED: levoFLOXACIN 500mg tablet PO SCH (11:00)
[2021-07-26] MEDS: CADD PCA waste documentation MC PRN (11:12)
--- NOTE | 2021-07-26 12:20 | NUR ---
Discharge Pt. received discharge instructions without any further questions; Pt received instructions on home woundvac without any further questions; Pt. IV removed with catheter intact; Per Dr. Stacy pt ready and stable for discharge. [facility]
== END 2021-07-26 12:20 | disposition home health service (06) | DRG 228 ==
LOC: ER 03:19 → ED HOLD 09:00 → PCU 3S 14:49
PROVIDERS: ADMIT Internal Medicine; ATTEND Internal Medicine
PROC: 0YQ50ZZ Repair Right Inguinal Region, Open Approach (ICD-10-PCS; 2021-07-21)
PROC: 0DN80ZZ Release Small Intestine, Open Approach (ICD-10-PCS; principal; 2021-07-21 16:24)
DX: K40.30 Unilateral inguinal hernia, with obstruction, without gangrene, not specified as recurrent (principal); N17.9 Acute kidney failure, unspecified; L89.152 Pressure ulcer of sacral region, stage 2; I95.9 Hypotension, unspecified; E11.22 Type 2 diabetes mellitus with diabetic chronic kidney disease; E86.0 Dehydration; Z20.822 Contact with and (suspected) exposure to COVID-19; I12.9 Hypertensive chronic kidney disease with stage 1 through stage 4 chronic kidney disease, or unspecified chronic kidney disease; N18.30 Chronic kidney disease, stage 3 unspecified; N39.0 Urinary tract infection, site not specified; Z87.01 Personal history of pneumonia (recurrent); Z82.49 Family history of ischemic heart disease and other diseases of the circulatory system; Z83.3 Family history of diabetes mellitus; K66.0 Peritoneal adhesions (postprocedural) (postinfection)
CPT/HCPCS: 36415; 74018; 74176; 80053; 81001; 82948; 83605; 83690; 83735; 85007; 85025; 87040; 87070; 87075; 87077; 87081; 87088; 87186; 87324; 87449; 87635; 97116; 97162; 97530; 99291; A4618; A6550; A7000; C1758; G0378; J0131; J0694; J0696; J1100; J1170; J1644; J1815; J1956; J2250; J2270; J2274; J2370; J2405; J2704; J2710; J3010; J3475; J3480; J3490; J7030; J7120

== ENCOUNTER 2024-10-02 22:35 | Emergency (ER) | payer MEDICAID ==
[~2024-10-02] VITALS: Ht 175.3 cm; Wt 88.6 kg
[~2024-10-02 22:35] MED LIST changes: +APIX5TAB3 PO; +FLUC100T64 PO; -INSU100I8 SQ; -PARO10TA85 PO
[2024-10-02 22:37] VITALS: BP 155/78; PULSE 89; RESP 16; TEMP 98.4; O2SAT 99
[2024-10-02] MEDS ORDERED: proparacaine 0.5% ophthalmic drops 15ml EACHEYE ONE (23:40)
[2024-10-02] MEDS ORDERED: fluorescein sod 1mg ophthalmic strip EACHEYE ONE (23:40)
--- NOTE | 2024-10-03 00:04 | Physician Documentation ---
History of Present Illness ~ Chief Complaint: Eye Pain Stated Complaint: L EYE PAIN Time Seen by MD: 23:46 Primary Medical Doctor: [facility] This 59-year-old male presents with left eye pain and sensation of foreign body in left eye after using a string tremor in his yd, patient reports that he wiped his eyes after finishing working and felt a piece of debris go into his eye. Patient reports no other acute symptoms or concerns and reports no vision changes. Medication Reconciliation Allergies: Coded Allergies: No Known Allergies (Unverified , 10/02/24) Scheduled Apixaban (Eliquis), 2 TAB PO Q12H Cholestyramine/Aspartame (Questran Light Powder), 4 GM PO TID, (Reported) Fluconazole (Fluconazole), 100 MG PO DAILY Lactobacillus Acidophilus (Probiotic), 1 CAP PO BID, (Reported) Past Medical History Past Medical History: Pneumonia, Hernia Past Surgical History: other Other Past Surgical History: Right hernia repair Patient History: (CHF) Congestive heart failure GRANDFATHER OR GRANDMOTHER (DM Type1) Diabetes mellitus type 1 GRANDFATHER OR GRANDMOTHER GRANDFATHER OR GRANDMOTHER Cardiac arrest GRANDFATHER OR GRANDMOTHER, Onset:50's - 60 Other Past Family History: NONE Alcohol Use: None Drug Use: none Lives with: Family Lives In: Home Review of Systems ROS Foreign body in left eye as stated above in the HPI, otherwise all systems are reviewed and negative. Physical Exam Vital Signs: Temperature: 98.4, Source: Oral, Heart Rate: 89, Respiratory Rate: 16, BP: 155/78, Pulse Oximetry: 99, Weight: 88.640 Physical Exam VITALS: Reviewed and as above. GENERAL: Alert, nontoxic appearing, no apparent distress. HEENT: Left eye conjunctiva injected, no obvious foreign body on initial exam, no periorbital erythema or edema RESPIRATORY: No increased work of breathing, no respiratory distress, speaking in full clear sentences Progress Results/Orders Results/Orders Vital Signs 10/02/24 22:37 Temp 98.4 Pulse 89 Resp 16 B/P (MAP) 155/78 Pulse Ox 99 Medical Decision Making Findings This 59-year-old male was seen in triage room and initial exam of the eye was conducted however patient would require would lumps exam and fluorescein dye, as room was readied to place patient in for this exam he was return to the emergency department lobby by nursing staff. Patient was called back to exam room after approximately 10 minutes though apparently eloped from ED lobby. Eye Diff. Dx: Considerations: Include: [place], Conjuctivits-allergic, Conjuctivitis-bacterial, Conjuctivits-chlamydial, Conjuctivitis-viral, Corneal abrasion, Corneal laceration, Corneal ulceration, Foreign body-corneal, Foreign body-intraocular, Foreign body-lid, Glaucoma, Globe rupture, Hordeolum, Iritis, Orbital cellulitis Departure Disposition: 07 LEFT AWOL/ELOPED Impression: Primary Impression: Foreign body sensation, left eye Additional Impression: Irritation of left eye Condition: Stable Referrals: NO PRIMARY CARE PROVIDER (PCP) Signature Scribe Signature: No scribe Attestation: The note accurately reflects work and decisions made by me.AYSE Orourke 10/03/24 03:33 RICHARD BENITEZ October 03, 2024 00:04
== END 2024-10-03 00:53 | disposition left against medical advice (07) ==
LOC: ER 22:36
DX: H57.8A2 Foreign body sensation, left eye (principal); I50.9 Heart failure, unspecified; Z98.890 Other specified postprocedural states; Z79.899 Other long term (current) drug therapy
CPT/HCPCS: 99283